=== PATIENT | male | born 1950 | race Caucasian/White ===

== ENCOUNTER → 2017-07-17 10:34 | Outpatient (CLI) | payer MEDICARE, BC, SELFPAY ==
[2017-07-17 10:54] LABS: Basophils % 0.5 % (0.1-2.0); Eosinophils # 0.1 K/mm3 (0.0-0.4); Eosinophils % 1.4 % (0.1-12.0); Hematocrit 47.1 % (42.0-52.0); Hemoglobin 15.4 g/dL (14.1-18.0); Lymphocytes # 3.6 K/mm3 (0.7-4.5); Lymphocytes % 43.2 K/mm3 (10-50); Mean Corpuscular HGB Conc 32.8 g/dL (31.8-35.4); Mean Corpuscular Hemoglobin 28.9 pg (27.0-31.2); Mean Corpuscular Volume 88.2 fl (80-94); Mean Platelet Volume 6.9 fl (7.4-10.4); Monocytes # 0.5 K/mm3 (0.1-1.0); Monocytes % 6.2 % (1.7-9.3); Neutrophils # 4.1 K/mm3 (1.8-7.8); Neutrophils % 48.7 % (37.0-80.0); Platelet Count 258 K/mm3 (142-424); Red Blood Count 5.34 M/mm3 (4.60-6.20); Red Cell Distribution Width 12.9 % (11.5-17.5); White Blood Count 8.4 K/mm3 (4.8-10.8)
[2017-07-17 11:23] LABS: Hemoglobin A1C 6.5 % (0.0-7.0)
[2017-07-17 13:03] LABS: Alanine Aminotransferase 52 U/L (12-78); Albumin Level 3.9 gm/dL (3.4-5.0); Albumin/Globulin Ratio 1.2 (1.1-1.8); Alkaline Phosphatase 46 U/L (46-116); Anion Gap 13.8 mEq/L (5-15); Aspartate Amino Transferase 32 U/L (15-37); Bilirubin,Total 0.5 mg/dL (0.2-1.0); Blood Urea Nitrogen 18 mg/dL (7-18); Carbon Dioxide 29 mmol/L (21.0-32.0); Chloride 101 mmol/L (98-107); Chol/HDL Ratio 4.5 (1-3.5); Cholesterol 159 mg/dL (140-200); Creatinine,Serum 1.44 mg/dL (0.70-1.30); Estimated Glomerular Filt Rate 49 ml/min (>60); GFR (African American) 59 ML/MIN (>60); Globulin 3.3 gm/dl (1.3-3.2); Glucose 106 mg/dL (74-106); HDL Cholesterol 35 mg/dL (27-67); LDL Cholesterol 92 mg/dL (0-130); Potassium 4.8 mmoL/L (3.5-5.1); Sodium 139 mmol/L (136-145); Total Protein,Serum 7.2 gm/dL (6.4-8.2); Triglycerides 159 mg/dL (30-200); VLDL Cholesterol 32 mg/dL (0-40)
[2017-07-19 12:08] LABS: Vitamin D 25 Hydroxy 42.1 ng/mL (30.0-100.0)
== END ==
PROVIDERS: PCP Internal Medicine Adolescent Medicine; Visit Provider Internal Medicine Adolescent Medicine
DX: E55.9 Vitamin D deficiency, unspecified (principal); E11.69 Type 2 diabetes mellitus with other specified complication; E78.5 Hyperlipidemia, unspecified
CPT/HCPCS: 36415; 80053; 80061; 82652; 83036; 85025

== ENCOUNTER → 2018-02-10 08:30 | Outpatient (CLI) | payer MEDICARE, BC, SELFPAY ==
[2018-02-10 09:00] LABS: Basophils # 0.1 K/mm3 (0-0.2); Eosinophils # 0.1 K/mm3 (0.0-0.4); Eosinophils % 1.9 % (0.1-12.0); Hematocrit 47.8 % (42.0-52.0); Hemoglobin 15.1 g/dL (14.1-18.0); Lymphocytes # 3.1 K/mm3 (0.7-4.5); Lymphocytes % 41.4 K/mm3 (10-50); Mean Corpuscular HGB Conc 31.6 g/dL (31.8-35.4); Mean Corpuscular Hemoglobin 28.9 pg (27.0-31.2); Mean Corpuscular Volume 91.3 fl (80-94); Monocytes # 0.6 K/mm3 (0.1-1.0); Monocytes % 7.4 % (1.7-9.3); Neutrophils # 3.6 K/mm3 (1.8-7.8); Neutrophils % 48.3 % (37.0-80.0); Platelet Count 229 K/mm3 (142-424); Red Blood Count 5.24 M/mm3 (4.60-6.20); Red Cell Distribution Width 13.5 % (11.5-17.5); White Blood Count 7.5 K/mm3 (4.8-10.8)
[2018-02-10 09:58] LABS: Alanine Aminotransferase 36 U/L (12-78); Albumin Level 3.6 gm/dL (3.4-5.0); Albumin/Globulin Ratio 1.1 (1.1-1.8); Alkaline Phosphatase 42 U/L (46-116); Anion Gap 10.8 mEq/L (5-15); Aspartate Amino Transferase 22 U/L (15-37); Bilirubin,Total 0.4 mg/dL (0.2-1.0); Blood Urea Nitrogen 14 mg/dL (7-18); Calcium 8.5 mg/dL (8.5-10.1); Carbon Dioxide 29 mmol/L (21.0-32.0); Chloride 106 mmol/L (98-107); Chol/HDL Ratio 4.6 (1-3.5); Cholesterol 171 mg/dL (140-200); Creatinine,Serum 1.23 mg/dL (0.70-1.30); Estimated Glomerular Filt Rate 59 ml/min (>60); GFR (African American) 71 ML/MIN (>60); Globulin 3.2 gm/dl (1.3-3.2); Glucose 112 mg/dL (74-106); HDL Cholesterol 37 mg/dL (27-67); LDL Cholesterol 99 mg/dL (0-130); Potassium 4.8 mmoL/L (3.5-5.1); Sodium 141 mmol/L (136-145); Total Protein,Serum 6.8 gm/dL (6.4-8.2); Triglycerides 173 mg/dL (30-200); VLDL Cholesterol 35 mg/dL (0-40)
[2018-02-10 10:05] LABS: Hemoglobin A1C 6.4 % (0.0-7.0)
[2018-02-12 12:52] LABS: Vitamin D 25 Hydroxy 53.7 ng/mL (30.0-100.0)
== END ==
PROVIDERS: PCP Internal Medicine Adolescent Medicine; Visit Provider Internal Medicine Adolescent Medicine
DX: E11.69 Type 2 diabetes mellitus with other specified complication (principal); E78.5 Hyperlipidemia, unspecified; E55.9 Vitamin D deficiency, unspecified
CPT/HCPCS: 36415; 80053; 80061; 82652; 83036; 85025

== ENCOUNTER → 2018-04-03 12:51 | Outpatient (CLI) | payer MEDICARE, BC, SELFPAY | PROVIDERS: Visit Provider Urology | DX: N39.0 Urinary tract infection, site not specified (principal) | CPT/HCPCS: 87086; 87088; 87186 ==

== ENCOUNTER 2018-07-20 20:09 | Emergency (ER) | payer MEDICARE, BC, SELFPAY ==
[2018-07-20 20:10] VITALS: BP 159/81; PULSE 94; RESP 18; TEMP 36.9; O2SAT 91; BMI 34.2
--- NOTE | 2018-07-20 20:45 | CT_ITS ---
CT soft tissue neck w con Ordering Physician: Henry Aaron MD Patient Age: 67 years: Male HISTORY: I.: pastic toothpick stuck in throat 2 days he fell asleep with it and now couldn't find it wasn't woke up. Feels like something in his throat. Smoker... (Patient stated he may be allergic to contrast CT head burning in hands and feet with contrast [address] Aaron increased temp utilize contrast with no reaction noted) TECHNIQUE: Helical CT scanning Following 75 cc, Optiray 350. Axial sagittal and coronal reconstructions performed on CT workstation. All CT scans at this facility used one or more dose reduction techniques , viz: automatic exposure control, ma/Kv adjustment per patient's size, (including targeted exam where dose matched to the indication; i.e. head); or iterative reconstruction technique COMPARISON :No relevant studies of neck. There is CTAchest March 2016 but it did not include lower neck . Rib series March 2016 includes base of neck on plain film . FINDINGS . No abscess evident. No focal area of significant inflammation nor swelling evident.. . No appreciable radiopaque foreign body is identified either.. I would note that a plastic toothpick is likely not radiopaque and thus not evident but if this occurred 2 days ago I would expect to see an area of significant reaction if there were significant mucosal injury from the questionable ingested toothpick The patient does but still have moderate size palatine tonsils bilaterally,.-These contain focal areas calcification. Along with some small subtle less dense areas likely due to crypts... I doubt these are significance but if the symptoms persist ENT follow-up to further suspect warranted if symptoms here at the hypopharynx or above. Other specialists for endoscopy otherwise to be considered if symptoms persist at lower neck . vallecula and piriform sinuses satisfactory. Level of vocal cords unremarkable. Trachea the cervical esophagus down to the upper neck appears satisfactory. There is some larynx calcification which extends back on right more so than left and resides just adjacent to the lower cervical esophagus axial slice 76. Appendix is normal cartilage calcification but noted. Thyroid appears normal size. Calcification throughout aortic arch. Mild fullness at the base the tongue on the right noted but nonspecific. No enhancing mass. Cervical spine. Multilevel degenerative disc changes & cervical spondylosis most pronounced from C3 through C7. Prominent degenerative features at these multiple levels yields bilateral foraminal encroachment as well as spinal stenosis multiple levels throughout C-spine... Significant Disc space narrowing with posterior osteophytic ridging & spurring at each of these levels. .. With this there are anterior marginal osteophytes which are most most evident C5-C6, but also at C4/5 C3/4 which may. Upon the posterior aspect of the cervical esophagus and can be a source of throat irritation or dysphasia as well. Calcifications at carotid bifurcations bilaterally,. Atherosclerotic Calcification most evident at the left carotid bifurcation estimated less than 20-25 % stenosis due to such at left carotid bifurcation and injury of left ICA.. Mucosal thickening inferior aspect of small sphenoid sinus incidentally noted reflecting some mild inflammatory changes here. Otherwise the maxillary sinuses clear and ethmoid air cells unremarkable. IMPRESSION....... 1. No radiopaque nor nonradiopaque foreign body is identified or appreciable.. . No discrete abscess. No focal inflammation or swelling. Swelling The patient has moderate-sized palatine tonsils-which are slightly heterogeneous bilaterally but I believe within normal limits. They do contain calcifications bilaterally. Fair
[2018-07-20 21:03] LABS: Basophils # 0.1 K/mm3 (0-0.2); Basophils % 0.8 % (0.1-2.0); Eosinophils # 0.1 K/mm3 (0.0-0.4); Eosinophils % 1.3 % (0.1-12.0); Hematocrit 46.6 % (42.0-52.0); Hemoglobin 14.8 g/dL (14.1-18.0); Lymphocytes # 3.2 K/mm3 (0.7-4.5); Mean Corpuscular HGB Conc 31.8 g/dL (31.8-35.4); Mean Corpuscular Hemoglobin 28.7 pg (27.0-31.2); Mean Corpuscular Volume 90.4 fl (80-94); Mean Platelet Volume 6.7 fl (7.4-10.4); Monocytes # 0.5 K/mm3 (0.1-1.0); Monocytes % 6.2 % (1.7-9.3); Neutrophils % 50.7 % (37.0-80.0); Platelet Count 224 K/mm3 (142-424); Red Blood Count 5.15 M/mm3 (4.60-6.20); Red Cell Distribution Width 13.3 % (11.5-17.5); White Blood Count 7.9 K/mm3 (4.8-10.8)
[2018-07-20 21:09] LABS: Anion Gap 10.4 mEq/L (5-15); Blood Urea Nitrogen 25 mg/dL (7-18); Carbon Dioxide 30 mmol/L (21.0-32.0); Chloride 104 mmol/L (98-107); Creatinine Clearance Estimated 71 mL/min (50-200); Creatinine,Serum 1.48 mg/dL (0.70-1.30); Estimated Glomerular Filt Rate 47 ml/min (>60); GFR (African American) 57 ML/MIN (>60); Glucose 101 mg/dL (74-106); Potassium 4.4 mmoL/L (3.5-5.1); Sodium 140 mmol/L (136-145)
--- NOTE | 2018-07-20 21:16 | HMH.EDSKAF ---
ED Disposition Clinical Impression: Foreign body, Renal insufficiency Disposition: Home, Self-Care Condition on Discharge: Good Instructions: DI for Foreign Body, Swallowed-Adult Additional Instructions: see dr lee tomorrow at 130 pm Referrals: Obi Lock MD [Primary Care Provider] - - Critical Care Critical Care Time: No Attestation: On 07/20/18, the high probability of a clinically significant, sudden or life threatening deterioration of the following system(s) required my full and direct attention, intervention and personal management. The time I documented below is in addition to time spent performing reported procedures but includes the following listed in this critical care notation. Medical Decision Making - Medical Records Medical records reviewed: Yes: I reviewed the patient's medical records. - Jeronimo Inquiry Pt receiving controlled substance: No Vital Signs: 07/20/18 20:10 Temperature 98.5 F Temperature Source Oral Pulse Rate [Right Brachial] 94 H Respiratory Rate 18 Blood Pressure [Right Arm] 159/81 H Blood Pressure Mean [Right Arm] 107 Blood Pressure Source [Right Arm] Automatic Cuff Blood Pressure Position [Right Arm] Sitting 02 Sat by Pulse Oximetry 91 L Oxygen Delivery Method Room Air - Lab Data Lab results reviewed: Yes: I reviewed the patient's lab results. Lab Results 07/20/18 20:50: WBC 7.9, RBC 5.15, Hgb 14.8, Hct 46.6, MCV 90.4, MCH 28.7, MCHC 31.8, RDW 13.3, Plt Count 224, MPV 6.7 L, Neut % (Auto) 50.7, Lymph % (Auto) 41.0, Crockett % (Auto) 6.2, Eos % (Auto) 1.3, Baso % (Auto) 0.8, Neut # (Auto) 4.0, Lymph # (Auto) 3.2, Crockett # (Auto) 0.5, Eos # (Auto) 0.1, Baso # (Auto) 0.1 07/20/18 20:50: Sodium 140, Potassium 4.4, Chloride 104, Carbon Dioxide 30, Anion Gap 10.4, BUN 25 H, Creatinine 1.48 H, Estimated Creat Clear 71, Estimated GFR 47 L, Est GFR ( Amer) 57 L, Glucose 101, Calcium 9.0 Result diagrams: 07/20/18 20:50 07/20/18 20:50 Orders (Tests/Meds): ED MEDICATIONS Generic Name Dose Route Start Last Admin Trade Name Freq PRN Reason Stop Dose Admin Sodium Chloride 1,000 mls @ 999 mls/hr 07/20/18 21:15 07/20/18 21:18 Sod Chlor 0.9% 1000ml Bag IV 07/20/18 22:15 999 mls/hr .Q1H1M ALBINA Administration Sodium Chloride 10 ml 07/20/18 20:53 Saline Flush 10ml Syringe IV 08/19/18 20:52 NEEDED PRN Maintain IV Site Discontinued Medications Generic Name Dose Route Start Last Admin Trade Name Freq PRN Reason Stop Dose Admin Sodium Chloride 10 ml 07/20/18 22:34 07/20/18 22:35 Rad-Saline Flush 10ml Syringe IV 07/20/18 22:35 10 ml ONCE ONE Administration ORDERS Category Date Time Status CT soft tissue neck w con Stat Cat Scan 07/20/18 20:45 Taken - CT Data CT Scan: Other (neck) Time Received: 22:[address] Reviewed: Yes: I have viewed the radiologist's interpretation Preliminary Findings: Abnormal (see report) Skin/Abscess/FB HPI - General Chief complaint: Dental/Oral Stated complaint: AO 0215 Swallow a tooth pick Time Seen by Provider: 07/20/18 20:30 Mode of Arrival: Ambulatory Source of Information: Patient, Spouse, Medical Record Limitations: No Limitations Description of Symptoms (Recalled from ER Triage Doc. by RN): Believes he swallowed a plastic toothpick on the . He states he isn't 100% sure he swallowed it but believes it is caught in his throat. States he feel asleep with it in his mouth. Denies pain, and any problems swallowing. - History of Present Illness HPI narrative: possible swallowed toothpick - plastic about 2 days ago with lt hypopharynx lt with nofever or change in voice - pt with no esophageal pain MD complaint: foreign body Onset (ago): day(s) Tetanus up to date: unsure Location: neck Severity: moderate Associated symptoms: denies other symptoms Treatments prior to arrival: none - Relate
[2018-07-20 23:09] VITALS: BP 138/79; PULSE 79; RESP 16; TEMP 36.6; O2SAT 99
== END 2018-07-20 23:15 | disposition home or self-care (01) ==
PROVIDERS: Emergency Provider Emergency Medicine; PCP Internal Medicine Adolescent Medicine
DX: T18.0XXA Foreign body in mouth, initial encounter (principal); Z51.81 Encounter for therapeutic drug level monitoring; J45.909 Unspecified asthma, uncomplicated; E78.5 Hyperlipidemia, unspecified; F17.210 Nicotine dependence, cigarettes, uncomplicated; N28.9 Disorder of kidney and ureter, unspecified
CPT/HCPCS: 70491; 80048; 85025; 96365; 99283

== ENCOUNTER → 2018-08-06 10:09 | Outpatient (CLI) | payer MEDICARE, BC, SELFPAY ==
[2018-08-06 11:09] LABS: Basophils # 0.1 K/mm3 (0-0.2); Basophils % 0.9 % (0.1-2.0); Eosinophils # 0.1 K/mm3 (0.0-0.4); Eosinophils % 1.2 % (0.1-12.0); Hematocrit 48.3 % (42.0-52.0); Hemoglobin 15.7 g/dL (14.1-18.0); Lymphocytes # 2.6 K/mm3 (0.7-4.5); Lymphocytes % 36.9 % (10-50); Mean Corpuscular HGB Conc 32.5 g/dL (31.8-35.4); Mean Corpuscular Hemoglobin 29.1 pg (27.0-31.2); Mean Corpuscular Volume 89.4 fl (80-94); Mean Platelet Volume 7.2 fl (7.4-10.4); Monocytes # 0.4 K/mm3 (0.1-1.0); Monocytes % 5.8 % (1.7-9.3); Neutrophils # 3.9 K/mm3 (1.8-7.8); Neutrophils % 55.2 % (37.0-80.0); Platelet Count 244 K/mm3 (142-424); Red Cell Distribution Width 13.4 % (11.5-17.5); White Blood Count 7.1 K/mm3 (4.8-10.8)
[2018-08-06 11:12] LABS: Alanine Aminotransferase 44 U/L (12-78); Albumin Level 3.8 gm/dL (3.4-5.0); Albumin/Globulin Ratio 1.1 (1.1-1.8); Alkaline Phosphatase 49 U/L (46-116); Anion Gap 11.8 mEq/L (5-15); Aspartate Amino Transferase 27 U/L (15-37); Bilirubin,Total 0.6 mg/dL (0.2-1.0); Blood Urea Nitrogen 21 mg/dL (7-18); Calcium 9.2 mg/dL (8.5-10.1); Carbon Dioxide 29 mmol/L (21.0-32.0); Chloride 98 mmol/L (98-107); Chol/HDL Ratio 4.9 (1-3.5); Cholesterol 157 mg/dL (140-200); Creatinine,Serum 1.44 mg/dL (0.70-1.30); Estimated Glomerular Filt Rate 49 ml/min (>60); GFR (African American) 59 ML/MIN (>60); Globulin 3.6 gm/dl (1.3-3.2); Glucose 131 mg/dL (74-106); HDL Cholesterol 32 mg/dL (27-67); LDL Cholesterol 103 mg/dL (0-130); Potassium 4.8 mmoL/L (3.5-5.1); Sodium 134 mmol/L (136-145); Total Protein,Serum 7.4 gm/dL (6.4-8.2); Triglycerides 112 mg/dL (30-200); VLDL Cholesterol 22 mg/dL (0-40)
[2018-08-06 11:30] LABS: Hemoglobin A1C 6.6 % (0.0-7.0)
[2018-08-09 10:09] LABS: Vitamin D 25 Hydroxy 47.6 ng/mL (30.0-100.0)
== END ==
PROVIDERS: Visit Provider Internal Medicine Adolescent Medicine
DX: E78.5 Hyperlipidemia, unspecified (principal); E11.69 Type 2 diabetes mellitus with other specified complication; E55.9 Vitamin D deficiency, unspecified; Z79.84 Long term (current) use of oral hypoglycemic drugs
CPT/HCPCS: 36415; 80053; 80061; 82652; 83036; 85025

== ENCOUNTER → 2018-11-06 12:02 | Outpatient (CLI) | payer MEDICARE, BC, SELFPAY ==
[2018-11-06 12:49] LABS: Basophils # 0.1 K/mm3 (0-0.2); Basophils % 0.7 % (0.1-2.0); Eosinophils # 0.1 K/mm3 (0.0-0.4); Eosinophils % 1.1 % (0.1-12.0); Hematocrit 48.5 % (42.0-52.0); Hemoglobin 15.4 g/dL (14.1-18.0); Lymphocytes # 2.4 K/mm3 (0.7-4.5); Mean Corpuscular HGB Conc 31.9 g/dL (31.8-35.4); Mean Corpuscular Hemoglobin 27.3 pg (27.0-31.2); Mean Corpuscular Volume 85.6 fl (80-94); Mean Platelet Volume 6.6 fl (7.4-10.4); Monocytes # 0.5 K/mm3 (0.1-1.0); Neutrophils # 3.7 K/mm3 (1.8-7.8); Neutrophils % 55.1 % (37.0-80.0); Platelet Count 218 K/mm3 (142-424); Red Blood Count 5.67 M/mm3 (4.60-6.20); Red Cell Distribution Width 13.4 % (11.5-17.5); White Blood Count 6.7 K/mm3 (4.8-10.8)
[2018-11-06 15:43] LABS: Alanine Aminotransferase 39 U/L (12-78); Albumin Level 3.5 gm/dL (3.4-5.0); Alkaline Phosphatase 81 U/L (46-116); Anion Gap 13.8 mEq/L (5-15); Aspartate Amino Transferase 24 U/L (15-37); Bilirubin,Total 0.5 mg/dL (0.2-1.0); Blood Urea Nitrogen 17 mg/dL (7-18); Calcium 8.5 mg/dL (8.5-10.1); Carbon Dioxide 28 mmol/L (21.0-32.0); Chloride 101 mmol/L (98-107); Chol/HDL Ratio 4.2 (1-3.5); Cholesterol 160 mg/dL (140-200); Creatinine,Serum 1.07 mg/dL (0.70-1.30); Estimated Glomerular Filt Rate 69 ml/min (>60); GFR (African American) 83 ML/MIN (>60); Globulin 3.4 gm/dl (1.3-3.2); Glucose 109 mg/dL (74-106); HDL Cholesterol 38 mg/dL (27-67); LDL Cholesterol 90 mg/dL (0-130); Potassium 4.8 mmoL/L (3.5-5.1); Sodium 138 mmol/L (136-145); Total Protein,Serum 6.9 gm/dL (6.4-8.2); Triglycerides 161 mg/dL (30-200); VLDL Cholesterol 32 mg/dL (0-40)
[2018-11-06 15:58] LABS: Hemoglobin A1C 5.9 % (0.0-7.0)
== END ==
PROVIDERS: Visit Provider Internal Medicine Adolescent Medicine
DX: E11.69 Type 2 diabetes mellitus with other specified complication (principal); E78.5 Hyperlipidemia, unspecified; I10 Essential (primary) hypertension; Z79.84 Long term (current) use of oral hypoglycemic drugs
CPT/HCPCS: 36415; 80053; 80061; 83036; 85025

== ENCOUNTER → 2019-03-09 10:26 | Outpatient (CLI) | payer MEDICARE, BC, SELFPAY ==
[2019-03-09 10:46] LABS: Basophils # 0.1 K/mm3 (0-0.2); Basophils % 0.9 % (0.1-2.0); Eosinophils # 0.1 K/mm3 (0.0-0.4); Eosinophils % 1.2 % (0.1-12.0); Hematocrit 50.5 % (42.0-52.0); Hemoglobin 15.6 g/dL (14.1-18.0); Lymphocytes # 2.9 K/mm3 (0.7-4.5); Lymphocytes % 35.7 % (10-50); Mean Corpuscular Hemoglobin 28.8 pg (27.0-31.2); Mean Corpuscular Volume 93.1 fl (80-94); Mean Platelet Volume 7.5 fl (7.4-10.4); Monocytes # 0.5 K/mm3 (0.1-1.0); Monocytes % 6.1 % (1.7-9.3); Neutrophils # 4.6 K/mm3 (1.8-7.8); Neutrophils % 56.3 % (37.0-80.0); Platelet Count 207 K/mm3 (142-424); Red Blood Count 5.42 M/mm3 (4.60-6.20); Red Cell Distribution Width 14.2 % (11.5-17.5); White Blood Count 8.2 K/mm3 (4.8-10.8)
[2019-03-09 11:10] LABS: Hemoglobin A1C 6.4 % (0.0-7.0)
[2019-03-09 12:59] LABS: Alanine Aminotransferase 38 U/L (12-78); Albumin Level 3.5 gm/dL (3.4-5.0); Albumin/Globulin Ratio 1.1 (1.1-1.8); Alkaline Phosphatase 77 U/L (46-116); Aspartate Amino Transferase 25 U/L (15-37); Bilirubin,Total 0.5 mg/dL (0.2-1.0); Blood Urea Nitrogen 15 mg/dL (7-18); Calcium 8.8 mg/dL (8.5-10.1); Carbon Dioxide 30 mmol/L (21.0-32.0); Chloride 101 mmol/L (98-107); Chol/HDL Ratio 3.8 (1-3.5); Cholesterol 144 mg/dL (140-200); Estimated Glomerular Filt Rate 74 ml/min (>60); GFR (African American) 90 ML/MIN (>60); Globulin 3.3 gm/dl (1.3-3.2); Glucose 112 mg/dL (74-106); HDL Cholesterol 38 mg/dL (27-67); LDL Cholesterol 62 mg/dL (0-130); Sodium 139 mmol/L (136-145); Total Protein,Serum 6.8 gm/dL (6.4-8.2); Triglycerides 219 mg/dL (30-200); VLDL Cholesterol 44 mg/dL (0-40)
== END ==
PROVIDERS: Visit Provider Internal Medicine Adolescent Medicine
DX: E11.69 Type 2 diabetes mellitus with other specified complication (principal); Z79.84 Long term (current) use of oral hypoglycemic drugs; E55.9 Vitamin D deficiency, unspecified; E78.5 Hyperlipidemia, unspecified
CPT/HCPCS: 36415; 80053; 80061; 83036; 85025

== ENCOUNTER → 2019-04-17 09:13 | Outpatient (CLI) | payer MEDICARE, BC, SELFPAY ==
--- NOTE | 2019-04-17 09:19 | CA_ITS ---
APPROVED REPORT EXAM: Comprehensive 2D, Doppler, and color-flow Echocardiogram Auto Damage Estimator: Mavis Wiggins RVT Ht: 5 ft 9 in Wt: 240lbs BSA: 2.23 BP: 132/67 mmHg Indications: Bubble Study,Prior PFO closure 2007, Chest Pain, COPD, Shortness of Breath, Palpitations, Hyperlipidemia, Hypertension,Smoker Echo Enhancing Agent Indication: Rule out Shunt Agent(s) / Amount(s) Used: Agitated Saline 5 cc 2D Dimensions LVOT 2.18 cm (M/F) 1.5-2.5 M-Mode Dimensions RVDd 3.22 cm (0.9-2.6) LA Diam 3.70 cm (1.9-4.0) LVDd 4.94 cm (3.5-5.7) Ao Diam 3.50 cm (2.0-3.7) LVDs 2.89 cm (3.5-5.7) AV Cusp 1.80 cm (1.5-2.6) IVSd 1.10 cm (0.6-1.1) PWd 0.81 cm (0.6-1.1) EF (Teich) 72.30% FS 41.50% EDV (Teich) 115.00 mL ESV (Teich) 31.90 mL LV Diastology E/A Ratio 0.82 Mitral Valve MV A Velocity 59.00 (40-130 cm/s) Left Ventricle Left atrium is mildly enlarged, left ventricle is normal size, mild concentric left ventricular hypertrophy, visually estimated ejection fraction 55% with no regional wall motion abnormality, grade 1 diastolic dysfunction seen without tissue Doppler evidence of raise left atrial pressure. Right Ventricle Right atrium and right ventricle mildly enlarged with normal contractility. Aortic Valve Aortic valve is thickened and calcified leaflet chordae display good mobility, there is no aortic stenosis, there is mild aortic insufficiency. Mitral Valve Mitral valve leaflets are minimally thickened, there is no mitral stenosis, there is mild mitral regurgitation. Tricuspid Valve Tricuspid valve is grossly normal, there is mild tricuspid regurgitation, tricuspid regurgitation jet velocity is inadequate for calculation of the right ventricular systolic pressure. Pulmonic Valve Pulmonic valve is poorly visualized. Great Vessels Aortic root is normal size. Pericardium No significant pericardial effusion noted. Conclusion 1. Mild biatrial enlargement, normal left ventricular size, mild concentric left ventricular hypertrophy, visually estimated ejection fraction 55% with no regional wall motion abnormality, grade 1 diastolic dysfunction seen without tissue Doppler evidence of raise left atrial pressure. 2. Mildly enlarged right ventricle with normal contractility. 3. Mild aortic, mild mitral and tricuspid regurgitation. 4. Agitated saline contrast study fails to identify intracardiac shunt. Electronically signed by : Rito Velasco, 04/18/2019 12:28:35
== END ==
PROVIDERS: PCP Internal Medicine Adolescent Medicine; Visit Provider Internal Medicine Adolescent Medicine
DX: Z87.74 Personal history of (corrected) congenital malformations of heart and circulatory system (principal); Q21.1 Atrial septal defect
CPT/HCPCS: 93306

== ENCOUNTER → 2019-06-11 11:59 | Outpatient (CLI) | payer MEDICARE, BC, SELFPAY ==
[2019-06-11 14:03] LABS: Prostate Specific Ag Screen 2.6 ng/mL (0.0-4.0)
== END ==
PROVIDERS: Visit Provider Urology
DX: Z12.5 Encounter for screening for malignant neoplasm of prostate (principal)
CPT/HCPCS: 36415; G0103

== ENCOUNTER → 2019-06-22 12:02 | Outpatient (CLI) | payer MEDICARE, BC, SELFPAY ==
[2019-06-22 12:16] LABS: Basophils # 0.1 K/mm3 (0-0.2); Basophils % 0.6 % (0.1-2.0); Eosinophils # 0.1 K/mm3 (0.0-0.4); Hematocrit 54.8 % (42.0-52.0); Hemoglobin 17.4 g/dL (14.1-18.0); Lymphocytes % 28.8 % (10-50); Mean Corpuscular HGB Conc 31.8 g/dL (31.8-35.4); Mean Corpuscular Hemoglobin 29.4 pg (27.0-31.2); Mean Corpuscular Volume 92.6 fl (80-94); Mean Platelet Volume 7.4 fl (7.4-10.4); Monocytes # 0.5 K/mm3 (0.1-1.0); Monocytes % 4.6 % (1.7-9.3); Neutrophils # 6.9 K/mm3 (1.8-7.8); Platelet Count 212 K/mm3 (142-424); Red Blood Count 5.92 M/mm3 (4.60-6.20); Red Cell Distribution Width 13.5 % (11.5-17.5); White Blood Count 10.6 K/mm3 (4.8-10.8)
[2019-06-22 14:36] LABS: Alanine Aminotransferase 41 U/L (12-78); Albumin Level 3.7 gm/dL (3.4-5.0); Albumin/Globulin Ratio 1.1 (1.1-1.8); Alkaline Phosphatase 85 U/L (46-116); Anion Gap 11.6 mEq/L (5-15); Aspartate Amino Transferase 19 U/L (15-37); Bilirubin,Total 0.6 mg/dL (0.2-1.0); Blood Urea Nitrogen 22 mg/dL (7-18); Calcium 8.8 mg/dL (8.5-10.1); Carbon Dioxide 30 mmol/L (21.0-32.0); Chloride 99 mmol/L (98-107); Chol/HDL Ratio 3.8 (1-3.5); Cholesterol 179 mg/dL (140-200); Creatinine,Serum 1.22 mg/dL (0.70-1.30); Estimated Glomerular Filt Rate 59 ml/min (>60); GFR (African American) 71 ML/MIN (>60); Globulin 3.3 gm/dl (1.3-3.2); Glucose 130 mg/dL (74-106); HDL Cholesterol 47 mg/dL (27-67); LDL Cholesterol 110 mg/dL (0-130); Potassium 4.6 mmoL/L (3.5-5.1); Sodium 136 mmol/L (136-145); Triglycerides 108 mg/dL (30-200); VLDL Cholesterol 22 mg/dL (0-40)
[2019-06-22 15:00] LABS: Hemoglobin A1C 6.7 % (0.0-7.0)
== END ==
PROVIDERS: Visit Provider Internal Medicine Adolescent Medicine
DX: E78.5 Hyperlipidemia, unspecified (principal); E11.69 Type 2 diabetes mellitus with other specified complication; Z79.84 Long term (current) use of oral hypoglycemic drugs
CPT/HCPCS: 36415; 80053; 80061; 83036; 85025

== ENCOUNTER → 2019-10-20 09:48 | Outpatient (CLI) | payer MEDICARE, BC, SELFPAY ==
[2019-10-20 10:25] LABS: Basophils # 0.1 K/mm3 (0-0.2); Eosinophils # 0.1 K/mm3 (0.0-0.4); Eosinophils % 1.8 % (0.1-12.0); Hematocrit 48.2 % (42.0-52.0); Hemoglobin 15.5 g/dL (14.1-18.0); Lymphocytes # 2.8 K/mm3 (0.7-4.5); Lymphocytes % 39.6 % (10-50); Mean Corpuscular HGB Conc 32.1 g/dL (31.8-35.4); Mean Corpuscular Hemoglobin 28.9 pg (27.0-31.2); Mean Corpuscular Volume 89.8 fl (80-94); Mean Platelet Volume 7.2 fl (7.4-10.4); Monocytes # 0.5 K/mm3 (0.1-1.0); Monocytes % 6.8 % (1.7-9.3); Neutrophils # 3.6 K/mm3 (1.8-7.8); Neutrophils % 50.9 % (37.0-80.0); Platelet Count 189 K/mm3 (142-424); Red Blood Count 5.36 M/mm3 (4.60-6.20); Red Cell Distribution Width 13.7 % (11.5-17.5)
[2019-10-20 11:05] LABS: Chloride 101 mmol/L (98-107); Potassium 4.7 mmoL/L (3.5-5.1); Sodium 134 mmol/L (136-145)
[2019-10-20 11:07] LABS: Blood Urea Nitrogen 15 mg/dl (9-20); Estimated Glomerular Filt Rate 84 ml/min (>60); GFR (African American) 101 ML/MIN (>60)
[2019-10-20 11:08] LABS: Alanine Aminotransferase 40 U/L (12-78); Albumin Level 3.7 g/dl (3.5-5.0); Albumin/Globulin Ratio 1.4 (1.1-1.8); Alkaline Phosphatase 71 U/L (38-126); Anion Gap 10.7 mEq/L (5-15); Aspartate Amino Transferase 31 U/L (17-59); Bilirubin,Total 0.6 mg/dl (0.2-1.3); Calcium 8.4 mg/dl (8.4-10.2); Carbon Dioxide 27 mmol/L (22.0-30.0); Chol/HDL Ratio 3.7 (1-3.5); Cholesterol 129 mg/dl (140-200); Globulin 2.6 g/dL (1.3-3.2); Glucose 130 mg/dl (74-100); HDL Cholesterol 35 mg/dl (40-60); Total Protein,Serum 6.3 g/dl (6.3-8.2); Triglycerides 248 mg/dl (30-150); VLDL Cholesterol 50 mg/dL (0-40)
[2019-10-20 11:19] LABS: Direct LDL Cholesterol 86.05 mg/dL (100-129)
[2019-10-20 13:32] LABS: Hemoglobin A1C 6.6 % (4.0-6.0)
[2019-10-21 11:28] LABS: Vitamin D 25 Hydroxy 45.3 ng/mL (30.0-100.0)
== END ==
PROVIDERS: Visit Provider Internal Medicine Adolescent Medicine
DX: E78.5 Hyperlipidemia, unspecified (principal); E55.9 Vitamin D deficiency, unspecified; E11.69 Type 2 diabetes mellitus with other specified complication; Z79.84 Long term (current) use of oral hypoglycemic drugs
CPT/HCPCS: 36415; 80053; 80061; 82652; 83036; 85025

== ENCOUNTER → 2019-11-03 10:11 | Outpatient (CLI) | payer MEDICARE, BC, SELFPAY ==
--- NOTE | 2019-11-03 10:14 | CT_ITS ---
PROCEDURE: CT CHEST W CON CLINCAL INDICATION: COUGH Cough and shortness of air COMPARISON: CTAC CTA-CHEST from 03/28/[address] soft tissue neck w con from 07/20/2018 TECHNIQUE: IV Contrast: 75ml Optiray 350 Axial images obtained with sagittal and coronal reformats. All CT scans at the facility use one or more dose reduction, viz: automated exposure control, ma/kV adjustment per patient size (including targeted exams where dose is matched to indication, i.e. head), or iterative reconstruction technique. FINDINGS: HEART AND MEDIASTINAL STRUCTURES: No mediastinal or hilar mass. No evidence of aortic aneurysm or dissection. No evidence central pulmonary embolus. There is extensive coronary artery calcification. There are a few small mediastinal lymph nodes not significantly changed. LUNGS AND PLEURAL SPACES: COPD with scattered areas of scarring. There is biapical scarring. Scarring is noted in the lingula and the left lower lobe laterally with some mild bronchiectasis in the left lower lobe posterior laterally. No suspicious pulmonary nodules apparent. The scarring in the lung apices appears similar compared to 07/20/2018. The BONY STRUCTURES: Degenerative changes thoracic spine UPPER ABDOMEN: There are left renal cysts ADDITIONAL FINDINGS: No other significant abnormalities. IMPRESSION: 1. COPD with centrilobular emphysema and scattered areas of scarring. 2. Extensive coronary artery calcification. 3. No acute findings Dictated by: Elijah Carr MD 11/04/2019 09:32 Electronically signed by Elijah Carr MD in [place] 11/04/2019 09:32
== END ==
PROVIDERS: PCP Internal Medicine Adolescent Medicine; Visit Provider Internal Medicine Adolescent Medicine
DX: R05 Cough (principal)
CPT/HCPCS: 71260; Q9967

== ENCOUNTER → 2020-03-31 10:06 | Outpatient (CLI) | payer MEDICARE, BC, SELFPAY ==
[2020-03-31 10:54] LABS: Basophils # 0.1 K/mm3 (0-0.2); Basophils % 0.7 % (0.1-2.0); Eosinophils # 0.1 K/mm3 (0.0-0.4); Eosinophils % 1.1 % (0.1-12.0); Hematocrit 51.2 % (42.0-52.0); Hemoglobin 17.3 g/dL (14.1-18.0); Lymphocytes # 3.6 K/mm3 (0.7-4.5); Lymphocytes % 36.1 % (10-50); Mean Corpuscular HGB Conc 33.8 g/dL (31.8-35.4); Mean Corpuscular Hemoglobin 30.5 pg (27.0-31.2); Mean Corpuscular Volume 90.1 fl (80-94); Mean Platelet Volume 7.1 fl (7.4-10.4); Monocytes # 0.6 K/mm3 (0.1-1.0); Monocytes % 5.7 % (1.7-9.3); Neutrophils # 5.6 K/mm3 (1.8-7.8); Neutrophils % 56.4 % (37.0-80.0); Platelet Count 196 K/mm3 (142-424); Red Blood Count 5.68 M/mm3 (4.60-6.20); Red Cell Distribution Width 13.4 % (11.5-17.5)
[2020-03-31 11:03] LABS: Hemoglobin A1C 6.5 % (4.0-6.0)
[2020-03-31 11:49] LABS: Chloride 97 mmol/L (98-107); Sodium 135 mmol/L (136-145)
[2020-03-31 11:51] LABS: Alanine Aminotransferase 48 U/L (12-78); Aspartate Amino Transferase 40 U/L (17-59); Blood Urea Nitrogen 23 mg/dl (9-20); Estimated Glomerular Filt Rate 60 ml/min (>60); GFR (African American) 72 ML/MIN (>60)
[2020-03-31 11:52] LABS: Albumin Level 4.4 g/dl (3.5-5.0); Albumin/Globulin Ratio 1.6 (1.1-1.8); Alkaline Phosphatase 71 U/L (38-126); Bilirubin,Total 0.8 mg/dl (0.2-1.3); Calcium 9.4 mg/dl (8.4-10.2); Carbon Dioxide 30 mmol/L (22.0-30.0); Cholesterol 170 mg/dl (140-200); Globulin 2.7 g/dL (1.3-3.2); Glucose 115 mg/dl (74-100); Total Protein,Serum 7.1 g/dl (6.3-8.2); Triglycerides 248 mg/dl (30-150); VLDL Cholesterol 50 mg/dL (0-40)
[2020-03-31 11:53] LABS: Chol/HDL Ratio 4.9 (1-3.5); HDL Cholesterol 35 mg/dl (40-60)
[2020-03-31 12:04] LABS: Direct LDL Cholesterol 95.35 mg/dL (100-129)
[2020-03-31 12:10] LABS: 25-OH Vitamin D, Total 49.7 ng/mL (30-100)
== END ==
PROVIDERS: Visit Provider Internal Medicine Adolescent Medicine
DX: E78.5 Hyperlipidemia, unspecified (principal); E55.9 Vitamin D deficiency, unspecified; E11.69 Type 2 diabetes mellitus with other specified complication; Z79.84 Long term (current) use of oral hypoglycemic drugs
CPT/HCPCS: 36415; 80053; 80061; 82306; 83036; 85025

== ENCOUNTER → 2020-06-14 14:16 | Outpatient (CLI) | payer MEDICARE, BC, SELFPAY ==
[2020-06-14 15:52] LABS: Prostate Specific Ag Screen 2.4 ng/ml (0.0-4.0)
== END ==
PROVIDERS: Visit Provider Urology
DX: Z12.5 Encounter for screening for malignant neoplasm of prostate (principal)
CPT/HCPCS: 36415; G0103

== ENCOUNTER → 2020-08-06 07:35 | Outpatient (CLI) | payer MEDICARE, BC, SELFPAY ==
[2020-08-06 08:21] LABS: Basophils # 0.1 K/mm3 (0-0.2); Basophils % 0.6 % (0.1-2.0); Eosinophils # 0.1 K/mm3 (0.0-0.4); Eosinophils % 1.4 % (0.1-12.0); Hematocrit 51.5 % (42.0-52.0); Hemoglobin 16.3 g/dL (14.1-18.0); Lymphocytes # 3.3 K/mm3 (0.7-4.5); Lymphocytes % 36.7 % (10-50); Mean Corpuscular HGB Conc 31.8 g/dL (31.8-35.4); Mean Corpuscular Hemoglobin 29.6 pg (27.0-31.2); Mean Corpuscular Volume 93.1 fl (80-94); Mean Platelet Volume 7.5 fl (7.4-10.4); Monocytes # 0.5 K/mm3 (0.1-1.0); Monocytes % 5.3 % (1.7-9.3); Platelet Count 219 K/mm3 (142-424); Red Blood Count 5.53 M/mm3 (4.60-6.20); Red Cell Distribution Width 13.4 % (11.5-17.5); White Blood Count 8.9 K/mm3 (4.8-10.8)
[2020-08-06 08:33] LABS: Hemoglobin A1C 7.8 % (4.0-6.0)
[2020-08-06 09:06] LABS: Chloride 100 mmol/L (98-107); Potassium 5.4 mmoL/L (3.5-5.1); Sodium 139 mmol/L (136-145)
[2020-08-06 09:08] LABS: Alanine Aminotransferase 39 U/L (12-78); Aspartate Amino Transferase 33 U/L (17-59); Blood Urea Nitrogen 19 mg/dl (9-20); Estimated Glomerular Filt Rate 66 ml/min (>60); GFR (African American) 80 ML/MIN (>60)
[2020-08-06 09:09] LABS: Albumin Level 4.4 g/dl (3.5-5.0); Albumin/Globulin Ratio 1.5 (1.1-1.8); Alkaline Phosphatase 96 U/L (38-126); Anion Gap 12.4 mEq/L (5-15); Bilirubin,Total 0.6 mg/dl (0.2-1.3); Calcium 9.5 mg/dl (8.4-10.2); Carbon Dioxide 32 mmol/L (22.0-30.0); Chol/HDL Ratio 4.5 (1-3.5); Cholesterol 167 mg/dl (140-200); Globulin 2.9 g/dL (1.3-3.2); Glucose 143 mg/dl (74-100); HDL Cholesterol 37 mg/dl (40-60); Total Protein,Serum 7.3 g/dl (6.3-8.2); Triglycerides 293 mg/dl (30-150); VLDL Cholesterol 59 mg/dL (0-40)
[2020-08-06 09:20] LABS: Direct LDL Cholesterol 91.49 mg/dL (100-129)
[2020-08-06 09:29] LABS: 25-OH Vitamin D, Total 39.4 ng/mL (30-100)
== END ==
PROVIDERS: Visit Provider Internal Medicine Adolescent Medicine
DX: E78.5 Hyperlipidemia, unspecified (principal); E55.9 Vitamin D deficiency, unspecified; E11.69 Type 2 diabetes mellitus with other specified complication; Z79.84 Long term (current) use of oral hypoglycemic drugs
CPT/HCPCS: 36415; 80053; 80061; 82306; 83036; 85025

== ENCOUNTER → 2020-08-25 06:43 | Outpatient (CLI) | payer MEDICARE, BC, SELFPAY ==
--- NOTE | 2020-08-25 | CA_ITS ---
APPROVED REPORT Exam: Pharmacologic Technologist: Sameera Catherine, Ht: 5 ft 8 in Wt: 250 lbs BSA: 2.25 m2 HR: 59 bpm BP: 126/79 mmHg Medical History Medications: Lisinopril,,,,, Aspirin,,,,, Metoprolol,,,,, Metformin,,,,, Flomax,,,,, MeLOXICAM,,,,, FeNOfibrate,,,,, BenzONATATE,,,,, DiTROPAN,,,,, AtorvaASTATIN,,,,, DOxycycline,,,,, BuPROPIn,,,,, Stress Test Details Test: LEXISCAN HR Resting HR: 79 bpm Max Heart Rate (APMHR): 150.544166 bpm Max HR Achieved: 91 bpm Target HR (85% APMHR): 127.304504 bpm % of APMHR: 60.67 Recovery HR: 78 bpm BP Resting BP: 126/79 mmHg Max BP: 156/85 mmHg Recovery BP: 143.0/83.0 mmHg ECG Resting ECG: NSR, low voltage QRS Clinical Exercise duration: 04:00 min Highest Stage Achieved: Stress ECG Conclusion Symptoms: SOA, Malaise, No CP. Arrhythmias/Ectopy: None ST-T Changes: No significant changes. Conclussion: Unremarkable Lexiscan stress. Myoview images reported separately. Electronically signed by : Rito Velasco, 08/25/2020 12:51:06
--- NOTE | 2020-08-25 07:11 | NM_ITS ---
APPROVED REPORT Exam: Nuclear Stress Test Indication: HTN, DM, HYPERLIPIDEMIA, TOB USE, C.P., SOB, FATIGUE Patient Location: Outpatient Stress Tech: Paris Gomez ID Tech:CELIO Roldan RT(R)(N) Ht: 5 ft 9 in Wt: 246 lbs Bra Size: 38C HR: 59 bpm BP: 126/79 mmHg BSA: 2.26 m2 BMI: 36.3 History: HTN, DM, HYPERLIPIDEMIA, TOB USE, C.P., SOB, FATIGUE Procedure: Patient received a 0.4 mg of intravenous Lexiscan, resting heart rate 59 bpm, resting blood pressure 126/79 mmHg, with Lexiscan maximum heart rate achived was 78 bpm which is Less than 85 % of the maximum predicted heart rate and blood pressure was 143/83 mmHg. With Lexiscan, patient denied any complaint of chest pain. Electrocardiogram Resting electrocardiogram showed sinus rhythm, with Lexiscan there is less than 1.[address] segment depression noted from the baseline EKG. The EKG portion of the Lexiscan is nondiagnostic. Cardiac Stress and Resting SPECT Images: Cardiac Stress and Resting SPECT images were obtained using technetium 99m Myoview 31.1 mCi stress and 10.20 mCi at rest. Gated SPECT for analysis of segmental wall motion and calculation of the ejection fraction also done. Prone images were also obtained. Cardiac stress and resting SPECT images show fixed defect involving the inferior posterior basal wall likely due to nontransmural myocardial scarring, computer derived ejection fraction is 66% with mild inferior wall hypokinesis. Right ventricle is normal size and contractility. Conclusion: 1. The EKG portion of the Lexiscan is nondiagnostic. 2. Scintigraphic evidence of nontransmural myocardial scarring involving the inferior and posterior basal wall, compared to ejection fraction is 66% with segmental wall motion abnormality described above, right ventricle is normal size and contractility. 3. Abnormal Lexiscan Myoview study. Electronically signed by : Rito Velasco, 08/25/2020 14:15:33
== END ==
PROVIDERS: PCP Internal Medicine Adolescent Medicine; Visit Provider Internal Medicine Adolescent Medicine
DX: I25.811 Atherosclerosis of native coronary artery of transplanted heart without angina pectoris (principal)
CPT/HCPCS: 78452; 93017; A9502; J2785

== ENCOUNTER → 2020-09-10 07:51 | Outpatient (CLI) | payer MEDICARE, BC, SELFPAY ==
[2020-09-10 08:09] LABS: Basophils # 0.1 K/mm3 (0-0.2); Basophils % 0.6 % (0.1-2.0); Eosinophils # 0.2 K/mm3 (0.0-0.4); Eosinophils % 1.9 % (0.1-12.0); Hemoglobin 15.5 g/dL (14.1-18.0); Lymphocytes # 3.5 K/mm3 (0.7-4.5); Mean Corpuscular HGB Conc 32.3 g/dL (31.8-35.4); Mean Corpuscular Hemoglobin 29.2 pg (27.0-31.2); Mean Corpuscular Volume 90.4 fl (80-94); Mean Platelet Volume 7.4 fl (7.4-10.4); Monocytes # 0.6 K/mm3 (0.1-1.0); Monocytes % 5.9 % (1.7-9.3); Neutrophils # 5.6 K/mm3 (1.8-7.8); Neutrophils % 56.6 % (37.0-80.0); Platelet Count 195 K/mm3 (142-424); Red Blood Count 5.31 M/mm3 (4.60-6.20); Red Cell Distribution Width 13.6 % (11.5-17.5); White Blood Count 9.9 K/mm3 (4.8-10.8)
[2020-09-10 09:03] LABS: Chloride 102 mmol/L (98-107); Sodium 138 mmol/L (136-145)
[2020-09-10 09:04] LABS: Potassium 5.1 mmoL/L (3.5-5.1)
[2020-09-10 09:06] LABS: Blood Urea Nitrogen 19 mg/dl (9-20); Estimated Glomerular Filt Rate 66 ml/min (>60); GFR (African American) 80 ML/MIN (>60)
[2020-09-10 09:07] LABS: Anion Gap 10.1 mEq/L (5-15); Calcium 9.2 mg/dl (8.4-10.2); Carbon Dioxide 31 mmol/L (22.0-30.0); Glucose 134 mg/dl (74-100)
== END ==
PROVIDERS: Visit Provider Urology
DX: E78.5 Hyperlipidemia, unspecified (principal); I10 Essential (primary) hypertension; J44.9 Chronic obstructive pulmonary disease, unspecified; R94.30 Abnormal result of cardiovascular function study, unspecified; Z82.49 Family history of ischemic heart disease and other diseases of the circulatory system; Z20.822 Contact with and (suspected) exposure to COVID-19
CPT/HCPCS: 36415; 80048; 85025; U0003

== ENCOUNTER 2020-09-12 09:34 | Day surgery (SDC) | payer MEDICARE, BC, SELFPAY ==
[2020-09-12] VITALS (13 sets, daily range): BP systolic 110–139; BP diastolic 60–75; PULSE 74–91; RESP 12–13; TEMP 36.6; O2SAT 90–96; BMI 36.6
--- NOTE | 2020-09-12 | IR_ITS ---
APPROVED REPORT Patient Location: Outpatient Enterprise Business Architect: CELIO Burk RT (R) PROCEDURES Left heart catheterization Left ventriculogram Selective coronary angiogram INDICATION High risk abnormal Myoview, Angina pectoris Informed consent was obtained prior to the procedure. COMPLICATIONS NONE Estimated Blood Loss: LESS THAN 10 ML TECHNIQUE One percent lidocaine used to anesthetize the right anterior aspect of the wrist. The right radial artery was accessed via the Seldinger technique. A 6 Romansh sheath was placed in the right radial artery. 2.5 mg of verapamil, 800 mcg of nitroglycerin, 1mg Lidocaine and 5000 U Heparin were given through the arterial sheath. The Poppa 1 catheter was also used to perform left heart catheterization, left ventriculogram and selective coronary angiogram. At the end of the procedure the sheath was removed good hemostasis was achieved using Traclet band, patient was transferred to the postop holding area in stable condition. ANGIOGRAPHIC RESULTS The left main artery Has a distal tubular smooth 30% stenosis which extends into the ostial LAD The left anterior descending artery Has a smooth 20% stenosis stemming from the left main artery followed by an additional 20 to 30% stenosis. The mid vessel has additional 20% plaque. The first diagonal artery is 2.25 mm in diameter and has an ostial proximal 60% smooth stenosis The circumflex artery Is a large dominant vessel with mild diffuse 10% luminal irregularities The right coronary artery Nondominant with 10% luminal irregularities The MARSH ventriculogram reveals Normal 65% The left ventricular end-diastolic pressure Less than 10 mmHg There is slow flow down the left coronary system consistent with endothelial dysfunction IMPRESSION Mild coronary disease as described above Slow flow down the coronary arteries consistent with endothelial dysfunction Normal ejection fraction Normal left ventricular end-diastolic pressure PLAN 1. Medical management for the coronary artery disease and endothelial dysfunction Electronically signed by : Jason Teran, 09/12/2020 11:15:40
--- NOTE | 2020-09-12 09:39 | CA_ITS ---
APPROVED REPORT EXAM: Comprehensive 2D, Doppler, and color-flow Echocardiogram Vehicle Calibration Engineer: ELIZABETH Rick, RVS Ht: 5 ft 9 in Wt: 248lbs BSA: 2.26 BP: 145/81 mmHg Indications: COPD, HX-ASD closure, ANDRADE, CP, smoker 2D Dimensions IVSd 1.08 cm LVEF (Visual) 68.10 % PWd 0.97 cm LVDd 5.01 cm LVDs 3.10 cm Aortic Root 3.72 cm Left Atrium 3.16 cm LVOT 2.02 cm (M/F) 1.5-2.5 M-Mode Dimensions LA Diam 3.45 cm (1.9-4.0) LVDd 4.76 cm (3.5-5.7) Ao Diam 3.79 cm (2.0-3.7) LVDs 2.93 cm (3.5-5.7) EF (Teich) 68.70% EPSs 0.47 cm FS 38.40% EDV (Teich) 105.40 mL TAPSE 2.06 (<1.7) ESV (Teich) 33.00 mL LV Diastology E Decel Time 263.00 (160-240 msec) E/A Ratio 0.86 MED E' 6.40 (< 7 cm/sec) MED A' 9.00 cm/s E'/MED E' Ratio 9.14 (>14) LAT E' 7.10 (<10 cm/sec) LAT A' 11.50 cm/s E/LAT E' Ratio 8.24 (>14) Aortic Valve LVOT Max 103.00 (70-110 cm/s) LVOT VTI 18.36 cm Mitral Valve MV E Max Arsh. 58.00 (40-130 cm/s) MV A Velocity 68.00 (40-130 cm/s) E/A Ratio 0.86 MV Decel. Time 263.00 (160-240 ms) MV PHT 77.00 ms Pulmonary Valve PV Peak Velocity 67.00 (50-150 cm/s) Tricuspid Valve TR P. Velocity 234.00 cm/s RAP Estimate 10.00 mmHg RVSP 31.90 mmHg Left Ventricle Left atrium is mildly enlarged, left ventricle is normal size, mild concentric left ventricular hypertrophy, visually estimated ejection fraction 55% with no regional wall motion abnormality, grade 1 diastolic dysfunction seen without tissue Doppler evidence of raise left atrial pressure. Right Ventricle Right atrium and right ventricle mildly enlarged with normal contractility. Atria Intra-atrial septum is intact, there is no flow across the interatrial septum. Aortic Valve Aortic valve is minimally thickened and fibrosed, there is no aortic stenosis or aortic insufficiency. Mitral Valve Mitral valve is grossly normal, there is trace mitral regurgitation. Tricuspid Valve Tricuspid grossly normal, there is trace tricuspid regurgitation, tricuspid regurgitation jet velocity is inadequate for calculation of the right ventricular systolic pressure. Pulmonic Valve Pulmonic valve is poorly visualized. Great Vessels Aortic root is normal size. Pericardium No significant pericardial effusion noted. Conclusion 1. Mild biatrial enlargement, normal left ventricular size, mild concentric left ventricular hypertrophy, visually estimated ejection fraction 55% with no regional wall motion abnormality, grade 1 diastolic dysfunction seen without tissue Doppler evidence of raise left atrial pressure. 2. Mildly enlarged right ventricle with normal contractility. 3. Trace mitral and tricuspid regurgitation. 4. No significant pericardial effusion noted. Electronically signed by : Rito Velasco, 09/12/2020 21:38:40
== END 2020-09-12 14:20 | disposition home or self-care (01) ==
LOC: CATHLAB 09:36
PROVIDERS: PCP Internal Medicine Adolescent Medicine; Visit Provider Internal Medicine
DX: E78.5 Hyperlipidemia, unspecified (principal); I10 Essential (primary) hypertension; I35.1 Nonrheumatic aortic (valve) insufficiency; R06.00 Dyspnea, unspecified; R94.30 Abnormal result of cardiovascular function study, unspecified; Z82.49 Family history of ischemic heart disease and other diseases of the circulatory system; I25.10 Atherosclerotic heart disease of native coronary artery without angina pectoris
CPT/HCPCS: 93306; 93458; 99152; C1725; C1769; J1644; Q9967

== ENCOUNTER → 2020-11-07 08:19 | Outpatient (CLI) | payer MEDICARE, BC, SELFPAY ==
[2020-11-07 08:59] LABS: Basophils # 0.3 K/mm3 (0-0.2); Eosinophils # 0.1 K/mm3 (0.0-0.4); Eosinophils % 1.4 % (0.1-12.0); Hematocrit 36.4 % (42.0-52.0); Hemoglobin 15.4 g/dL (14.1-18.0); Lymphocytes # 3.2 K/mm3 (0.7-4.5); Lymphocytes % 31.9 % (10-50); Mean Corpuscular Volume 75.7 fl (80-94); Mean Platelet Volume 17.2 fl (7.4-10.4); Monocytes # 0.7 K/mm3 (0.1-1.0); Monocytes % 6.6 % (1.7-9.3); Neutrophils # 5.8 K/mm3 (1.8-7.8); Neutrophils % 57.2 % (37.0-80.0); Platelet Count 132 K/mm3 (142-424); Red Blood Count 4.81 M/mm3 (4.60-6.20); White Blood Count 10.1 K/mm3 (4.8-10.8)
[2020-11-07 09:01] LABS: Mean Corpuscular HGB Conc 35.2 g/dL (31.8-35.4); Red Cell Distribution Width 17.2 % (11.5-17.5)
[2020-11-07 09:29] LABS: Chloride 99 mmol/L (98-107); Sodium 135 mmol/L (136-145)
[2020-11-07 09:30] LABS: Potassium 4.7 mmoL/L (3.5-5.1)
[2020-11-07 09:32] LABS: Alanine Aminotransferase 36 U/L (12-78); Alkaline Phosphatase 85 U/L (38-126); Anion Gap 12.7 mEq/L (5-15); Aspartate Amino Transferase 30 U/L (17-59); Bilirubin,Total 0.6 mg/dl (0.2-1.3); Blood Urea Nitrogen 18 mg/dl (9-20); Carbon Dioxide 28 mmol/L (22.0-30.0); Cholesterol 148 mg/dl (140-200); Estimated Glomerular Filt Rate 74 ml/min (>60); GFR (African American) 89 ML/MIN (>60); Triglycerides 281 mg/dl (30-150); VLDL Cholesterol 56 mg/dL (0-40)
[2020-11-07 09:33] LABS: Albumin Level 4.3 g/dl (3.5-5.0); Albumin/Globulin Ratio 1.7 (1.1-1.8); Calcium 8.8 mg/dl (8.4-10.2); Chol/HDL Ratio 4.6 (1-3.5); Globulin 2.5 g/dL (1.3-3.2); Glucose 132 mg/dl (74-100); HDL Cholesterol 32 mg/dl (40-60); Total Protein,Serum 6.8 g/dl (6.3-8.2)
[2020-11-07 09:44] LABS: Direct LDL Cholesterol 82.07 mg/dL (100-129)
[2020-11-07 10:04] LABS: Thyroid Stimulating Hormone 3.31 uIU/mL (0.465-4.68)
== END ==
PROVIDERS: Visit Provider Internal Medicine Adolescent Medicine
DX: E11.69 Type 2 diabetes mellitus with other specified complication (principal); E78.5 Hyperlipidemia, unspecified; E55.9 Vitamin D deficiency, unspecified; Z79.84 Long term (current) use of oral hypoglycemic drugs
CPT/HCPCS: 80053; 80061; 82306; 84443; 85025

== ENCOUNTER → 2020-11-09 10:26 | Outpatient (CLI) | payer MEDICARE, BC, SELFPAY ==
[2020-11-09 11:06] LABS: Hemoglobin A1C 6.9 % (4.0-6.0)
== END ==
PROVIDERS: Visit Provider Internal Medicine Adolescent Medicine
DX: E11.69 Type 2 diabetes mellitus with other specified complication (principal); Z79.84 Long term (current) use of oral hypoglycemic drugs
CPT/HCPCS: 36415; 83036

== ENCOUNTER → 2020-12-29 15:19 | Outpatient (CLI) | payer MEDICARE, BC, SELFPAY ==
--- NOTE | 2020-12-29 15:24 | CT_ITS ---
PROCEDURE: CT LUNG SCREENING CLINICAL INDICATION: H/O NICOTINE DEPENDENCE Current smoker 106 pack year smoking history No prior LDLS COMPARISON: CT CT CHEST W CON from 11/03/2019 TECHNIQUE: The exam was performed on a GE Light Speed [address] scanner using 2.90 mGy CTDI. A low dose helical CT CHEST was performed on a multi-detector scanner. All CT scans at the facility use one or more dose reduction, viz: automated exposure control, ma/kV adjustment per patient size (including targeted exams where dose is matched to indication, i.e. head), or iterative reconstruction technique. The LDCT was performed in a facility that meets the criteria for the screening program. Data regarding this exam was submitted to ACR which is an approved registry. The order for this exam indicates that it came as a result of a lung cancer screening counseling shard decision-making visit that included all the elements required of such a visit including smoking cessation. The radiologist interpreting this exam meets the CMS criteria for the LDCT lung cancer screening program. The exam is reported using the Lung-RADS classification scale and reported to the ACR registry. NOTE: This study was performed for the specific purposes of lung cancer screening and is not an alternative to diagnostic chest CT. RADIATION DOSE: CTDI vol(CT dose Index-volume) = 2.90mG DLP (Dose Length Product) = 108.64 mGcm FINDINGS: COPD with panlobular emphysema with scattered areas of scarring greatest in the lung apices. There is chronic volume loss in the left lower lobe with bronchial thickening and some consolidation. This has increased compared to the previous exam. 7 mm nodular opacity is present in the left lower lobe series 4, image 54 not readily apparent on the previous study. This nodule is near the area of atelectasis and could be secondary to post inflammatory changes. Cannot exclude early neoplastic process. Six-month follow-up suggested. No other nodules are apparent OTHER FINDINGS: . severe coronary artery calcification. There is an intracardiac device between the right and left atrium. IMPRESSION: Lung-RADS Category 3 Probably Benign regarding 7 mm nodule in the left lower lobe. Follow-up: [address] Chest without and with contrast. Dictated by: Elijah Carr MD 01/09/2021 08:20 Elijah Carr MD in [place] 01/09/2021 08:20
== END ==
PROVIDERS: PCP Internal Medicine Adolescent Medicine; Visit Provider Internal Medicine Adolescent Medicine
DX: Z87.891 Personal history of nicotine dependence (principal); Z12.2 Encounter for screening for malignant neoplasm of respiratory organs
CPT/HCPCS: 71271

== ENCOUNTER → 2021-03-02 09:50 | Outpatient (CLI) | payer MEDICARE, BC, SELFPAY ==
[2021-03-02 10:43] LABS: Basophils # 0.2 K/mm3 (0-0.2); Basophils % 1.7 % (0.1-2.0); Eosinophils # 0.1 K/mm3 (0.0-0.4); Eosinophils % 0.8 % (0.1-12.0); Hematocrit 51.8 % (42.0-52.0); Hemoglobin 16.9 g/dL (14.1-18.0); Lymphocytes # 3.2 K/mm3 (0.7-4.5); Lymphocytes % 35.1 % (10-50); Mean Corpuscular HGB Conc 32.6 g/dL (31.8-35.4); Mean Corpuscular Hemoglobin 30.1 pg (27.0-31.2); Mean Corpuscular Volume 92.4 fl (80-94); Mean Platelet Volume 7.9 fl (7.4-10.4); Monocytes # 0.5 K/mm3 (0.1-1.0); Monocytes % 5.7 % (1.7-9.3); Neutrophils # 5.1 K/mm3 (1.8-7.8); Neutrophils % 56.8 % (37.0-80.0); Platelet Count 247 K/mm3 (142-424); Red Cell Distribution Width 13.6 % (11.5-17.5)
[2021-03-02 11:03] LABS: Hemoglobin A1C 6.9 % (4.0-6.0)
[2021-03-02 11:19] LABS: Alanine Aminotransferase 28 U/L (12-78); Albumin Level 4.3 g/dl (3.5-5.0); Albumin/Globulin Ratio 1.5 (1.1-1.8); Alkaline Phosphatase 88 U/L (38-126); Aspartate Amino Transferase 29 U/L (17-59); Bilirubin,Total 0.7 mg/dl (0.2-1.3); Blood Urea Nitrogen 13 mg/dl (9-20); Calcium 9.3 mg/dl (8.4-10.2); Carbon Dioxide 30 mmol/L (22.0-30.0); Chloride 100 mmol/L (98-107); Chol/HDL Ratio 4.3 (1-3.5); Cholesterol 153 mg/dl (140-200); Estimated Glomerular Filt Rate 83 ml/min (>60); GFR (African American) 101 ML/MIN (>60); Globulin 2.8 g/dL (1.3-3.2); Glucose 117 mg/dl (74-100); HDL Cholesterol 36 mg/dl (40-60); Sodium 138 mmol/L (136-145); Total Protein,Serum 7.1 g/dl (6.3-8.2); Triglycerides 216 mg/dl (30-150); VLDL Cholesterol 43 mg/dL (0-40)
[2021-03-02 11:35] LABS: 25-OH Vitamin D, Total 58.4 ng/mL (30-100)
[2021-03-02 11:50] LABS: Prostate Specific Ag Screen 2.6 ng/ml (0.0-4.0)
== END ==
PROVIDERS: Visit Provider Internal Medicine Adolescent Medicine
DX: E11.69 Type 2 diabetes mellitus with other specified complication (principal); E78.5 Hyperlipidemia, unspecified; E55.9 Vitamin D deficiency, unspecified; N40.1 Benign prostatic hyperplasia with lower urinary tract symptoms; Z12.5 Encounter for screening for malignant neoplasm of prostate; Z79.84 Long term (current) use of oral hypoglycemic drugs
CPT/HCPCS: 36415; 80053; 80061; 82306; 83036; 85025; G0103

== ENCOUNTER → 2021-03-18 08:56 | Outpatient (CLI) | payer MEDICARE, BC, SELFPAY ==
[2021-03-18 10:10] LABS: Blood Urea Nitrogen 12 mg/dl (9-20); Estimated Glomerular Filt Rate 83 ml/min (>60); GFR (African American) 101 ML/MIN (>60)
== END ==
PROVIDERS: Visit Provider Internal Medicine Adolescent Medicine
DX: R91.1 Solitary pulmonary nodule (principal)
CPT/HCPCS: 36415; 82565; 84520

== ENCOUNTER → 2021-03-20 08:50 | Outpatient (CLI) | payer MEDICARE, BC, SELFPAY ==
--- NOTE | 2021-03-20 08:54 | CT_ITS ---
PROCEDURE: CT CHEST WO CON CLINICAL INDICATION: PULMONARY NODULE COMPARISON: CT CT LUNG SCREENING from 12/29/2020 TECHNIQUE: Axial images obtained with sagittal and coronal reformats. All CT scans at the facility use one or more dose reduction, viz: automated exposure control, ma/kV adjustment per patient size (including targeted exams where dose is matched to indication, i.e. head), or iterative reconstruction technique. FINDINGS: HEART AND MEDIASTINAL STRUCTURES: There is scattered small mediastinal nodes not significantly changed. Severe coronary artery calcifications are present. Status post atrial septal defect repair. 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 Bronchiectasis is present in the left lower lobe posteriorly in a region of parenchymal scarring. Previously noted opacity in the left lower lobe posterior laterally is once again noted not significantly changed and is felt to be related to an area of scarring and or atelectatic change. No new nodules apparent. BONY STRUCTURES: No acute bony abnormalities apparent. UPPER ABDOMEN: There is a hypodense nodule along the upper pole of the left kidney at 15 mm and along the posterior aspect of the left kidney at 24 mm. The latter areas incompletely imaged. These could be due to cyst. In addition however, there is a solid-appearing nodule in the upper pole left kidney at 13 mm. This could be related to hyperdense cyst or solid nodule. This areas traditionally difficult to evaluate by ultrasound therefore, nonemergent MRI of the kidneys without and with enhancement is suggested for further evaluation. ADDITIONAL FINDINGS: No other significant abnormalities. IMPRESSION: COPD with panlobular and paraseptal emphysema with scattered areas of scarring. There is chronic volume loss in the left lower lobe with bronchiectasis. The previously described left lower lobe opacity is not significantly changed and may be due to an area of scarring. No suspicious nodule apparent. Hyperdense 13 mm left renal nodule along the upper pole posterior laterally. This may be due to hyperdense cyst or solid lesion. Consider MRI without and with contrast for further evaluation. Dictated by: Elijah Carr MD 03/20/2021 14:27 Elijah Carr MD in [place] 03/20/2021 14:27
== END ==
PROVIDERS: PCP Internal Medicine Adolescent Medicine; Visit Provider Internal Medicine Adolescent Medicine
DX: R91.1 Solitary pulmonary nodule (principal)
CPT/HCPCS: 71250

== ENCOUNTER → 2021-06-06 07:33 | Outpatient (CLI) | payer MEDICARE, SELFPAY ==
[2021-06-06 07:58] LABS: Basophils # 0.1 K/mm3 (0-0.2); Basophils % 1.1 % (0.1-2.0); Eosinophils # 0.1 K/mm3 (0.0-0.4); Eosinophils % 1.2 % (0.1-12.0); Hematocrit 52.2 % (42.0-52.0); Hemoglobin 16.7 g/dL (14.1-18.0); Lymphocytes # 3.2 K/mm3 (0.7-4.5); Lymphocytes % 36.3 % (10-50); Mean Corpuscular HGB Conc 31.9 g/dL (31.8-35.4); Mean Corpuscular Hemoglobin 29.9 pg (27.0-31.2); Mean Corpuscular Volume 93.6 fl (80-94); Mean Platelet Volume 7.5 fl (7.4-10.4); Monocytes # 0.5 K/mm3 (0.1-1.0); Monocytes % 5.8 % (1.7-9.3); Neutrophils # 4.8 K/mm3 (1.8-7.8); Neutrophils % 55.7 % (37.0-80.0); Platelet Count 233 K/mm3 (142-424); Red Blood Count 5.58 M/mm3 (4.60-6.20); Red Cell Distribution Width 13.6 % (11.5-17.5); White Blood Count 8.7 K/mm3 (4.8-10.8)
[2021-06-06 09:24] LABS: Alanine Aminotransferase 29 U/L (12-78); Albumin Level 4.5 g/dl (3.5-5.0); Albumin/Globulin Ratio 1.8 (1.1-1.8); Alkaline Phosphatase 81 U/L (38-126); Anion Gap 10.7 mEq/L (5-15); Aspartate Amino Transferase 28 U/L (17-59); Bilirubin,Total 0.7 mg/dl (0.2-1.3); Blood Urea Nitrogen 13 mg/dl (9-20); Calcium 9.3 mg/dl (8.4-10.2); Carbon Dioxide 34 mmol/L (22.0-30.0); Chloride 96 mmol/L (98-107); Cholesterol 168 mg/dl (140-200); Estimated Glomerular Filt Rate 74 ml/min (>60); GFR (African American) 89 ML/MIN (>60); Globulin 2.5 g/dL (1.3-3.2); Glucose 113 mg/dl (74-100); HDL Cholesterol 42 mg/dl (40-60); Potassium 4.7 mmoL/L (3.5-5.1); Sodium 136 mmol/L (136-145); Triglycerides 261 mg/dl (30-150); VLDL Cholesterol 52 mg/dL (0-40)
[2021-06-06 09:34] LABS: Hemoglobin A1C 6.6 % (4.0-6.0)
[2021-06-06 09:35] LABS: Direct LDL Cholesterol 98.19 mg/dL (100-129)
[2021-06-06 09:40] LABS: 25-OH Vitamin D, Total 41.1 ng/mL (30-100)
== END ==
PROVIDERS: Visit Provider Internal Medicine Adolescent Medicine
DX: E11.69 Type 2 diabetes mellitus with other specified complication (principal); E78.5 Hyperlipidemia, unspecified; E55.9 Vitamin D deficiency, unspecified; Z79.84 Long term (current) use of oral hypoglycemic drugs
CPT/HCPCS: 36415; 80053; 80061; 82306; 83036; 85025

== ENCOUNTER → 2021-06-20 08:16 | Outpatient (POV) | payer MEDICARE, SELFPAY | PROVIDERS: Visit Provider Dermatology | DX: Z00.00 Encounter for general adult medical examination without abnormal findings (principal) ==

== ENCOUNTER → 2021-09-01 07:54 | Outpatient (CLI) | payer MEDICARE, SELFPAY ==
[2021-09-01 08:46] LABS: Basophils # 0.1 K/mm3 (0-0.2); Eosinophils # 0.1 K/mm3 (0.0-0.4); Eosinophils % 1.4 % (0.1-12.0); Hemoglobin 16.4 g/dL (14.1-18.0); Lymphocytes # 2.5 K/mm3 (0.7-4.5); Lymphocytes % 36.9 % (10-50); Mean Corpuscular HGB Conc 32.8 g/dL (31.8-35.4); Mean Corpuscular Hemoglobin 30.7 pg (27.0-31.2); Mean Corpuscular Volume 93.5 fl (80-94); Mean Platelet Volume 7.8 fl (7.4-10.4); Monocytes # 0.5 K/mm3 (0.1-1.0); Monocytes % 7.3 % (1.7-9.3); Neutrophils # 3.7 K/mm3 (1.8-7.8); Neutrophils % 53.5 % (37.0-80.0); Platelet Count 245 K/mm3 (142-424); Red Blood Count 5.34 M/mm3 (4.60-6.20); Red Cell Distribution Width 13.9 % (11.5-17.5); White Blood Count 6.9 K/mm3 (4.8-10.8)
[2021-09-01 09:43] LABS: Chloride 100 mmol/L (98-107); Potassium 4.8 mmoL/L (3.5-5.1); Sodium 137 mmol/L (136-145)
[2021-09-01 09:46] LABS: Alanine Aminotransferase 26 U/L (12-78); Albumin Level 4.2 g/dl (3.5-5.0); Albumin/Globulin Ratio 1.7 (1.1-1.8); Alkaline Phosphatase 92 U/L (38-126); Anion Gap 12.8 mEq/L (5-15); Aspartate Amino Transferase 28 U/L (17-59); Bilirubin,Total 0.7 mg/dl (0.2-1.3); Blood Urea Nitrogen 18 mg/dl (9-20); Carbon Dioxide 29 mmol/L (22.0-30.0); Cholesterol 144 mg/dl (140-200); Estimated Glomerular Filt Rate 74 ml/min (>60); GFR (African American) 89 ML/MIN (>60); Globulin 2.5 g/dL (1.3-3.2); Total Protein,Serum 6.7 g/dl (6.3-8.2); Triglycerides 136 mg/dl (30-150); VLDL Cholesterol 27 mg/dL (0-40)
[2021-09-01 09:47] LABS: Calcium 8.5 mg/dl (8.4-10.2); Chol/HDL Ratio 4.4 (1-3.5); Glucose 114 mg/dl (74-100); HDL Cholesterol 33 mg/dl (40-60)
[2021-09-01 09:57] LABS: Direct LDL Cholesterol 80.94 mg/dL (100-129)
[2021-09-01 10:04] LABS: 25-OH Vitamin D, Total 32.7 ng/mL (30-100)
== END ==
PROVIDERS: Visit Provider Internal Medicine Adolescent Medicine
DX: E11.69 Type 2 diabetes mellitus with other specified complication (principal); E78.5 Hyperlipidemia, unspecified; E55.9 Vitamin D deficiency, unspecified; Z79.84 Long term (current) use of oral hypoglycemic drugs
CPT/HCPCS: 36415; 80053; 80061; 82306; 83036; 85025

== ENCOUNTER → 2021-10-25 07:21 | Outpatient (CLI) | payer MEDICARE, SELFPAY ==
[2021-10-25 08:29] LABS: Blood Urea Nitrogen 18 mg/dl (9-20); Estimated Glomerular Filt Rate 66 ml/min (>60); GFR (African American) 80 ML/MIN (>60)
== END ==
PROVIDERS: Visit Provider Urology
DX: N28.89 Other specified disorders of kidney and ureter (principal)
CPT/HCPCS: 36415; 82565; 84520

== ENCOUNTER → 2021-10-26 08:00 | Outpatient (CLI) | payer MEDICARE, SELFPAY | PROVIDERS: PCP Internal Medicine Adolescent Medicine; Visit Provider Urology | DX: N28.89 Other specified disorders of kidney and ureter (principal) ==

== ENCOUNTER → 2021-11-02 09:04 | Outpatient (CLI) | payer MEDICARE, SELFPAY ==
--- NOTE | 2021-11-02 09:08 | MR_ITS ---
FINAL REPORT CLINICAL HISTORY: RENAL MASS. RENAL MASS. Abnormal CT scan at [place]. 20ml Prohance given. COMPARISON: Outside CT of the abdomen and pelvis dated 09/26/2021 FINDINGS: Multiplanar MR imaging of the abdomen was performed without and with contrast. Images of the liver reveal no evidence of mass. There is no evidence of biliary ductal dilatation. The gallbladder has an unremarkable appearance. There is a 22 mm mass in the left kidney with imaging characteristics consistent with a hemorrhagic cyst. This shows no evidence of contrast enhancement. There are several less than 1 cm right renal masses consistent with simple cyst. There are 3 left renal masses measuring up to 24 mm consistent with simple cysts. No abnormal contrast enhancement is seen on the postcontrast images. IMPRESSION: Multiple bilateral simple cysts. 22 mm left renal hemorrhagic cyst. Reviewed, Interpreted and Dictated by Grey Holguin III, MD Transcribed by Teresa Youssef Authenticated and [facility]
--- NOTE | 2021-11-02 09:08 | MR_ITS ---
FINAL REPORT CLINICAL HISTORY: RENAL MASS. Abnormal CT scan at [place]. 20ml Prohance given. COMPARISON: Outside CT abdomen and pelvis dated 09/26/2021 FINDINGS: MRI PELVIS WITHOUT AND WITH CONTRAST Multiplanar MR imaging of the pelvis was performed without and with contrast. There is sigmoid diverticulosis with no evidence of diverticulitis. The right testicle is high riding. 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 No other mass or adenopathy is identified. No abnormal fluid collection is seen. No abnormal contrast enhancement is seen on the postcontrast images. IMPRESSION: No evidence of mass and no abnormal contrast enhancement. Reviewed, Interpreted and Dictated by Grey Holguin III, MD Transcribed by Teresa Youssef Authenticated and [facility]
== END ==
PROVIDERS: PCP Internal Medicine Adolescent Medicine; Visit Provider Urology
DX: N28.89 Other specified disorders of kidney and ureter (principal)
CPT/HCPCS: 72197; 74183; A9576

== ENCOUNTER → 2021-12-05 07:16 | Outpatient (CLI) | payer MEDICARE, SELFPAY ==
[2021-12-05 08:14] LABS: Basophils # 0.1 K/mm3 (0-0.2); Basophils % 0.6 % (0.1-2.0); Eosinophils # 0.1 K/mm3 (0.0-0.4); Eosinophils % 1.2 % (0.1-12.0); Hematocrit 45.6 % (42.0-52.0); Hemoglobin 15.8 g/dL (14.1-18.0); Lymphocytes # 2.8 K/mm3 (0.7-4.5); Mean Corpuscular HGB Conc 34.5 g/dL (31.8-35.4); Mean Corpuscular Hemoglobin 30.5 pg (27.0-31.2); Mean Corpuscular Volume 88.2 fl (80-94); Monocytes # 0.6 K/mm3 (0.1-1.0); Monocytes % 6.9 % (1.7-9.3); Neutrophils # 4.5 K/mm3 (1.8-7.8); Neutrophils % 56.2 % (37.0-80.0); Platelet Count 200 K/mm3 (142-424); Red Blood Count 5.17 M/mm3 (4.60-6.20); Red Cell Distribution Width 13.5 % (11.5-17.5)
[2021-12-05 08:52] LABS: Alanine Aminotransferase 31 U/L (12-78); Albumin Level 3.9 g/dl (3.5-5.0); Albumin/Globulin Ratio 1.5 (1.1-1.8); Alkaline Phosphatase 83 U/L (38-126); Anion Gap 11.6 mEq/L (5-15); Aspartate Amino Transferase 29 U/L (17-59); Bilirubin,Total 0.3 mg/dl (0.2-1.3); Blood Urea Nitrogen 14 mg/dl (9-20); Calcium 8.8 mg/dl (8.4-10.2); Carbon Dioxide 29 mmol/L (22.0-30.0); Chloride 101 mmol/L (98-107); Chol/HDL Ratio 4.7 (1-3.5); Cholesterol 149 mg/dl (140-200); Estimated Glomerular Filt Rate 83 ml/min (>60); GFR (African American) 101 ML/MIN (>60); Globulin 2.6 g/dL (1.3-3.2); Glucose 133 mg/dl (74-100); HDL Cholesterol 32 mg/dl (40-60); Potassium 4.6 mmoL/L (3.5-5.1); Sodium 137 mmol/L (136-145); Total Protein,Serum 6.5 g/dl (6.3-8.2); Triglycerides 280 mg/dl (30-150); VLDL Cholesterol 56 mg/dL (0-40)
[2021-12-05 09:03] LABS: Direct LDL Cholesterol 77.61 mg/dL (100-129)
[2021-12-05 09:08] LABS: 25-OH Vitamin D, Total 36.3 ng/mL (30-100)
[2021-12-05 09:23] LABS: Thyroid Stimulating Hormone 3.29 uIU/mL (0.465-4.68)
== END ==
PROVIDERS: PCP Internal Medicine Adolescent Medicine; Visit Provider Internal Medicine Adolescent Medicine
DX: E11.69 Type 2 diabetes mellitus with other specified complication (principal); E78.5 Hyperlipidemia, unspecified; E55.9 Vitamin D deficiency, unspecified; Z79.84 Long term (current) use of oral hypoglycemic drugs
CPT/HCPCS: 36415; 80053; 80061; 82306; 84443; 85025

== ENCOUNTER → 2022-03-03 09:50 | Outpatient (CLI) | payer MEDICARE, SELFPAY ==
[2022-03-03 11:29] LABS: Chloride 97 mmol/L (98-107); Potassium 5.3 mmoL/L (3.5-5.1); Sodium 138 mmol/L (136-145)
[2022-03-03 11:32] LABS: Alanine Aminotransferase 21 U/L (12-78); Albumin Level 4.3 g/dl (3.5-5.0); Albumin/Globulin Ratio 1.5 (1.1-1.8); Alkaline Phosphatase 101 U/L (38-126); Anion Gap 15.3 mEq/L (5-15); Aspartate Amino Transferase 28 U/L (17-59); Bilirubin,Total 0.2 mg/dl (0.2-1.3); Blood Urea Nitrogen 16 mg/dl (9-20); Calcium 8.8 mg/dl (8.4-10.2); Carbon Dioxide 31 mmol/L (22.0-30.0); Estimated Glomerular Filt Rate 73 ml/min (>60); GFR (African American) 89 ML/MIN (>60); Globulin 2.9 g/dL (1.3-3.2); Glucose 116 mg/dl (74-100); Total Protein,Serum 7.2 g/dl (6.3-8.2)
== END ==
PROVIDERS: PCP Internal Medicine Adolescent Medicine; Visit Provider Ophthalmology
DX: H02.423 Myogenic ptosis of bilateral eyelids (principal)
CPT/HCPCS: 36415; 80053

== ENCOUNTER → 2022-03-23 10:12 | Outpatient (CLI) | payer MEDICARE, SELFPAY ==
--- NOTE | 2022-03-23 10:18 | XR_ITS ---
FINAL REPORT CLINICAL HISTORY: HYPOXIA COMPARISON: 03/18/2017 FINDINGS: TWO-VIEW CHEST The heart size is normal. The mediastinum is normal. The lungs are hyperinflated consistent with COPD. There is pulmonary vascular congestion. There are bibasilar opacities, may represent atelectasis or pneumonia. There are moderate degenerative changes of the thoracic spine. There is no pneumothorax. IMPRESSION: Bibasilar opacities, may represent atelectasis or pneumonia. Reviewed, Interpreted and Dictated by Grey Holguin III, MD Transcribed by Yasmin Coyne Authenticated and [facility]
[2022-03-23 10:51] LABS: ABG Base Excess 0.4 mmol/L (-2.4-2.3); ABG HCO3 25.5 mmhg (22.0-26.0); ABG Oxygen Saturation 92 % (90-100); ABG PCO2 44.1 mmhg (35.0-45.0); ABG PH 7.38 mmol/L (7.35-7.45); ABG PO2 62.8 mmhg (80-100); ABG TCO2 26.9 mmhg (23-27); Allen's Test Acceptable; Oxygen 21 %; Source Right Brachial
== END ==
PROVIDERS: PCP Internal Medicine Adolescent Medicine; Visit Provider Internal Medicine Adolescent Medicine
DX: R09.02 Hypoxemia (principal); R79.81 Abnormal blood-gas level
CPT/HCPCS: 71046; 82803; 94762

== ENCOUNTER → 2022-06-21 13:15 | Outpatient (CLI) | payer MEDICARE, SELFPAY ==
--- NOTE | 2022-06-21 13:21 | XR_ITS ---
FINAL REPORT CLINICAL HISTORY: RIGHT FLANK PAIN FINDINGS: A single supine view of the abdomen was obtained. There is a large amount of stool in the colon, consistent with constipation. Otherwise, the bowel gas pattern is unremarkable. Vascular calcifications are noted. Osseous structures are within normal limits. IMPRESSION: Large amount of stool in the colon consistent with constipation. Reviewed, Interpreted and Dictated by Domitila Johnson MD Transcribed by Teresa Youssef Authenticated and [facility]
== END ==
PROVIDERS: PCP Internal Medicine Adolescent Medicine; Visit Provider Nurse Practitioner Family
DX: R10.9 Unspecified abdominal pain (principal)
CPT/HCPCS: 74018

== ENCOUNTER → 2022-07-02 14:53 | Outpatient (CLI) | payer MEDICARE, SELFPAY ==
--- NOTE | 2022-07-02 14:56 | CT_ITS ---
FINAL REPORT TECHNIQUE: Axial CT images were performed from the lung bases through the pubic symphysis. Coronal reformats were submitted and reviewed. This study was performed with techniques to keep radiation doses as low as reasonably achievable (ALARA). Individualized dose reduction techniques using automated exposure control or adjustment of mA and/or kV according to the patient's size were employed. CLINICAL HISTORY: LOWER ABDOMINAL PAIN COMPARISON: CT chest from March 2021 FINDINGS: Abdomen: There is scarring in the lung bases. There is left lower lobe bronchiectasis with areas of presumed atelectasis or scarring that has progressed since the prior exam. There is decreased attenuation in the right hepatic lobe consistent with localized fatty infiltration. The spleen and pancreas are unremarkable. There are no adrenal masses. There are several left renal masses 1 of which measures 23 mm and was on the prior exam likely representing a hyperdense cyst. There is no nephrolithiasis. There is no hydronephrosis. There is a moderate amount of retained stool. There is descending and sigmoid colon diverticulosis. There is a small umbilical hernia containing fat. Pelvis: The appendix is unremarkable. There are no distal ureteral stones. The urinary bladder is unremarkable. There is fusion of the SI joints. There is a large calcification in the right common femoral artery causing moderate stenosis. IMPRESSION: Several left renal masses including 1 likely representing a hyperdense cyst. Diverticulosis without evidence of diverticulitis. Large calcification in the right common femoral artery causing moderate stenosis. Reviewed, Interpreted and Dictated by Grey Holguin III, MD Transcribed by Ty Mancilla Authenticated and [facility]
== END ==
PROVIDERS: PCP Internal Medicine Adolescent Medicine; Visit Provider Nurse Practitioner Family
DX: R10.30 Lower abdominal pain, unspecified (principal)
CPT/HCPCS: 74176

== ENCOUNTER → 2022-07-19 12:51 | Outpatient (CLI) | payer MEDICARE, SELFPAY ==
--- NOTE | 2022-07-19 | US_ITS ---
FINAL REPORT CLINICAL HISTORY: claudication, DM, htn, smoker, Resting pain in Left leg FINDINGS: COMPLETE ANKLE/BRACHIAL INDICES BILATERAL Complete ankle brachial indices was obtained. The right COLLEEN is 1.1. The left COLLEEN is 1.1. IMPRESSION: ABIs are within normal limits bilaterally. Reviewed, Interpreted and Dictated by Domitila Johnson MD Transcribed by Yasmin Coyne Authenticated and [facility]
== END ==
LOC: RT 12:51
PROVIDERS: PCP Internal Medicine Adolescent Medicine; Visit Provider Internal Medicine Adolescent Medicine
DX: I73.9 Peripheral vascular disease, unspecified (principal); R10.9 Unspecified abdominal pain; R10.30 Lower abdominal pain, unspecified
CPT/HCPCS: 93923

== ENCOUNTER → 2022-10-13 08:31 | Outpatient (CLI) | payer MEDICARE, SELFPAY ==
[2022-10-13 10:21] LABS: Alanine Aminotransferase 45 U/L (12-78); Albumin Level 4.1 g/dl (3.5-5.0); Albumin/Globulin Ratio 1.6 (1.1-1.8); Alkaline Phosphatase 96 U/L (38-126); Anion Gap 17.7 mEq/L (5-15); Aspartate Amino Transferase 36 U/L (17-59); Bilirubin,Total 0.6 mg/dl (0.2-1.3); Blood Urea Nitrogen 17 mg/dl (9-20); Calcium 8.9 mg/dl (8.4-10.2); Carbon Dioxide 29 mmol/L (22.0-30.0); Chloride 96 mmol/L (98-107); Estimated Glomerular Filt Rate 66 ml/min (>60); GFR (African American) 80 ML/MIN (>60); Globulin 2.5 g/dL (1.3-3.2); Glucose 162 mg/dl (74-100); Potassium 4.7 mmoL/L (3.5-5.1); Sodium 138 mmol/L (136-145); Total Protein,Serum 6.6 g/dl (6.3-8.2)
[2022-10-13 11:04] LABS: Hemoglobin A1C 8.7 % (4.0-6.0)
== END ==
PROVIDERS: PCP Internal Medicine Adolescent Medicine; Visit Provider Internal Medicine Adolescent Medicine
DX: E78.5 Hyperlipidemia, unspecified (principal); E11.69 Type 2 diabetes mellitus with other specified complication; Z79.84 Long term (current) use of oral hypoglycemic drugs
CPT/HCPCS: 36415; 80053; 83036

== ENCOUNTER → 2023-02-08 09:18 | Outpatient (CLI) | payer MEDICARE, SELFPAY ==
[2023-02-08 10:06] LABS: Eosinophils # 0.1 K/mm3 (0.0-0.4); Mean Corpuscular Volume 92.7 fl (80-94)
[2023-02-08 10:10] LABS: Basophils # 0.1 K/mm3 (0-0.2); Basophils % 0.6 % (0.1-2.0); Hematocrit 55.7 % (42.0-52.0); Hemoglobin 17.5 g/dL (14.1-18.0); Lymphocytes # 2.9 K/mm3 (0.7-4.5); Lymphocytes % 35.9 % (10-50); Mean Corpuscular HGB Conc 31.4 g/dL (31.8-35.4); Mean Corpuscular Hemoglobin 29.1 pg (27.0-31.2); Mean Platelet Volume 6.7 fl (7.4-10.4); Monocytes # 0.4 K/mm3 (0.1-1.0); Neutrophils # 4.6 K/mm3 (1.8-7.8); Neutrophils % 57.4 % (37.0-80.0); Platelet Count 186 K/mm3 (142-424); Red Cell Distribution Width 14.5 % (11.5-17.5); White Blood Count 8.1 K/mm3 (4.8-10.8)
[2023-02-08 10:26] LABS: Hemoglobin A1C 7.3 % (4.0-6.0)
[2023-02-08 11:27] LABS: Alanine Aminotransferase 56 U/L (12-78); Albumin Level 4.1 g/dl (3.5-5.0); Albumin/Globulin Ratio 1.4 (1.1-1.8); Alkaline Phosphatase 77 U/L (38-126); Anion Gap 12.9 mEq/L (5-15); Aspartate Amino Transferase 41 U/L (17-59); Bilirubin,Total 0.5 mg/dl (0.2-1.3); Blood Urea Nitrogen 18 mg/dl (9-20); Carbon Dioxide 30 mmol/L (22.0-30.0); Chloride 100 mmol/L (98-107); Chol/HDL Ratio 5.6 (1-3.5); Cholesterol 162 mg/dl (140-200); Estimated Glomerular Filt Rate 59 ml/min (>60); GFR (African American) 72 ML/MIN (>60); Globulin 2.9 g/dL (1.3-3.2); Glucose 133 mg/dl (74-100); HDL Cholesterol 29 mg/dl (40-60); Potassium 4.9 mmoL/L (3.5-5.1); Sodium 138 mmol/L (136-145); Triglycerides 379 mg/dl (30-150); VLDL Cholesterol 76 mg/dL (0-40)
[2023-02-08 11:37] LABS: Direct LDL Cholesterol 81.69 mg/dL (100-129)
[2023-02-08 11:43] LABS: 25-OH Vitamin D, Total 31.9 ng/mL (30-100)
== END ==
PROVIDERS: PCP Internal Medicine Adolescent Medicine; Visit Provider Internal Medicine Adolescent Medicine
DX: E78.5 Hyperlipidemia, unspecified (principal); E11.69 Type 2 diabetes mellitus with other specified complication; E55.9 Vitamin D deficiency, unspecified
CPT/HCPCS: 36415; 80053; 80061; 82306; 83036; 85025

== ENCOUNTER 2023-08-12 11:44 | Outpatient (CLI) | payer MEDICARE, SELFPAY ==
--- NOTE | 2023-08-12 11:49 | XR_ITS ---
FINAL REPORT CLINICAL HISTORY: BRONCHOPNEUMONIA cough x 1 week former smoker of 50 yrs COMPARISON: 03/23/2022 FINDINGS: Two views of the chest were obtained. Large lung volumes are present consistent with changes of chronic obstructive pulmonary disease. There are postoperative changes as well from an ASD repair. The heart size and pulmonary vascularity are within normal limits. The mediastinum is normal. There is a left base opacity present, stable since the prior exam, favor scarring. There is no pneumothorax. The bony thorax is intact. IMPRESSION: Left base opacity, stable since the prior exam, favor scar. Graph changes of chronic obstructive pulmonary disease. Reviewed, Interpreted and Dictated by Grey Holguin III, MD Transcribed by Miriam Royal Authenticated and . [facility]
== END 2023-08-12 23:59 ==
LOC: RAD 11:45
PROVIDERS: PCP Internal Medicine Adolescent Medicine; Visit Provider Internal Medicine Adolescent Medicine
DX: J18.0 Bronchopneumonia, unspecified organism (principal)
CPT/HCPCS: 71046

== ENCOUNTER 2023-09-06 12:45 | Outpatient (CLI) | payer MEDICARE, SELFPAY ==
--- NOTE | 2023-09-06 12:51 | US_ITS ---
FINAL REPORT CLINICAL HISTORY: LYMPHADENOPATHY COMPARISON: None FINDINGS: ULTRASOUND SOFT TISSUES NECK: Examination of the cervical soft tissues was performed to evaluate the submandibular glands and possible adenopathy. There are several small cervical nodes that were seen on this examination, there are bilateral cervical nodes present, the largest of which measures 2.6 cm in length. These nodes are nonspecific, and appear likely reactive. There is a 3 mm possible right parotid cyst, and a questionable 4 mm nodule or node in the right parotid gland. IMPRESSION: A few small nonspecific cervical nodes are noted, likely reactive. Right parotid 3 mm possible cyst, and questionable 4 mm nodule or intraparotid lymph node seen. The remainder of the salivary glands are unremarkable in appearance. Reviewed, Interpreted and Dictated by Grey Holguin III, MD Transcribed by Miriam Royal Authenticated and [facility]
== END 2023-09-06 23:59 ==
PROVIDERS: PCP Internal Medicine Adolescent Medicine; Visit Provider Physician Assistant
DX: R59.1 Generalized enlarged lymph nodes (principal)
CPT/HCPCS: 76536; 87070; 87205

== ENCOUNTER 2023-11-15 08:24 | Outpatient (CLI) | payer MEDICARE, SELFPAY ==
[2023-11-15 09:31] LABS: Basophils # 0.1 K/mm3 (0-0.2); Basophils % 1.1 % (0.1-2.0); Eosinophils # 0.1 K/mm3 (0.0-0.4); Hematocrit 50.7 % (42.0-52.0); Hemoglobin 16.2 g/dL (14.1-18.0); Lymphocytes # 3.9 K/mm3 (0.7-4.5); Lymphocytes % 43.1 % (10-50); Mean Corpuscular HGB Conc 31.9 g/dL (31.8-35.4); Mean Corpuscular Hemoglobin 30.5 pg (27.0-31.2); Mean Corpuscular Volume 95.4 fl (80-94); Mean Platelet Volume 7.6 fl (7.4-10.4); Monocytes # 0.5 K/mm3 (0.1-1.0); Monocytes % 5.8 % (1.7-9.3); Neutrophils # 4.4 K/mm3 (1.8-7.8); Platelet Count 201 K/mm3 (142-424); Red Blood Count 5.31 M/mm3 (4.60-6.20); Red Cell Distribution Width 14.2 % (11.5-17.5)
[2023-11-15 10:08] LABS: Alanine Aminotransferase 53 U/L (12-78); Albumin Level 4.1 g/dl (3.5-5.0); Albumin/Globulin Ratio 1.5 (1.1-1.8); Alkaline Phosphatase 75 U/L (38-126); Anion Gap 14.6 mEq/L (5-15); Aspartate Amino Transferase 43 U/L (17-59); Bilirubin,Total 0.6 mg/dl (0.2-1.3); Blood Urea Nitrogen 13 mg/dl (9-20); Calcium 9.2 mg/dl (8.4-10.2); Carbon Dioxide 30 mmol/L (22.0-30.0); Chloride 98 mmol/L (98-107); Chol/HDL Ratio 5.7 (1-3.5); Cholesterol 195 mg/dl (140-200); Estimated Glomerular Filt Rate 73 ml/min (>60); GFR (African American) 89 ML/MIN (>60); Globulin 2.8 g/dL (1.3-3.2); Glucose 176 mg/dl (74-100); HDL Cholesterol 34 mg/dl (40-60); Potassium 4.6 mmoL/L (3.5-5.1); Sodium 138 mmol/L (136-145); Total Protein,Serum 6.9 g/dl (6.3-8.2); Triglycerides 366 mg/dl (30-150); VLDL Cholesterol 73 mg/dL (0-40)
[2023-11-15 10:19] LABS: Direct LDL Cholesterol 106.74 mg/dL (100-129)
[2023-11-15 10:25] LABS: 25-OH Vitamin D, Total 38.6 ng/mL (30-100)
== END 2023-11-15 23:59 | disposition home or self-care (01) ==
LOC: LAB 08:25
PROVIDERS: PCP Internal Medicine Adolescent Medicine; Visit Provider Internal Medicine Adolescent Medicine
DX: E55.9 Vitamin D deficiency, unspecified (principal); E11.69 Type 2 diabetes mellitus with other specified complication; Z79.84 Long term (current) use of oral hypoglycemic drugs; Z68.36 Body mass index [BMI] 36.0-36.9, adult
CPT/HCPCS: 36415; 80053; 80061; 82306; 83036; 85025

== ENCOUNTER 2024-04-03 07:46 | Outpatient (CLI) | payer MEDICARE, SELFPAY ==
[2024-04-03 07:56] LABS: Microscopic, Urine URINE MICROSCOPIC (MICROSCOPIC)
[2024-04-03 08:36] LABS: Hemoglobin 15.5 g/dL (14.1-18.0); Mean Corpuscular HGB Conc 33.7 g/dL (31.8-35.4); Mean Corpuscular Hemoglobin 30.6 pg (27.0-31.2); Mean Corpuscular Volume 90.7 fl (80-94); Platelet Count 202 K/mm3 (142-424); Red Blood Count 5.08 M/mm3 (4.60-6.20); Red Cell Distribution Width 13.8 % (11.5-17.5); White Blood Count 9.4 K/mm3 (4.8-10.8)
[2024-04-03 08:52] LABS: Appearance,Urine CLEAR (Clear); Bilirubin,Urine Negative (Negative); Blood, Urine Negative (Negative); Color,Urine YELLOW (Yellow); Glucose,Urine (UA) Negative (Negative); Ketones,Urine Negative (Negative); Leukocyte Esterase,Urine TRACE (Negative); Nitrate,Urine Negative (Negative); Protein,Urine 2+ (Negative); Specific Gravity, Urine 1.025 (1.005-1.030); Urobilinogen,Urine 0.2 EU/dl (0.2)
[2024-04-03 09:05] LABS: Albumin Level 4.2 g/dl (3.5-5.0); Anion Gap 12.8 mEq/L (5-15); Blood Urea Nitrogen 27 mg/dl (9-20); Calcium 9.3 mg/dl (8.4-10.2); Carbon Dioxide 27 mmol/L (22.0-30.0); Chloride 104 mmol/L (98-107); Estimated Glomerular Filt Rate 29 ml/min (>60); GFR (African American) 36 ML/MIN (>60); Glucose 152 mg/dl (74-100); Phosphorous 4.7 mg/dl (2.5-4.5); Potassium 4.8 mmoL/L (3.5-5.1); Sodium 139 mmol/L (136-145)
[2024-04-03 09:06] LABS: Creatinine,Urine Random 85 mg/dL (Not Estab.)
[2024-04-03 09:15] LABS: Intact Parathyroid Hormone 77.5 pg/mL (7.5-53.5)
[2024-04-03 09:43] LABS: WBC,Urine Occasional #/hpf (0-3)
== END 2024-04-03 23:59 | disposition home or self-care (01) ==
LOC: LAB 07:47
PROVIDERS: PCP Internal Medicine Adolescent Medicine; Visit Provider Student in an Organized Health Care Education/Training Program
DX: N17.9 Acute kidney failure, unspecified (principal); E55.9 Vitamin D deficiency, unspecified
CPT/HCPCS: 36415; 80069; 81001; 82306; 82570; 83970; 84156; 85027

== ENCOUNTER 2024-04-23 14:44 | Outpatient (CLI) | payer MEDICARE, SELFPAY ==
--- NOTE | 2024-04-23 | CA_ITS ---
APPROVED REPORT EXAM: Comprehensive 2D, Doppler, and color-flow Echocardiogram [employer] Consultant: ELIZABETH Rick, RVS Ht: 5 ft 9 in Wt: 248lbs BSA: 2.26 BP: 142/72 mmHg Indications: COPD, SOA, Hx-ASD closure-PFO, Smoker Echo Enhancing Agent Comments: Extremely limited windows: due to body habitus/lung impedence 2D Dimensions IVSd 0.93 cm M: 0.6-1.2 LVEF (Visual) 49.80 % PWd 1.28 cm M: 0.6 - 1.2 LA Volume 64.80 mL LVDd 3.84 cm M: 4.2 - 5.9 LA Volume Index 28.55 mL/m2 (M/F) 16-34 LVDs 2.89 cm M: 2.5 - 4.0 EF AP4 47.00 % Left Atrium 2.92 cm M: 3.0 - 4.0 GL Strain -12.0 % M-Mode Dimensions LA Diam 3.39 cm (1.9-4.0) EPSs 0.57 cm TAPSE 2.02 (<1.7) LV Diastology E Decel Time 187 (160-240 msec) E/A Ratio 0.72 MED A' 9.20 cm/s LAT A' 10.60 cm/s Aortic Valve CASSIE Index 1.11 cm2/m2 AoV Peak Arsh. 134.0 (50-130 cm/s) AO Peak GR. 7.20 mmHg AO Mean GR. 3.70 (<5 mmHg) AO VTI 21.6 (18-25 cm) CASSIE (VTI) 2.57 (2.5-4.5 cm2) Mitral Valve MV A Velocity 82.0 (40-130 cm/s) E/A Ratio 0.72 Pulmonary Valve PV Peak Velocity 90.0 (50-150 cm/s) Tricuspid Valve TR P. Velocity 175.00 cm/s RAP Estimate 10.00 mmHg RVSP 22.30 mmHg Left Ventricle The left ventricle is normal size. The left ventricular systolic function is normal. The left ventricular ejection fraction is within the normal range. There is increased LV wall thickness. There is normal LV segmental wall motion. Transmitral Doppler flow pattern suggests impaired LV relaxation. LVEF is 55%. Right Ventricle Right ventricle is mildly dilated. The right ventricular systolic function is normal. Atria The left atrium size is normal. The right atrium size is normal. s/p PFO closure. Color Doppler demonstrates no evidence of residual interatrial shunt. Agitated saline administration demonstrates no evidence of interatrial shunt. Aortic Valve The aortic valve is mildly thickened. There is no aortic valvular stenosis. No aortic regurgitation is present. Mitral Valve The mitral valve is normal in structure. No evidence of mitral valve stenosis. Trace mitral regurgitation. Tricuspid Valve Tricuspid valve is grossly normal in structure and function. Trace tricuspid regurgitation. There is insufficient TR jet to estimate RVSP. Pulmonic Valve The pulmonary valve is normal in structure. Trace pulmonic regurgitation. Great Vessels The aortic root is normal in size. The ascending aorta is not well-visualized. IVC is normal in size and collapses >50% with inspiration. Pericardium There is no pericardial effusion. Other Information Study Quality: Technically Difficult Conclusion Technically difficult study due to poor acoustic windows. Normal biventricular systolic function. No significant valvular stenosis or regurgitation. s/p PFO closure. Color Doppler demonstrates no evidence of residual interatrial shunt. Agitated saline administration demonstrates no evidence of interatrial shunt. Electronically signed by : Lani Red MD 05/03/2024 23:44:28
== END 2024-04-23 23:59 | disposition home or self-care (01) ==
LOC: RT 14:45
PROVIDERS: PCP Internal Medicine Adolescent Medicine; Visit Provider Internal Medicine Adolescent Medicine
DX: Q21.12 Patent foramen ovale (principal); R06.00 Dyspnea, unspecified
CPT/HCPCS: 93306

== ENCOUNTER 2024-05-04 07:58 | Outpatient (CLI) | payer MEDICARE, SELFPAY ==
[2024-05-04 08:05] LABS: Microscopic, Urine URINE MICROSCOPIC (MICROSCOPIC)
[2024-05-04 08:16] LABS: Appearance,Urine CLEAR (Clear); Bilirubin,Urine Negative (Negative); Blood, Urine Negative (Negative); Color,Urine YELLOW (Yellow); Glucose,Urine (UA) Negative (Negative); Ketones,Urine Negative (Negative); Leukocyte Esterase,Urine Negative (Negative); Nitrate,Urine Negative (Negative); Protein,Urine 2+ (Negative); Urobilinogen,Urine 0.2 EU/dl (0.2)
[2024-05-04 08:25] LABS: Bacteria,Urine Trace /lpf
[2024-05-04 08:37] LABS: Albumin Level 4.2 g/dl (3.5-5.0); Blood Urea Nitrogen 23 mg/dl (9-20); Calcium 9.3 mg/dl (8.4-10.2); Carbon Dioxide 31 mmol/L (22.0-30.0); Chloride 100 mmol/L (98-107); Estimated Glomerular Filt Rate 40 ml/min (>60); GFR (African American) 48 ML/MIN (>60); Glucose 221 mg/dl (74-100); Phosphorous 3.8 mg/dl (2.5-4.5); Sodium 138 mmol/L (136-145)
[2024-05-04 08:42] LABS: Creatinine,Urine Random 76 mg/dL (Not Estab.)
== END 2024-05-04 23:59 | disposition home or self-care (01) ==
LOC: LAB 07:59
PROVIDERS: PCP Internal Medicine Adolescent Medicine; Visit Provider Student in an Organized Health Care Education/Training Program
DX: N28.9 Disorder of kidney and ureter, unspecified (principal)
CPT/HCPCS: 36415; 80069; 81001; 82570; 84156

== ENCOUNTER 2024-07-28 12:49 | Outpatient (RCR) | payer MEDICARE, SELFPAY | END 2024-09-11 14:00 | disposition home or self-care (01) | LOC: PULREHAB 12:49 | PROVIDERS: Visit Provider Internal Medicine Critical Care Medicine | DX: J44.9 Chronic obstructive pulmonary disease, unspecified (principal) | CPT/HCPCS: 93798; 94626 ==

== ENCOUNTER 2024-11-02 08:09 | Outpatient (CLI) | payer MEDICARE, SELFPAY ==
[2024-11-02 08:19] LABS: Microscopic, Urine URINE MICROSCOPIC (MICROSCOPIC)
[2024-11-02 08:42] LABS: Appearance,Urine CLEAR (Clear); Bilirubin,Urine Negative (Negative); Blood, Urine Negative (Negative); Color,Urine YELLOW (Yellow); Glucose,Urine (UA) Negative (Negative); Hematocrit 50.4 % (42.0-52.0); Hemoglobin 16.7 g/dL (14.1-18.0); Ketones,Urine Negative (Negative); Leukocyte Esterase,Urine Negative (Negative); Mean Corpuscular HGB Conc 33.1 g/dL (31.8-35.4); Mean Corpuscular Hemoglobin 29.6 pg (27.0-31.2); Mean Corpuscular Volume 89.4 fl (80-94); Nitrate,Urine Negative (Negative); Nucleated Red Blood Cells # 0 10^3/uL; Nucleated Red Blood Cells % 0 %; Platelet Count 251 K/mm3 (142-424); Protein,Urine 2+ (Negative); Red Blood Count 5.64 M/mm3 (4.60-6.20); Red Cell Distribution Width 12.2 % (11.5-17.5); Red Cell Distribution Width-SD 39.3 fL; Specific Gravity, Urine 1.015 (1.005-1.030); Urobilinogen,Urine 0.2 EU/dl (0.2); White Blood Count 11.1 K/mm3 (4.8-10.8)
[2024-11-02 09:09] LABS: Albumin Level 4.5 g/dl (3.5-5.0); Anion Gap 11.4 mEq/L (5-15); Blood Urea Nitrogen 23 mg/dl (9-20); Calcium 9.6 mg/dl (8.4-10.2); Carbon Dioxide 31 mmol/L (22.0-30.0); Chloride 103 mmol/L (98-107); Estimated Glomerular Filt Rate 46 ml/min (>60); GFR (African American) 55 ML/MIN (>60); Glucose 109 mg/dl (74-100); Phosphorous 4.1 mg/dl (2.5-4.5); Potassium 5.4 mmoL/L (3.5-5.1); Sodium 140 mmol/L (136-145)
[2024-11-02 09:12] LABS: Bacteria,Urine Trace /lpf; Squamous Epithelial Cell,Urine Occasional #/hpf (0-5); WBC,Urine Occasional #/hpf (0-3)
[2024-11-02 09:21] LABS: Intact Parathyroid Hormone 151.3 pg/mL (7.5-53.5)
[2024-11-02 09:26] LABS: 25-OH Vitamin D, Total 37.8 ng/mL (30-100)
[2024-11-02 09:38] LABS: Creatinine,Urine Random 85 mg/dL (Not Estab.); Microalbumin/Creatinine Ratio 1041.8
== END 2024-11-02 23:59 | disposition home or self-care (01) ==
LOC: LAB 08:10
PROVIDERS: PCP Internal Medicine Adolescent Medicine; Visit Provider Student in an Organized Health Care Education/Training Program
DX: N18.9 Chronic kidney disease, unspecified (principal); E83.9 Disorder of mineral metabolism, unspecified; M89.9 Disorder of bone, unspecified; E66.812 Obesity, class 2; E66.01 Morbid (severe) obesity due to excess calories; Z68.36 Body mass index [BMI] 36.0-36.9, adult
CPT/HCPCS: 36415; 80069; 81001; 82043; 82306; 82570; 83970; 84156; 85027

== ENCOUNTER 2025-02-10 07:08 | Outpatient (CLI) | payer MEDICARE, SELFPAY ==
--- OUTSIDE RECORDS SUMMARY | 2024-11-04 04:45 | XMS_ITS ---
Author Organization [facility] Address [address] [place] [address] Care Team Providers Care Diesel Engine Operator Name Role Phone Obi Lock Primary Care Provider REASON FOR VISIT 2 Month F/U Encounters Encounter Location Date Provider Diagnosis [facility] [address] [place] [address] 11/04/2024 Obi Lock Plan Of Treatment Next Appt Details Provider Name:bOi Lock, 05/17/2025 09:30:00 AM, [address], [address], [place], [place], [address], Progress Notes * Elida FLANAGANOB:1950 ([age] yo M)Acc No.[id number]:11/04/2024 Progress Notes Patient: Martin BEARDEN Provider: Milan Lock MD :1950 A ge:73 Y S ex:Male Date:11/04/2024 Address:[id number] Subjective: * Chief Complaints: * 1 . 2 Month F/U. * Medical History: Objective: * Vitals: Assessment: Plan: * Treatment: * * Electronic signature of Mario Lock MD FAAP on 02/10/2025 at 07:11 AM EDT Sign off status: Pending * Provider: Milan Lock MD Date: 0 11/04/2024 Generated for Brandie mcintyre/Arash/Kathleen on: 0 02/10/2025 07:11 AM EDT
--- OUTSIDE RECORDS SUMMARY | 2024-12-23 07:15 | XMS_ITS ---
Author Organization [facility] D LUCIA Address [address] [place] [address] Care Team Providers Care Corporate Director Of Pharmacy Name Role Phone Obi Lock Primary Care Provider [phone] Allergies Allergen (clinical drug ingredient) Drug/Non Drug Allergy documented on EMR Reaction Allergy Type Onset Date Status IV DYE (uncoded) Hands and feet swelling Allergy Active niacin Niacin Shook all over Drug Allergy Ac tive Results Component Value Reference Range Notes BASIC METABOLIC PANEL (65415 ) Reviewed date:2024 11:12:41 AM Interpretation: Performing Lab:[facility] [id number], [id number] Eve[place] Flores Notes/Report: NON-FASTING; NON-FASTING GLUCOSE 92 65-99 mg/dL Fasting reference interval UREA NITROGEN (BUN) 23 7-25 mg/dL CREATININE 1.47 0.70-1.28 mg/dL EGFR 50 > OR = 60 mL/min/1.73m2 BUN/CREATININE RATIO 16 6-22 (calc) SODIUM 140 135-146 mmol/L POTASSIUM 4.7 3.5-5.3 mmol/L CHLORIDE 99 98-110 mmol/L CARBON DIOXIDE 30 20-32 mmol/L CALCIUM 9.7 8.6-10.3 mg/dL HEMOGLOBIN A1c (496) Reviewed date:2024 11:12:41 AM Interpretation: Performing Lab:[facility] [id number], [id number] [place] Flores Notes/Report: NON-FASTING; NON-FASTING HEMOGLOBIN A1c 7.8 <5.7 % For someone without known diabetes, a hemoglobin A1c value of 6.5% or greater indicates that they may have diabetes and this should be confirmed with a follow-up test. For someone with known diabetes, a value <7% indicates that their diabetes is well controlled and a value greater than or equal to 7% indicates suboptimal control. A1c targets should be individualized based on duration of diabetes, age, comorbid conditions, and other considerations. Currently, no consensus exists regarding use of hemoglobin A1c for diagnosis of diabetes for children. REASON FOR VISIT follow up, [employer] [facility] Medications Medication SIG (Take, Route, Frequency, Duration) Notes Start Date End Date Status buPROPion HCl ER (SR) 150 MG 1 tab(s) orally every 24 hours; Duration: 90 days Active Metamucil 2 TABS ORALLY ONCE DAILY Active Fish Oil 1000 MG 2 TABS PO QD; Duration: 90 DAYS Active Aspirin 81 MG 1 TAB(S) ORALLY ONCE A DAY; Duration: 90 DAYS Active ALLERGY AND CONGESTION RELIEF 10 MG-240 MG 1 TAB(S) ORALLY ONCE A DAY; Duration: 90 DAYS 06/24/2023 Active Dexcom G7 Sensor - use for CGM; Duratio n: 90 days DX: E11.69 09/23/2024 Active Losartan Potassium 50 MG 1 tab(s) orally once a day; Duration: 90 days 03/16/2024 Active Atorvastatin Calcium 80 MG 1 tab(s) orally once a day; Duration: 90 days Active Metoprolol Tartrate 25 MG 2 tab(s) orall y once daily; Duration: 90 days Active HumuLIN 70/30 KwikPen (70-30) 100 UNIT/ML 24 units Subcutaneous breakfast and supper; Duration: 90 days 09/16/2024 Active Rybelsus 14 MG 1 tab(s) orally once a day; Duration: 90 days 03/16/2024 Active Trelegy Ellipta 100-62.5-25 MCG/ACT INHALE 1 PUFF ONE TIME DAILY; Duration: 90 Active Dexcom G7 Station [employer]ist use for CGM; Duratio n: 90 days DX: E11.69 09/23/2024 Active Memantine HCl 5 MG TAKE 1 TABLET TWICE DAILY; Duration: 90 Active Albuterol Sulfate HFA 108 (90 Base) MCG/ACT 2 puff as needed Inhalation every 6 hours; Duration: 90 days 11/20/2024 Active ALBUTEROL (EQV-PROAIR HFA) 90 MCG/INH 2 PUFF(S) INHALED EVERY 6 HOURS; Duration: 90 DAYS prn 06/24/2023 Active Fluticasone Propionate 50 MCG/ACT 2 sprays in each nostril once a day; Duration: 90 days Active Ipratropium-Albuterol 0.5-2.5 (3) MG/3ML 3 mL by nebulizer 1 to 2 times daily; Duration: 90 days Active Levocetirizine Dihydrochloride 5 MG 1 tab(s) orally once a day (in the evening); Duration: 90 days Active Pen Newport 32G X 4 MM as directed 09/16/2024 Active Tamsulosin HCl 0.4 MG 1 cap(s) orally on ce a day; Duration: 90 days Active Docusate Sodium 250 MG 1 cap(s) orally o nce a day; Duration: 90 days 06/21/2022 Active Social History Tobacco Use: Social History Observation Description Date Details (start date - stop date) Former Smoker NA - NA Tobacco Control (Standard) Question Answer Notes Tobacco use: Former smoker How long has it been since you last smoked? 3-6 months Vital Signs BMI 33.37 kg/m2 12/23/2024 Weight 226 lbs 12/23/2024 Height 69 in 12/23/2024 Heart Rate 88 /min 12/23/2024 Blood pressure systolic 126 mm Hg 12/24/19 25 Blood pressure diastolic 74 mm Hg 025 Temperature 98.0 degrees Fahrenheit 12/24/19 25 Encounters Encounter Location Date Provider Diagnosis [facility] L[place] [address] [place], [place] [address] 12/23/2024 Obi Lock Type 2 diabetes mellitus with other specified complication E11.69 ; Hyperlipemia, idiopathic familial E78.5 ; Hypertension, essential I10 and Routine medical exam Z00.00 Assessments Encounter Date Diagnosis (ICD Code) Assessment Notes Treatment Notes Treatment Clinical Notes Section Notes 12/23/2024 Type 2 diabetes mellitus with other specified complication (ICD-10 - E11.69) - Last A1C >14 on 08/2024 - Has CGM, average readings having been around 150 - Currently self titrating 70/30 insulin and now on 16U BID, counseled on increasing insulin to target average blood glucose to around 130 - Has proteinuria, consider SGLT2i, will repeat labs today and assess at next visit 12/23/2024 Hyperlipemia, idiopathic familial (ICD-10 - E78.5) - Continue statin 12/23/2024 Hypertension, essential (ICD-10 - I10) - BP well controlled - Continue losartan, refilled 12/23/2024 Routine medical exam (ICD-10 - Z00.00) Up-to-date with colon screening and low-dose CT screening. Has stopped smoking. Vaccines up-to-date. No recent falls. No Cognitive impairment not noted. 12/23/2024 Other - Has brittle nails - Recommended daily multivitamen Plan Of Treatment Medication Medication Name Sig Start Date Stop Date Notes buPROPion HCl ER (SR) 150 MG 1 tab(s) or ally every 24 hours; Duration: 90 days Losartan Potassium 50 MG 1 tab(s) orally once a day; Duration: 90 days 03/16/2024 Atorvastatin Calcium 80 MG 1 tab(s) oral ly once a day; Duration: 90 days Metoprolol Tartrate 25 MG 2 tab(s) orall y once daily; Duration: 90 days Rybelsus 14 MG 1 tab(s) orally once a day; Duration: 90 days 03/16/2024 Treatment Notes Assessment Notes Type 2 diabetes mellitus wit h other specified complication - Last A1C >14 on 08/2024 - Has CGM, average readings having been around 150 - Currently self titrating 70/30 insulin and now on 16U BID, counseled on increasing insulin to target average blood glucose to around 130 - Has proteinuria, consider SGLT2i, will repeat labs today and assess at next visit Hyperlipemia, idiopathic familial - Cont inue statin Hypertension, essential - BP well controlled - Continue losartan, refilled Routine medical exam Up-to-date with colon screening and low-dose CT screening. Has stopped smoking. Vaccines up-to-date. No recent falls. No Cognitive impairment not noted. Other - Has brittle nails - Recommended daily multivitamen Next Appt Details Follow Up: prn, Reason: Provider Name:Obi Lock, 05/17/2025 09:30:00 AM, [address], [address], [place], [address], Progress Notes * Elida FLANAGANOB:1950 ([age] yo M)Acc No.[id number]:12/23/2024 Progress Notes Patient: Martin BEARDEN Provider: Milan Lock MD :1950 A ge:73 Y S ex:Male Date:12/23/2024 Address:[address], [id number] Subjective: * Chief Complaints: * 1 . Follow up. 2. [employer] PAF. * HPI: g en: Martin Flanagan is a 73 yo M here for follow up. He just went on an [employer] cruise and felt great. Since returning he has felt like he's had a viral illness. He complains of constipation, congestion and head ache. He had one episode of bright red blood. He also complains of lack of smell and taste over last 6-8 weeks. States if he ate peas or carrots, he would not be able to tell the difference. He has some breakage and thinning of his nails. His vision is worse and now wears glasses. His blood sugar on his CGM has averaged around 140s. His urine is still frothy. * Medical History: C OPD , High Blood pressure , HLD, Vitamin D Deficiency, Normal abdominal aortic ultrasound for AAA screening in 2015, Low-dose CT scan January 2021 with benign-appearing mass, f/u with contrast appeared unchanged.. recheck one year, Colonoscopy 03/2022 with 4 tubular adenomas, Lung Nodule or Mass 2023. * Surgical History: C olonoscopy 07/05/15, Hole fixed in heart 2006, Bilateral Rotator Cuff Repair 2008, Colonoscopy 03/2017, Colonoscopy 03/2022, Eyelid lift 04/2022, laser surgery on prostate 09/2022, Dental extraction 10/23. * Hospitalization/Major Diagno stic Procedure: p yaneth 2011. * Family History: F ather: 66 yrs, Brain Hemerage. M other: 56 yrs, Cancer. P aternal Grand Father: . P aternal Grand Mother: . M aternal Grand Father: . Maternal Grand Mother: . P aternal aunt: unknown. M aternal uncle: , cancer. M aternal aunt: , cancer. S iblonnie: alive, 1 sister -brain cancer, diagnosed with Cancer. Teresa daniel: alive. 3 brother(s) , 3 sister(s) . 1 son(s) , 3 daughter(s) - healthy. . * Social History: R ecreational drug use: no. Exercise: yes. Home smoke detector use: yes. Caffeine: yes, frequency:pot of coffee daily. Living Will: No. Alcohol: socially, Last drink on Saturday - one beer. Sexually active: no. Travel outside [place]: yes, July 2023- [place]. Occupation: Retired. Tobacco Control (Standard) T obacco use: F ormer smoker, H ow long has it been since you last smoked??3-6 months. * Medications: T aking Metamucil TABS 2 TABS ORALLY ONCE DAILY , Taking Fish Oil 1000 MG 2 TABS PO QD , Taking Aspirin 81 MG TABLET 1 TAB(S) ORALLY ONCE A DAY , Taking ALLERGY AND CONGESTION RELIEF 10 MG-240 MG TABLET, EXTENDED RELEASE 1 TAB(S) ORALLY ONCE A DAY , Taking Tamsulosin HCl 0.4 MG Capsule 1 cap(s) orally once a day , Taking Docusate Sodium 250 MG Capsule 1 cap(s) orally once a day , Taking ALBUTEROL (EQV-PROAIR HFA) 90 MCG/INH AEROSOL 2 PUFF(S) INHALED EVERY 6 HOURS , Notes to Pharmacist: prn, Taking Fluticasone Propionate 50 MCG/ACT Suspension 2 sprays in each nostril once a day , Taking buPROPion HCl ER (SR) 150 MG Tablet Extended Release 12 Hour 1 tab(s) orally every 24 hours , Taking Losartan Potassium 50 MG Tablet 1 tab(s) orally once a day , Taking Atorvastatin Calcium 80 MG Tablet 1 tab(s) orally once a day , Taking Ipratropium-Albuterol 0.5-2.5 (3) MG/3ML Solution 3 mL by nebulizer 1 to 2 times daily , Taking Metoprolol Tartrate 25 MG Tablet 2 tab(s) orally once daily , Taking Rybelsus 14 MG Tablet 1 tab(s) orally once a day , Taking Levocetirizine Dihydrochloride 5 MG Tablet 1 tab(s) orally once a day (in the evening) , Taking Pen Newport 32G X 4 MM Miscellaneous as directed , Taking Trelegy Ellipta 100-62.5-25 MCG/ACT Aerosol Powder Breath Activated INHALE 1 PUFF ONE TIME DAILY , Taking Dexcom G7 Station [employer]ist use for CGM , Notes to Pharmacist: DX: E11.69, Taking Memantine HCl 5 MG Tablet TAKE 1 TABLET TWICE DAILY , Taking Albuterol Sulfate HFA 108 (90 Base) MCG/ACT Aerosol Solution 2 puff as needed Inhalation every 6 hours , Taking HumuLIN 70/30 KwikPen (70-30) 100 UNIT/ML Suspension Pen-injector 24 units Subcutaneous breakfast and supper , Taking Dexcom G7 Sensor - Miscellaneous use for CGM , Notes to Pharmacist: DX: E11, Medication List reviewed and reconciled with the patient * Allergies: N iacin: Shook all over, IV DYE: Hands and feet swelling. Objective: * Vitals: N urse: be, Pain: 0, Temp: 98.0, RR: 16, HR: 88, BP: 126/74, Ht: 69, Wt: 226, BMI:33.37. * Examination: G eneral Examination: General P leasant and Cooperative, NAD on RA,. Heart: R egular Rate and Rhythm, no murmur, rubs or gallops. Lungs: f aint wheezing. Extremities: b rittle, splitting nails. ? Assessment: * Assessment: 1. T ype 2 diabetes mellitus with other specified complication - E11. (Primary) ?2. H yperlipemia, idiopathic familial - E78.5 3 . H ypertension, essential - I10 4 . R outine medical exam - Z00.00 Plan: * Treatment: Value Reference Range G LUCOSE 92 65-99 - mg/dL * U ABE NITROGEN (BUN) 23 7-25 - mg/dL * C REATININE 1.47 H 0.70-1.28 - mg/dL * B UN/CREATININE RATIO 16 6-22 - (calc) * S ODIUM 140 135-146 - mmol/L * P OTASSIUM 4.7 3.5-5.3 - mmol/L * C HLORIDE 99 98-110 - mmol/L * C ARBON DIOXIDE 30 20-32 - mmol/L * C ALCIUM 9.7 8.6-10.3 - mg/dL * E GFR 50 L > OR = 60 - mL/min/1 .73m2 * Evelin Cabrera 2024 11:12:34 AM EDT > [facility] lab was reviewed by Evelin Cabrera on 2024 at 11:12 AM EDT ?LAB: HEMOGLOBIN A1c (496)* Value Reference Range H EMOGLOBIN A1c 7.8 H <5.7 - % * Evelin Cabrera 2024 11:12:34 AM EDT > [facility] lab was reviewed by Evelin Cabrera on 2024 at 11:12 AM EDT Notes: - Last A1C >14 on 08/2024 - Has CGM, average readings having been around 150 - Currently self titrating 70/30 insulin and now on 16U BID, counseled on increasing insulin to target average blood glucose to around 130 - Has proteinuria, consider SGLT2i, will repeat labs today and assess at next visit ??2.?Hyperlipemia, idiopathic familial? Notes: - Continue statin??3.?Hypertension, essential? Refill Losartan Potassium Tablet, 50 MG, 1 tab(s), orally, once a day, 90 days, 90, Refills 3;?Refill Metoprolol Tartrate Tablet, 25 MG, 2 tab(s), orally, once daily, 90 days, 90, Refills 3; Refill Atorvastatin Calcium Tablet, 80 MG, 1 tab(s), orally, once a day, 90 days, 90, Refills 3. ? Notes: - BP well controlled - Continue losartan, refilled??4.?Routine medical exam? Notes: Up-to-date with colon screening and low-dose CT screening. Has stopped smoking. Vaccines up-to-date. No recent falls. No Cognitive impairment not noted.??5.?Others? Refill buPROPion HCl ER (SR) Tablet Extended Release 12 Hour, 150 MG, 1 tab(s), orally, every 24 hours, 90 days, 90, Refills 3.?? Notes: - Has brittle nails - Recommended daily multivitamen ?? * Procedure Codes: 9 6160 HEALTH RISK [id number] * Follow Up: p rn * * Sign off status: Completed true * Provider: Milan Lock MD Date: 0 12/23/2024 Generated for Printi ng/Famaguig/eTransmitting on: 0 02/10/2025 07:11 AM EDT History and Physical Notes * HPI (History of Present Illness) Category Sub-Category Detail Notes Category Not es gen Martin Flanagan is a 73 yo M here for follow up. He just went on an [employer] cruise and felt great. Since returning he has felt like he's had a viral illness. He complains of constipation, congestion and head ache. He had one episode of bright red blood. He also complains of lack of smell and taste over last 6-8 weeks. States if he ate peas or carrots, he would not be able to tell the difference. He has some breakage and thinning of his nails. His vision is worse and now wears glasses. His blood sugar on his CGM has averaged around 140s. His urine is still frothy. Examination Category Sub-Category Detail Notes Category Not es General Examination Heart: Regular Rate and Rhythm, no murmur, rubs or gallops Lungs: faint wheezing Extremities: brittle, splitting n ails General Pleasant and Coopera tive, NAD on RA,
--- OUTSIDE RECORDS SUMMARY | 2025-01-27 16:20 | XMS_ITS | Encounter Summary ---
Author Organization [facility] Address [address] [place] [address] Care Team Providers Care Labeling Associate Name Role Phone Obi Lock MD Primary Care Provider [phone] Reason for Referral * Consultation (Routine) - Authorized Specialty Diagnoses / Procedures Referred By Contac t Referred To Contact Diagnoses Chronic obstructive pulmonary disease, unspecified COPD type (CMS/HCC) Alice Robbins MD [address] [place] [address] Phone: tel: fax: Referral ID Status Reason Start Date Expiration Date V isits Requested Visits Authorized [id number] Authorized 01/27/2025 07/29/2026 1 1 Reason for Visit * Reason Comments Follow-up COPD Encounter Details Date Type Department Care Team (Late st Contact Info) Description 01/27/2025 4:20 PM EDT Office Visit [facility] [address] [place] [address] Alice Robbins MD [address] [place] [address] Chronic obstructive pulmonary disease, unspecified COPD type (CMS/HCC) (Primary Dx) Social History Tobacco Use Types Packs/Day Years Used Date Smoking Tobacco: Former Cigarettes 0.3 66.6 0 06/03/1957 - 01/02/2024 Passive Smoke Exposure: Past Smokeless Tobacco: Never Tobacco Cessation:Counseling Given: Not Answered Comments:Tried chewing tobacco one time Alcohol Use Standard Drinks/Week Comments Yes 0 (1 standard drink = 0.6 oz pur e alcohol) Social PHQ-2 Answer Date Recorded Patient Health Questionnaire-2 Score 0 07/08/2024 AUDIT-C Answer Date Recorded Q1: How often do you have a drink containing alcohol? Never 01/27/2025 Q2: How many drinks containi ng alcohol do you have on a typical day when you are drinking? Patient does not drink Q3: How often do you have si x or more drinks on one occasion? Never 01/27/2025 Sex and Gender Information Value Date Recorded Sex Assigned at Not on file Legal Sex Male 6:28 PM EDT Gender Identity Not on file Sexual Orientation Not on file documented as of this encounter Last Filed Vital Signs Vital Sign Reading Time Taken Comments Blood Pressure 107/73 01/27/2025 4:15 PM EDT Pulse 93 01/27/2025 4:15 PM EDT Temperature 36.5 C (97.7 F) 01/27/2025 4:15 PM EDT Respiratory Rate 20 01/27/2025 4:15 PM EDT Oxygen Saturation 90% 01/27/2025 4:15 PM EDT RA Inhaled Oxygen Concentration - - Weight 104 kg (229 lb 4.5 oz) 01/27/2025 4:15 PM EDT Height 175.3 cm (5' 9 ) 01/27/2025 4:15 PM EDT Body Mass Index 33.86 01/27/2025 4:15 PM EDT documented in this encounter Functional Status * AUDIT-C Score Answer Date of Assessment Author 0 01/27/2025 4:15 PM EDT Priti Cannon * Question Answer Date of Assessment Author Q1: How often do you have a drink containing alcohol? Never 01/27/2025 4:15 PM EDT Priti Berry Q2: How many drinks containing alcohol do you have on a typical day when you are drinking? Patient does not drink 01/27/2025 4:15 PM EDT Priti Trivedi Q3: How often do you have six or more drinks on one occasion? Never 01/27/2025 4:15 PM EDT Priti Berry documented as of this encounter Miscellaneous Notes * Progress Notes - Alice Robbins MD - 01/27/2025 4:20 PM EDT Images from the original note were not included. [facility] Pulmonology Office Visit Martin Flanagan is a 74 y.o. male who presents to the outpatient general pulmonology clinic with the chief complaint of: Chief Complaint: COPD, lung scarring, B-symptoms HPI: 01/2025: Doing well, no issues. Did 11 pulm rehab sessions, had mild improvement 07/08/2024: Mucous is gone! Still ANDRADE with taking trash out, bringing in groceries, feeling overall stable at his baseline. May be inching his way better (can do 2 trips for groceries before getting SOB vs 1 trip). 02/28/2024: s/p bronch for LLL atelectasis, significant mucoid secretions on BAL. +PSA x2 biotype onculture (never grown before but has had very few cultures). Started cipro x14d and inh joce nebs x3mo (12/25-03/27). Still feeling easily winded. Sputum production has increased since starting Joce nebs. No recent illnesses. Baseline COPD, dx 10 years ago, on Trelegy and has helped COPD--SOB, ANDRADE, no chest tightness, occasional rattling, rare sputum production. Stays in house during winter b/c temperature changes flare breathing. Needs steroids/abx once per year b/c he gets PNA. Current smoker, 1-2 cigs per week, 4ppd previously for 2-3 years, probably close to 1ppd for most of his life about 60ish. Tested NEGATIVEfor KATHY in mid s. covid/pneumococcal PNA, 2021 First told he had scaring in lung ~15 years ago, thought to be from PNA. Seems to have been seen by Dr. Mccollum in 2016 and got a bronch for LLL atalectasis and left sidechest pain. Referred from PCP for worsening LLL lung scaring and B-symptoms (though has had night sweats all his life and denies fevers), query need for bronch. Has intermittent cough and mild ANDRADE. Social/Exposure Pulmonary history: Smoking: Current smoker, 1-2 cigs per week; 4ppd previously for 2-3 years, probably close to 1ppd for most of his life about 60ish years. Previous/Childhood lung disease: PNA, no asthma/lung disease Reflux: none Sinus drainage/post nasal drip: intermittent sinus congestion Allergies: no Family Hx lung diseases: cancer (several lung cancers) Personal or FHx autoimmune dz: no Premature : no Living Environment/exposures/standing water: modular home, no exposures at home. 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 GEN: NAD, sitting comfortably in chair. No conversational dyspnea. HEENT: no obvious LAD, MMM, good dentition HEART: RRR, S1 S2, no MRG. LUNGS: diminished BS b/l, no wheezing or ronchi. ABDO: non-distended, non-tender, +BS EXT: no edema, no rashes or lesions Data Reviewed Personally By Me This Visit: Hgb: 15.9 Eos: 100 Bicarb: 27 Sputum Cx 10/23/2023: poor specimen AFB 10/23/2023: poor specimen; negative smear thus far PFT 10/23/2023: moderate obstruction, FEV1 43% with +AUDOGRAPH OPERATOR in FEV1 and very robust response in [id number] Multiox 11/29/2023: 93% RA rest; 89% RA walking PFT 02/28/2024: moderate obstruction FEV1 51%, neg AUDOGRAPH OPERATOR, no [id number] response. TLC 97%, RV 160% and RV/TLC 163%, DLCO 50%. Multiox: desatted with ambulation, required 1L with exertion Imaging: CT a/p 06/2022 CT chest 12/2023: LLL bronchiectasis with parenchymal scarring. Upper lobe predominant emphysema. Bronch by me 12/2023: LLL narrowing but nothing endobronchial. Significant mucous throughout. +PSA x2 biotypes. Assessment and Plan: Martin Flanagan 74 y.o. male with COPD and lung scarring #COPD: minimal cough and phlegm. Moderate obstruction FEV1 43%-->51%, TLC 97%. Upper-lobe predominate emphysema. He is borderline on meeting criteria for BLVR or LVRS. #LLL Lung scarring, LLL Bronchiectasis: PSA x2 biotypes and copious sputum on bronch/BAL. S/p [id number] and inh joce 3 months (-03/2024), never got sputum cx after completion of eradication therapy.Completed pulm rehab in [facility] 11 sessions 2024. - Cont Trelegy #hypoxemia: 91% on RA. H/o PFO--repaired by Dr. Dewey. - 1L exertional O2 prescribed (can self-titrate to keep SpO2 >88%) - sent in updated script requesting POC #Tobacco: Has quit smoking as of December 2023!!!! #LDCT: PCP is managing?? Pt will find out--will send me my chart message. #Possible KATHY: stop bang 7 points (high risk) - referred to sleep, has not seen yet Vaccine: RSV vaccine and flu and PNA and shingles No follow-ups on file. [address] Alice Robbins MD Chief [employer] vice president Division of Pulmonary, Critical Care, and Sleep Medicine [facility] Pager: Office: Orders Placed This Encounter Procedures Follow Up Pulm I personally spent a total of 20 minutes in direct care for this patient on the date of service. This time was spent on review of the chart, discussion with other providers, review of notes written by other providers, personal review of images and results of studies, history taking and review, review of systems, discussion with the patient, care planning and coordination, and the making of medical orders. Answers submitted by the patient for this visit: Pulmonology Questionnaire (Submitted on 01/26/2025) Chief Complaint: Primary symptoms Which of the following makes your symptoms worse?: nothing Which of the following makes your symptoms better?: nothing documented in this encounter Plan of Treatment Upcoming Encounters Date Type Department Care Team (Late st Contact Info) Description 01/26/2026 1:00 PM EDT Office Visit [facility] Medicine Specialties [address] [place] [address] Alice Robbins MD [address] [place] [address] Scheduled Referrals Name Type Priority Associated Diagnoses Orde r Schedule Follow Up Pulm Outpatient Referral Routine Chronic obstructive pulmonary disease, unspecified COPD type (CMS/HCC) Expected: 01/27/2026, Expires: 08/01/2026 documented as of this encounter Visit Diagnoses Diagnosis Chronic obstructive pulmonary disease, unspecified COPD type (CMS/HCC)- Primary documented in this encounter Additional Health Concerns Assessment Noted Time A fall risk assessment has been complete d for the patient 01/27/2025 4:17 PM EDT A Body Mass Index follow-up plan has been documented for the patient 01/27/2025 4:52 PM EDT documented as of this encounter Care Teams Labeling Associate Relationship Specialty Start Date End Date Obi Lock MD [address] [place] [address] PCP - General Internal Medicine 10/23/23 documented as of this encounter
--- OUTSIDE RECORDS SUMMARY | 2025-02-03 08:15 | XMS_ITS ---
Author Organization [facility] PE D LUCIA Address [address] [place] [address] Care Team Providers Care Job Training Supervisor Name Role Phone Obi Lock Primary Care Provider [phone] Allergies Allergen (clinical drug ingredient) Drug/Non Drug Allergy documented on EMR Reaction Allergy Type Onset Date Status IV DYE (uncoded) Hands and feet swelling Allergy Active niacin Niacin Shook all over Drug Allergy Ac tive Results Component Value Reference Range Notes BASIC METABOLIC PANEL (87489 ) (Not yet reviewed by provider) Interpretation: Performing Lab:[facility], [facility] [address], [facility] [place] Flores Notes/Report: NON-FASTING GLUCOSE 74 65-99 mg/dL Fasting reference interval UREA NITROGEN (BUN) 21 7-25 mg/dL CREATININE 1.48 0.70-1.28 mg/dL EGFR 49 > OR = 60 mL/min/1.73m2 BUN/CREATININE RATIO 14 6-22 (calc) SODIUM 136 135-146 mmol/L POTASSIUM 4.9 3.5-5.3 mmol/L CHLORIDE 98 98-110 mmol/L CARBON DIOXIDE 29 20-32 mmol/L CALCIUM 9.5 8.6-10.3 mg/dL Reason For Referral Reason needs repeat low dos e CT scan Diagnosis 1 Personal history of nicotine dependence (Z87.891) Referral Organization [facility]UC[facility] Referring Provider First Name Obi Referring Provider Last Name Hayde Referring Provider Speciality Internal M edicine Referred Organization [facility] Referred Address [address] [facility] [place], [place],[address],[place] Referred Provider Specialty Diagnostic R adiology Referral Priority Routine REASON FOR VISIT 6 wk FU, Medicare AWV Medications Medication SIG (Take, Route, Frequency, Duration) Notes Start Date End Date Status Losartan Potassium 50 MG 1 tab(s) orally once a day; Duration: 90 days 03/16/2024 Active Rybelsus 14 MG 1 tab(s) orally once a day; Duration: 90 days 03/16/2024 Active Dexcom G7 Sensor - use for CGM; Duratio n: 90 days DX: E11.69 09/23/2024 Active HumuLIN 70/30 KwikPen (70-30) 100 UNIT/ML 24 units Subcutaneous breakfast and supper; Duration: 90 days 09/16/2024 Active Metoprolol Tartrate 25 MG 2 tab(s) orall y once daily; Duration: 90 days Active Albuterol Sulfate HFA 108 (90 Base) MCG/ACT 2 puff as needed Inhalation every 6 hours; Duration: 90 days 11/20/2024 Active Memantine HCl 5 MG TAKE 1 TABLET TWICE DAILY; Duration: 90 Active Dexcom G7 Manager Mac use for CGM; Duratio n: 90 days DX: E11.69 09/23/2024 Active Trelegy Ellipta 100-62.5-25 MCG/ACT INHALE 1 PUFF ONE TIME DAILY; Duration: 90 Active Levocetirizine Dihydrochloride 5 MG 1 tab(s) orally once a day (in the evening); Duration: 90 days Active Docusate Sodium 250 MG 1 cap(s) orally o nce a day; Duration: 90 days 06/21/2022 Active Tamsulosin HCl 0.4 MG 1 cap(s) orally on ce a day; Duration: 90 days Active Ipratropium-Albuterol 0.5-2.5 (3) MG/3ML 3 mL by nebulizer 1 to 2 times daily; Duration: 90 days Active Fluticasone Propionate 50 MCG/ACT 2 sprays in each nostril once a day; Duration: 90 days prn Active ALBUTEROL (EQV-PROAIR HFA) 90 MCG/INH 2 PUFF(S) INHALED EVERY 6 HOURS; Duration: 90 DAYS prn 06/24/2023 Active Fish Oil 1000 MG 2 TABS PO QD; Duration: 90 DAYS Active Metamucil 2 TABS ORALLY ONCE DAILY Active TRUEplus Lancets 28G - USE DAILY AND NEEDED; Duration: 30 Active ALLERGY AND CONGESTION RELIEF 10 MG-240 MG 1 TAB(S) ORALLY ONCE A DAY; Duration: 90 DAYS 06/24/2023 Active Aspirin 81 MG 1 TAB(S) ORALLY ONCE A DAY; Duration: 90 DAYS Active Mupirocin 2 % 1 gomez applied topically 3 times a day; Duration: 7 day(s) 02/03/2025 Active buPROPion HCl ER (SR) 150 MG 1 tab(s) orally every 24 hours; Duration: 90 days Active Atorvastatin Calcium 80 MG 1 tab(s) orally once a day; Duration: 90 days Active Immunizations Vaccine Route Administration Date Status Comme nts Fluzone High Dose IM Intramuscular 02/03/2025 Administered Social History Tobacco Use: Social History Observation Description Date Details (start date - stop date) Former Smoker NA - NA Tobacco Control (Standard) Question Answer Notes Tobacco use: Former smoker How long has it been since you last smoked? 3-6 months Problems Problem Type SNOMED Code ICD Code Onset Dates Problem Status W/U Status Risk Notes Problem Pressure injury of left buttock stage I (disorder) ([id number]) Pressure injury of left buttock, stage 1 (L89.321) Active confirmed Vital Signs Temperature 97.3 degrees Fahrenheit 02/04/20 25 Blood pressure systolic 122 mm Hg 02/04/20 25 Blood pressure diastolic 78 mm Hg 025 Heart Rate 88 /min 02/03/2025 Height 69 in 02/03/2025 Weight 227.6 lbs 02/03/2025 BMI 33.61 kg/m2 02/03/2025 Encounters Encounter Location Date Provider Diagnosis [facility] [address] [place] [address] 02/03/2025 Obi Lock Type 2 diabetes mellitus with other specified complication E11.69 ; Elevated serum creatinine R79.89 ; Pressure injury of left buttock, stage 1 L89.321 ; Personal history of nicotine dependence Z87.891 ; Hypertension, essential I10 ; Chronic obstructive pulmonary disease, unspecified COPD type J44.9 ; Routine medical exam Z00.00 and Immunization(s) administered Z23 Assessments Encounter Date Diagnosis (ICD Code) Assessment Notes Treatment Notes Treatment Clinical Notes Section Notes 02/03/2025 Type 2 diabetes mellitus with other specified complication (ICD-10 - E11.69) Glucose levels improving, Dexcom seems to be helping. We discussed his Dexcom troubles. Have advised him to call tech-support and see if there is a better way to calibrate his machine. A1c was only done 6 weeks ago, I will see him back in May and repeat A1c at that point 02/03/2025 Elevated serum creatinine (ICD-10 - R79.89) Creatinine is improving. Will recheck today 02/03/2025 Pressure injury of left buttock, stage 1 (ICD-10 - L89.321) Discussed adjusting pillows on his chairs, discussed mupirocin to help with healing 02/03/2025 Personal history of nicotine dependence (ICD-10 - Z87.891) Has been a neck smoker for a while, still needs low-dose CTs, this will be ordered 02/03/2025 Hypertension, essential (ICD-10 - I10) 02/03/2025 Chronic obstructive pulmonary disease, unspecified COPD type (ICD-10 - J44.9) 02/03/2025 Routine medical exam (ICD-10 - Z00.00) Flu shot today, up-to-date with cancer screenings. Other vaccines up-to-date. No falls. Depression screening negative. 3 word recall intact. is healthcare surrogate. 02/03/2025 Immunization(s) administered (ICD-10 - Z23) Plan Of Treatment Medication Medication Name Sig Start Date Stop Date Notes Mupirocin 2 % 1 gomez applied topica lly 3 times a day; Duration: 7 day(s) 02/03/2025 Treatment Notes Assessment Notes Type 2 diabetes mellitus wit h other specified complication Glucose levels improving, Dexcom seems to be helping. We discussed his Dexcom troubles. Have advised him to call tech-support and see if there is a better way to calibrate his machine. A1c was only done 6 weeks ago, I will see him back in May and repeat A1c at that point Elevated serum creatinine Creatinine is improving. Will recheck today Pressure injury of left buttock, stage 1 Discussed adjusting pillows on his chairs, discussed mupirocin to help with healing Personal history of nicotine dependence Has been a neck smoker for a while, still needs low-dose CTs, this will be ordered Routine medical exam Flu shot today, up-to-date with cancer screenings. Other vaccines up-to-date. No falls. Depression screening negative. 3 word recall intact. is healthcare surrogate. Pending Test Test Name Order Date BASIC METABOLIC PANEL (74606) 02/03/2025 Referrals Referral Date Details 02/03/2025 02/03/2025, needs re peat low dose CT scan, [address], [place], [address], Next Appt Details Follow Up: prn, Reason: Provider Name:Obi Lock, 05/17/2025 09:30:00 AM, [address], [address], [place], [address], Progress Notes * Elida FLANAGANOB:1950 ([age] yo M)Acc No.[id number]:02/03/2025 Progress Notes Patient: Martin BEARDEN Provider: Milan Lock MD :1950 A ge:74 Y S ex:Male Date:02/03/2025 Address:[address], [id number] Subjective: * Chief Complaints: * 1 . 6 wk FU. 2. Medicare AWV. * HPI: g en: Presents for follow-up of his diabetes, chronic kidney disease and a Medicare annual wellness visit. Overall feels great. Sugar continues to improve on current regimen. Visual acuity also has improved. He notices that his urine has been less foamy. He does have a couple of concerns about a spot on either side of his buttocks and some questions about calibrating his Dexcom device. I reviewed his HRA personally, see notes below by Medicare annual wellness visit. * ROS: F UNCTIONAL STATUS: ADLS I ndependent for all ADL/IADL. * Medical History: C OPD , High [...] 10/23. * Hospitalization/Major Diagno stic Procedure: p neumonia 2011. * Family History: F ather: 66 yrs, Brain Hemerage. M other: 56 yrs, Cancer. P aternal Grand Father: . P aternal Grand Mother: . M aternal Grand Father: . Maternal Grand Mother: . P aternal aunt: unknown. M aternal uncle: , cancer. M aternal aunt: , cancer. S iblings: alive, 1 sister -brain cancer, diagnosed with Cancer. C hildren: alive. 3 brother(s) , 3 sister(s) . 1 son(s) , 3 daughter(s) - healthy. . * Social History: R ecreational drug use: no. Exercise: yes. Home smoke detector use: yes. Caffeine: yes, frequency:pot of coffee daily. Living Will: No. Alcohol: socially, Last drink on Saturday - one beer. Sexually active: no. Travel outside [place]: yes, July 2023- [place]. Occupation: Retired. Tobacco Control (Standard) T obacco [...] in each nostril once a day , Notes to Pharmacist: prn, Taking Ipratropium-Albuterol 0.5-2.5 (3) MG/3ML Solution 3 mL by nebulizer 1 to 2 times daily , Taking Levocetirizine Dihydrochloride 5 MG Tablet 1 tab(s) orally once a day (in the evening) , Taking Trelegy Ellipta 100-62.5-25 MCG/ACT Aerosol Powder Breath Activated INHALE 1 PUFF ONE TIME DAILY , Taking Dexcom G7 Manager Mac use for CGM , Notes to Pharmacist: [...] , Notes to Pharmacist: DX: E11.69, Taking Rybelsus 14 MG Tablet 1 tab(s) orally once a day , Taking Losartan Potassium 50 MG Tablet 1 tab(s) orally once a day , Taking Metoprolol Tartrate 25 MG Tablet 2 tab(s) orally once daily , Taking Atorvastatin Calcium 80 MG Tablet 1 tab(s) orally once a day , Taking buPROPion HCl ER (SR) 150 MG Tablet Extended Release 12 Hour 1 tab(s) orally every 24 hours , Taking TRUEplus Lancets 28G - Miscellaneous USE DAILY AND NEEDED , Medication List reviewed and reconciled with the patient * Allergies: N iacin: Shook all over, IV DYE: Hands and feet swelling. Objective: * Vitals: N urse: aw, Pain: 0, Temp: 97.3, RR: 18, HR: 88, BP: 122/78, Ht: 69, Wt: 227.6, BMI:33.61. * Examination: G eneral Examination: General P leasant and Cooperative, NAD on RA,. Heart: R egular Rate and Rhythm, no murmur, rubs or gallops. Lungs: f aint wheezing. Extremities: N o edema, good distal perfusion.. S kin exam clear except for stage I decubitus ulcers on either buttock, no open skin, symmetrically pressure points noted. Assessment: * Assessment: 1. T ype 2 diabetes mellitus with other specified complication - E11.69 (Primary) ?2. E levated serum creatinine - R79.89 3 . P ressure injury of left buttock, stage 1 - L89.321 4 . P ersonal history of nicotine dependence - Z87.891 5. H ypertension, essential - I10 6 . C hronic obstructive pulmonary disease, unspecified COPD type - J44.9 7 . R outine medical exam - Z00.00 8 . I mmunization(s) administered - Z23 Plan: * Treatment: 2. E levated serum creatinine L AB: BASIC METABOLIC PANEL (09551) Notes: Creatinine is improving. Will recheck today 3. P ressure injury of left buttock, stage 1 Start Mupirocin Ointment, 2 %, 1 gomez, applied topically, 3 times a day, 7 day(s), 1 large tube, Refills 1. Notes: Discussed adjusting pillows on his chairs, discussed mupirocin to help with healing ? 4. P ersonal history of nicotine dependence Notes: Has been a neck smoker for a while, still needs low-dose CTs, this will be ordered ? Referral To: Reason:needs repeat low dose CT scan 5. R outine medical exam Notes: Flu shot today, up-to-date with cancer screenings. Other vaccines up-to-date. No falls. Depression screening negative. 3 word recall intact. is healthcare surrogate. * Immunizations: Fluzone High Dose : 0.5 mL (Route: Intramuscular) given by JUAN MANUEL Ponce on Right Deltoid (Immunization(s) administered) * Procedure Codes: 9 0662 Influenza High Dose Vaccine >65 Years Old, G0008 ADMINISTRATION-FLU VACCINE MEDICARE ONLY, G0439 ANNUAL WELLNESS VST; PPS SUBSQT VST, 1170F FUNCTIONAL STATUS ASSESSMENT, M1372 Mst rec gsa >=7 and<8, 1123F ADVANCED DIRECTIVE - HAS A LIVING WILL, 3017F COLORECTAL CA SCREEN DOC REV, G8417 BMI >=30 CALCUATE W/FOLLOWUP, G8510 NEGATIVE SCREENING F/U NOT REQUIRED, G9903 Pt scrn tbco id as non user, 1036F TOBACCO NON-USER, G8719 Most recent systolic blood pressure < 140mmhg, G8754 Most recent diastolic blood pressure < 90mmhg, G9744 PATIENT NOT ELIG D/T ACTIVE DX HTN * Follow Up: p rn * * Sign off status: Completed true * Provider: Milan Lock MD Date: 0 02/03/2025 Generated for Brandie mcintyre/Arash/eTransmitting on: 02/10/2025 07:11 AM EDT History and Physical Notes * HPI (History of Present Illness) Category Sub-Category Detail Notes Category Not es gen Presents for follow-up of his diabetes, chronic kidney disease and a Medicare annual wellness visit. Overall feels great. Sugar continues to improve on current regimen. Visual acuity also has improved. He notices that his urine has been less foamy. He does have a couple of concerns about a spot on either side of his buttocks and some questions about calibrating his Dexcom device. I reviewed his HRA personally, see notes below by Medicare annual wellness visit Examination Category Sub-Category Detail Notes Category Not es General Examination Heart: Regular Rate and Rhythm, no murmur, rubs or gallops Skin exam clear except for stage I decubitus ulcers on either buttock, no open skin, symmetrically pressure points noted Lungs: faint wheezing Extremities: No edema, good dista l perfusion. General Pleasant and Coopera tive, NAD on RA, Consultation Request Notes Referral Date Referring Provider Referred Provider Not arya 02/03/2025 Obi Lock , needs repeat low dose CT scan
--- OUTSIDE RECORDS SUMMARY | 2025-02-04 05:32 | XMS_ITS ---
Author Organization [facility] Address [address] [facility] [address] [facility] [address] [place] [address] Care Team Providers Care Marine Fuel Dock Attendant Name Role Phone Obi Lock Primary Care Provider Encounters Encounter Location Date Provider Diagnosis [facility] [address] [facility] [address] [place] [address] 02/04/2025 Obi Lock Personal history of nicotine dependence Z87.891 Assessments Encounter Date Diagnosis (ICD Code) Assessment Notes Treatment Notes Treatment Clinical Notes Section Notes 02/04/2025 Personal history of nicotine dependence (ICD-10 - Z87.891) Plan Of Treatment Pending Test Test Name Order Date CT Scan : Chest, Lung Cancer Screening 0 02/04/2025 Next Appt Details Provider Name:Obi Lock, 05/17/2025 09:30:00 AM, [address] [facility] [address] [facility], [address], [place], [address], Progress Notes * Elida FLANAGANOB:1950 ([age] yo M)Acc No.[id number]:02/04/2025 Patient: Martin BEARDEN :1950 A ge:74 Y S ex:Male Address:[address] [place], [address] Subjective: * Chief Complaints: * * Medical History: * Surgical History: * Hospitalization/Major Diagno stic Procedure: * Medications: Objective: * Vitals: * Physical Examination: Assessment: * Assessment: 1. P ersonal history of nicotine dependence - Z87.891 Plan: * Treatment: * * Procedure Codes: * true * Date: Generated for Brandie mcintyre/Arash/Kathleen on: 0 02/10/2025 07:11 AM EDT
--- OUTSIDE RECORDS SUMMARY | 2025-02-10 07:11 | XMS_ITS | Encounter Summary ---
Author Organization [facility] Address [address] [place] [address] Care Team Providers Care Metal Hardener Name Role Phone Obi Lock MD Primary Care Provider [phone] Reason for Referral * Consultation (Routine) - Closed Specialty Diagnoses / Procedures Referred By Contac t Referred To Contact Nephrology Diagnoses Renal insufficiency Renal cyst Elevated serum creatinine Obi Lock MD [address] [place] [address] Phone: tel: fax: [facility] Nephrology, Bone & Mineral Metabolism [address] [facility], [address] [place] [address] Phone: tel: fax: Referral ID Status Reason Start Date Expiration Date V isits Requested Visits Authorized [id number] Closed Specialty Services Required 03/18/2024 09/17/2025 1 1 Encounter Details Date Type Department Care Team (Latest Contact Info) Description 03/18/2024 [facility] [address] [place] [address] Obi Lock MD [address] [facility] [address] [place] [address] Renal insufficiency (Primary Dx); Renal cyst; Elevated serum creatinine Social History Tobacco Use Types Packs/Day Years Used Date Smoking Tobacco: Some Days Cigarettes 0.3 67.8 Started: 06/03/1957 Passive Smoke Exposure: Past Smokeless Tobacco: Never Comments:Tried chewing tobac co one time Alcohol Use Standard Drinks/Week Comments Yes 0 (1 standard drink = 0.6 oz pure alcohol) Alcoholic Drinks/day: Social alcohol use PHQ-2 Answer Date Recorded Patient Health Questionnaire-2 Score 0 02/28/2024 Sex and Gender Information Value Date Recorded Sex Assigned at Not on file Legal Sex Male 6:28 PM EDT Gender Identity Not on file Sexual Orientation Not on file documented as of this encounter Plan of Treatment Upcoming Encounters Date Type Department Care Team (Late st Contact Info) Description 01/26/2026 1:00 PM EDT Office Visit [facility] [address] [place] [phone] Alice Robbins MD [address] [place] [id number] Scheduled Referrals Name Type Priority Associated Diagnoses Order Schedule Ambulatory referral to Nephrology Outpatient Referral Routine Renal insufficiency Renal cyst Elevated serum creatinine Expected: 03/18/2024 (Approximate), Expires: 09/16/2025 documented as of this encounter Visit Diagnoses Diagnosis Renal insufficiency- Primary Unspecified disorder of kidney and ureter Renal cyst Unspecified congenital cystic kidney disease Elevated serum creatinine Other nonspecific findings on examination of blood documented in this encounter Additional Health Concerns Assessment Noted Time A fall risk assessment has been complete d for the patient 02/28/2024 11:02 AM EDT A Body Mass Index follow-up plan has been documented for the patient 02/28/2024 12:21 PM EDT documented as of this encounter Care Teams Metal Hardener Relationship Specialty Start Date End Date Obi Lock MD [address] [place] [address] PCP - General Internal Medicine 10/23/23 documented as of this encounter
--- OUTSIDE RECORDS SUMMARY | 2025-02-10 07:11 | XMS_ITS | Clinical Summary ---
Author Organization [facility] Address [address] [place] [address] Care Team Providers Care Court Clerk Name Role Phone Obi Lock MD Primary Care Provider + [phone] Allergies Active Allergy Reactions Criticality Noted Date Comments Iodinated Contrast Media Swelling High 02/02/2010 Hands and feet swelleduntil they cracked open Iv Contrast Unknown - Patient states they do not know rxn details Low 04/12/2016 contrast dye Niacin Other - please document in the comment field Low 02/02/2010 Shook all over Medications metoprolol tartrate (Lopressor) 25 MG tablet Take 1 tablet (25 mg) by mouth 2 (two) times a day. 016 Active buPROPion XL (Wellbutrin XL) 150 MG 24 hr tablet Take 1 tablet (150 mg) by mouth 1 (one) time each day. 023 Active polyethylene glycol (Miralax) 17 g packet Take 17 g by mouth 1 (one) time each day. Active levocetirizine (Xyzal) 5 MG tablet Take 1 tablet (5 mg) by mouth 1 (one) time each day in the evening. 023 Active atorvastatin (Lipitor) 80 MG tablet Take 1 tablet (80 mg) by mouth 1 (one) time each day in the evening. 016 Active omega-3 (Fish Oil) 1200 MG capsule Take 1 capsule (1,200 mg) by mouth 1 (one) time each day in the evening. Active Aspirin 81 MG capsule Take 81 mg by mouth 1 (one) time each day in the evening. Active fluticasone (Flonase) 50 MCG/ACT nasal spray Administer 2 sprays into each nostril if needed for allergies. 024 Active promethazine-d extromethorpha n (Phenergan-DM) 6.25-15 MG/5ML syrup Take by mouth 4 (four) times a day if needed for cough. Active semaglutide (Rybelsus) 3 MG tablet Take 3 mg by mouth 1 (one) time each day before breakfast. Active Continuous Glucose School Social Worker (Dexcom G7 School Social Worker) device use as directed Active Continuous Glucose Sensor (Dexcom G7 Sensor) misc change every 10 days as directed 025 Active HumuLIN 70/30 KWIKPEN (70-30) 100 UNIT/ML injection pen inject 24 units subcutaneously 2 TIMES A DAY Active BD Pen Needle Hodan 2nd Gen 32G X 4 MM misc use as directed 025 Active dapagliflozin (Farxiga) 10 MG tabletIndicati ons:Type 2 diabetes mellitus with diabetic chronic kidney disease, unspecified CKD stage, unspecified whether manager provider relations insulin use (CMS/HCC) Take 1 tablet by mouth daily. 90 tablet 3 025 Active losartan (Cozaar) 25 MG tabletIndicati ons:Type 2 diabetes mellitus with diabetic chronic kidney disease, unspecified CKD stage, unspecified whether jail insulin use (CMS/HCC) Take 1 tablet by mouth daily. 90 tablet 3 025 Active TRUEplus Lancets 28G misc USE DAILY AND NEEDED 025 Active Multiple Vitamin (MULTI VITAMIN MENS PO) 025 Active albuterol 108 (90 Base) MCG/ACT inhaler Inhale 2 puffs every 4 hours as needed for shortness of breath or wheezing. 1 each 025 Active ipratropium-al buterol (Duo-Neb) 0.5-2.5 mg/3 mL nebulizer solution Take 3 mL by nebulization every evening. 180 mL 11 025 Active Trelegy Ellipta 100-62.5-25 MCG/ACT aerosol powder Inhale 1 puff daily. 28 each 025 Active Trelegy Ellipta 100-62.5-25 MCG/ACT aerosol powder Inhale 1 puff 1 (one) time each day. 023 2024 Discontinued(R eorder) ascorbic acid (vitamin C) 1000 MG tablet Take 1 tablet (1,000 mg) by mouth 1 (one) time each day. 2024 Discontinued ipratropium-al buterol (Duo-Neb) 0.5-2.5 mg/3 mL nebulizer solution Take 3 mL by nebulization 1 (one) time each day in the evening. 023 2024 Discontinued(R eorder) cholecalcifero l (Vitamin D-3) 50 MCG (2000 UT) capsule Take 1 capsule (2,000 Units) by mouth 1 (one) time each day in the evening. 016 2024 Discontinued albuterol 108 (90 Base) MCG/ACT inhaler Inhale 2 puffs every 4 (four) hours if needed for shortness of breath or wheezing. 2024 Discontinued(R eorder) Active Problems Problem Noted Date Diagnosed Date Class 2 severe obesity due t o excess calories with serious comorbidity and body mass index (BMI) of 36.0 to 36.9 in adult 05/08/2024 Acute kidney injury (BOI) with acute tubular nec rosis (ATN) 04/09/2024 Chronic kidney disease-mineral and bone disorder (CKD-MBD) 04/09/2024 Elevated serum creatinine 04/08/2024 Foreign body (FB) in soft tissue 10/23/2023 Aortic regurgitation 10/23/2023 CAD (coronary artery disease) 10/23/2023 Diastolic dysfunction 10/23/2023 Dyspnea 10/23/2023 Abnormal result of cardiovascular function study 10/23/2023 HLD (hyperlipidemia) 10/23/2023 Renal cyst 09/26/2023 OAB (overactive bladder) 04/21/2023 Hyperplasia of prostate with lower urinary tract symptoms (LUTS) 09/17/2022 Overview (10/23/2023): Added automatically from request for surgery [id number] Bacterial pneumonia 05/09/2016 Pneumonia 04/04/2016 Renal insufficiency 03/16/2015 Hyponatremia 08/25/2014 BPH with urinary obstruction 06/01/2014 COPD (chronic obstructive pulmonary disease) High triglycerides 10/22/2012 ED (erectile dysfunction) 07/01/2012 T2DM (type 2 diabetes mellitus) 03/05/2011 Anxiety 05/29/2010 Colon polyp 10/14/2009 HTN (hypertension) 10/14/2009 Pure hypercholesterolemia 10/14/2009 Resolved Problems Problem Noted Date Diagnosed Date Resolved Date Lower urinary tract symptoms (LUTS) 06/08/2024 07/08/2024 Encounters Date Type Department Care Team Description 01/27/2025 4:20 PM EDT Office Visit [facility] Medicine Specialties [address] [place] [address] Alice Robbins MD Chronic obstructive pulmonary disease, unspecified COPD type (CMS/HCC) (Primary Dx) 01/27/2025 Travel 01/26/2025 Travel 11/12/2024 Orders Only [facility] Medicine [facility]ties [address] [place] [address] Alice Robbins MD Chronic obstructive pulmonary disease, unspecified COPD type (CMS/HCC) (Primary Dx); Bronchiectasis without complication (CMS/HCC) from Last 3 Months Immunizations Immunization Administration Dates Next Due Influenza, High-dose, Split Virus, Trivalent, Injectable, preservative free 03/16/2024,02/13/2023,03/03/2022,04/06,03/13/2019,03/07/2016,03/16/2015 Influenza, Unspecified 04/16/2013,03/12/2012,10/2010 Influenza, injectable, quadrivalent 02/12/2018,1 06/10/2016,02/24/2014 Pneumococcal 20-joni Conj Vaccine 03/03/2022 Pneumococcal Conjugate PCV 13 10/12/2015 Pneumococcal Polysaccharide PPV23 02/12/2018,09/2011 Zoster, live 07/24/2017,03/12/2012 Family History Medical History Relation Name Comments Stroke Other 1 Hypertension Other 2 Other cancer Other 3 Relation Name Status Comments Other 1 Other 2 Other 3 Social History Tobacco Use Types Packs/Day Years [...] on file Sexual Orientation Not on file Last Filed Vital Signs Vital Sign Reading [...] Mass Index 33.86 01/27/2025 4:15 PM EDT Plan of Treatment Upcoming Encounters Date Type Department Care Team (Late st Contact Info) Description 01/26/2026 1:00 PM EDT Office Visit [facility] Medicine Specialties [address] [place] [address] Alice Robbins MD [address] [place] [address] Health Maintenance Due Date Last Done Comments [facility]-Diabetes: Hemoglobin A1C 1950 [facility]-Hepatitis C Screening 1950 [facility]-Medicare Annual Wellness (AWV) 1950 [facility]-Infant/Child/Adol SDOH Screenings 1950 Diabetes: Dental Exam 12/26/1959 [facility]- SDOH Screenings 12/26/1967 [facility]-Adult SDOH Screenings 12/26/1967 [facility]-DTaP,Tdap,and Td Vaccines (1 - Tdap) 1968 CT Colonography 1994 Colonoscopy 1994 FIT-DNA 1994 FIT 1994 FOBT 1994 Sigmoidoscopy 1994 [facility]-Colorectal Cancer Screening 1994 [facility]-Zoster Vaccines (2 of 3) 09/18/2017 07/24/2017, 03/12/2012 [id number] Vaccine ( season) 2025 04/21/2021, 08/10/2020, 07/13/2020 [facility]-Influenza Vaccine (#1) 02/01/202503/16, 02/13/2023, 03/03/2022, Additional history exists [facility]-Depression Screening 07/08/2025 07/08/2024 [facility]-Pneumococcal Vaccine: 50+ Years Completed 03/03/2022, 02/12/2018, 10/12/2015, Additional history exists [facility]-RSV Vaccine: 60+ Years or Completed 06/01/2024 [facility]-Abdominal Aortic Aneurysm (AAA) Screening Completed 06/25/2024, 05/06/2024 [facility]-Obesity Intervention Completed 025, 11/06/2024, 07/08/2024, Additional history exists HPV Vaccines Aged Out No longer eligi ble based on patient's age to complete this topic [facility]-HIB Vaccines Aged Out No longer e ligible based on patient's age to complete this topic [facility]-Hepatitis A Vaccines Aged Out No longer eligible based on patient's age to complete this topic [facility]-IPV Vaccines Aged Out No longer e ligible based on patient's age to complete this topic [facility]-Rotavirus Vaccines Aged Out No lo nger eligible based on patient's age to complete this topic Insurance 1937 Jillian Odell [place] [id number] [employer] MEDICARE Care Teams Court Clerk Relationship Specialty Start Date End Date Obi Lock MD [address] [place] [address] PCP - General Internal Medicine 10/23/23
--- OUTSIDE RECORDS SUMMARY | 2025-02-10 07:11 | XMS_ITS | Encounter Summary ---
Author Organization [place] [address] Care Team Providers Care Bookkeeping Teacher Name Role Phone Ean Syed MD Primary Care Provider + Obi Lock MD Primary Care Provider [phone] Encounter Details Date Type Department Care Team (Late st Contact Info) Description 07/05/2015 Orders Only [facility] [address] [facility] [address] [place] [address] Rosalio Faye MD Social History Tobacco Use Types Packs/Day Years Used Date Smoking Tobacco: Every Day Cigarettes 0.8 50 Smokeless Tobacco: Never Alcohol Use Standard Drinks/Week Comments Yes 20 (1 standard drink = 0.6 oz pu re alcohol) Sex and Gender Information Value Date Recorded Sex Assigned at Not on file Legal Sex Male 3:52 PM EDT Gender Identity Not on file Sexual Orientation Not on file documented as of this encounter Plan of Treatment Not on file documented as of this encounter Procedures Procedure Name Priority Date/Time Associated Diagnosis Comments GMED COLONOSCOPY Routine 07/05/2015 12:0 0 PM EST documented in this encounter Results * GMED COLONOSCOPY (07/05/2015 12:00 PM EST) 07/05/2015 12:0 0 PM EST Impressions [facility] - 07/05/2015 12:25 PM EST Moderate diverticulosis of the sigmoid colon, descending colon, proximal transverse colon, hepatic flexure and distal ascending colon. The patient has a very redundant colon. . Several passes back and forth are made through the redundant areas, particularly the hepatic flexure, splenic flexure, and sigmoid colon. . Stool in the proximal sigmoid colon and descending colon. I irrigated the colon with copious amounts of H2O using the Olympus endopump to try to cleanse retained stool. . There is a viscous and some solid component to the residual stool that cannot be irrigated or suctioned clear. . Polyp (7 mm) in the mid-transverse colon. (Polypectomy). Otherwise normal colonoscopy. Plan: Colonoscopy in 3-5 years depending on pathology results. Annual hemoccult testing in your primary care doctor's office.(Beginning in 3 years) High Fiber Diet This section is an excerpt of the full report. us Rosalio Faye MD GI PROCEDURE ORDERABLES Eleanor ramachandran Result [address] [address] documented in this encounter Visit Diagnoses Not on filedocumented in this encounter Care Teams Bookkeeping Teacher Relationship Specialty Start Date End Date Ean Syed MD [address] [place] [address] PCP - General 06/22/09 04/30/17 Obi Lock MD [address] [place] [address] [address] [place] [address] PCP - General Internal Medicine-Adolescent Medicine 10/21/17 documented as of this encounter
--- OUTSIDE RECORDS SUMMARY | 2025-02-10 07:11 | XMS_ITS | Encounter Summary ---
Author Organization [facility] Address [address] [place] [address] Care Team Providers Care Clinical Instructor Name Role Phone Obi Lock MD Primary Care Provider + [phone] Encounter Details Date Type Department Care Team (Latest Contact Info) Description 01/27/2025 Travel Social History Tobacco Use Types Packs/Day Years [...] on file documented as of this encounter Functional Status * AUDIT-C Score [...] Priti Berry documented as of this encounter Plan of Treatment Upcoming Encounters Date Type Department Care Team (Late st Contact Info) Description 01/26/2026 1:00 PM EDT Office [facility] [address] [place] [address] Alice Robbins MD [address] [place] [address] documented as of this encounter Visit Diagnoses Not on filedocumented in this encounter Additional Health Concerns Assessment Noted Time A fall risk assessment has been complete d for the patient 01/27/2025 4:17 PM EDT A Body Mass Index follow-up plan has been documented for the patient 01/27/2025 4:52 PM EDT documented as of this encounter Care Teams Clinical Instructor Relationship Specialty Start Date End Date Obi Lock MD [address] [place] [address] PCP - General Internal Medicine 10/23/23 documented as of this encounter
--- OUTSIDE RECORDS SUMMARY | 2025-02-10 07:11 | XMS_ITS | Encounter Summary ---
Author Organization [facility] Address [address] [place] [address] Care Team Providers Care Special Education Professional Name Role Phone Obi Lock MD Primary Care Provider [phone] Encounter Details Date Type Department Care Team (Latest Contact Info) Description 01/26/2025 Travel Social History Tobacco Use Types Packs/Day Years Used Date Smoking Tobacco: Some Days Cigarettes 0.3 66.7 Started: 06/03/1958; Last attempted to quit: 01/02/2024 Passive Smoke Exposure: Past Smokeless Tobacco: [...] Description 01/26/2026 1:00 PM EDT Office Visit [facility] [address] [place] [address] Alice Robbins MD [address] [place] [address] documented as of this encounter Visit Diagnoses Not on filedocumented in this encounter Additional Health Concerns Assessment Noted Time A fall risk assessment has been complete d for the patient 07/08/2024 3:47 PM EST A Body Mass Index follow-up plan has been documented for the patient 11/06/2024 1:03 PM EDT documented as of this encounter Care Teams Special Education Professional Relationship Specialty Start Date End Date Obi Lock MD [address] [place] [address] PCP - General Internal Medicine 10/23/23 documented as of this encounter
--- OUTSIDE RECORDS SUMMARY | 2025-02-10 07:12 | XMS_ITS | Encounter Summary ---
Author Organization [facility] Address [address] [place] [address] Care Team Providers Care Stretcher And Drier Name Role Phone Obi Lock MD Primary Care Provider [phone] Encounter Details Date Type Department Care Team (Late st Contact Info) Description 03/23/2024 Telephone [facility] [address] [facility] [address] [place] [address] Tawanda Pires MD [address] [place] [address] Social History Tobacco Use Types Packs/Day Years Used Date Smoking Tobacco: Some Days Cigarettes 0.3 15 Passive Smoke Exposure: Current Smokeless Tobacco: Never Comments:Currently only smok e 2 or 3 a day Alcohol Use Standard Drinks/Week Comments Yes 0 (1 standard drink = 0.6 oz pur e alcohol) social Abuse Screen Answer Date Recorded Feels Unsafe at Home or Work/School no 09/24/2022 Feels Threatened by Someone no 09/02 Does Anyone Try to Keep You From Having Contact with Others or Doing Things Outside Your Home? no 09/24/2022 Physical Signs of Abuse Present no 09/24/2022 Housing Stability Answer Date Recorded Current Living Arrangements home 09/02 Potentially Unsafe Housing Conditions Not on shakila e 09/24/2022 Disabilities Answer Date Recorded Difficulty Concentrating, Remembering or Making Decisions no 09/24/2022 Difficulty Managing Errands Independently no 09/24/2022 Education Answer Date Recorded Help with school or training? Not on file Preferred Language Trinidadian 09/20/2022 Sex and Gender Information Value Date Recorded Sex Assigned at Not on file Legal Sex Male 10:02 AM EST Gender Identity Not on file Sexual Orientation Not on file documented as of this encounter Plan of Treatment Upcoming Encounters Date Type Department Care Team (Late st Contact Info) Description 06/11/2025 9:40 AM EST Office Visit [facility] [address] [facility] [address] [place] [address] Tawanda Pires MD [address] [facility] [address] [place], [place] [id number] documented as of this encounter Visit Diagnoses Not on filedocumented in this encounter Care Teams Stretcher And Drier Relationship Specialty Start Date End Date Obi Lock MD [address] [facility] [address] [place] [address] PCP - General Adolescent Medicine 07/19/22 documented as of this encounter
--- OUTSIDE RECORDS SUMMARY | 2025-02-10 07:12 | XMS_ITS | Encounter Summary ---
Author Organization [facility] Address [address] [place] [address] Care Team Providers Care Licensed Investment Sales Assistant Name Role Phone Obi Lock MD Primary Care Provider [phone] Reason for Referral * Consultation (Routine) - Closed Specialty Diagnoses / Procedures Referred By Contac t Referred To Contact Pulmonary Disease / Pulmonology Diagnoses Abnormal findings on imaging test Chronic cough Sweating increase Renal mass Obi Lock MD [address] [place] [address] Phone: tel: fax: Denny Ybarra MD [address] [facility] [address] [place] [address] Phone: tel: fax: Referral ID Status Reason Start Date Expiration Date V isits Requested Visits Authorized [id number] Closed Specialty Services Required 09/13/2023 03/14/2025 1 1 Encounter Details Date Type Department Care Team (Late st Contact Info) Description 09/13/2023 Community [facility] [address] [place] [address] Obi Lock MD [address] [facility] [address] [place] [address] Abnormal findings on imaging test (Primary Dx); Chronic cough; Sweating increase; Renal mass Social History Tobacco Use Types Packs/Day Years Used Date Smoking Tobacco: Every Day Alcohol Use Standard Drinks/Week Comments Yes 0 (1 standard drink = 0.6 oz pure alcohol) Alcoholic Drinks/day: Social alcohol use Sex and Gender Information Value Date Recorded Sex Assigned at Not on file Legal Sex Male 6:28 PM EDT Gender Identity Not on file Sexual Orientation Not on file documented as of this encounter Plan of Treatment Upcoming Encounters Date Type Department Care Team (Late st Contact Info) Description 01/26/2026 1:00 PM EDT Office Visit [facility] [address] [place] [address] Alice Robbins MD [address] [place] [address] Scheduled Referrals Name Type Priority Associated Diagnoses Order Schedule Ambulatory referral to Pulmonology Outpatient Referral Routine Abnormal findings on imaging test Chronic cough Sweating increase Renal mass Ordered: 09/13/2023 documented as of this encounter Visit Diagnoses Diagnosis Abnormal findings on imaging test- Primary Other nonspecific (abnormal) findings on radiological and other examinations of body structure Chronic cough Cough Sweating increase Generalized hyperhidrosis Renal mass Unspecified disorder of kidney and ureter documented in this encounter Additional Health Concerns Infection Onset Date Last Indicated Resolved Time Tuberculosis Rule-Out Comment:AFB cx for MAC, 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 No concern for TB 10/23/2023 10/23/2023 11/29/2023 9:39 AM E DT documented as of this encounter Care Teams Licensed Investment Sales Assistant Relationship Specialty Start Date End Date Obi Lock MD [address] [place] [address] PCP - General Internal Medicine 10/23/23 documented as of this encounter
--- OUTSIDE RECORDS SUMMARY | 2025-02-10 07:12 | XMS_ITS | Clinical Summary ---
[facility] Organization [facility] Address [address] [place] [address] Care Team Providers Care Cooker Cleaner Name Role Phone Obi Lock MD Primary Care Provider Allergies Active Allergy Reactions Criticality Noted Date Comments Iodinated Contrast Media Swelling High 02/02/2010 Hands and feet swelleduntil they cracked open Niacin Other (See Comments) 02/02/2010 Shook all over Medications Aspirin 81 MG capsule Take 81 mg by mouth. Active metoprolol tartrate (LOPRESSOR) 25 MG tablet Take 1 tablet by mouth 2 (Two) Times a Day. 3 Active ipratropium-alb uterol (DUO-NEB) 0.5-2.5 mg/3 ml nebulizer 3 Active Trelegy Ellipta 100-62.5-25 MCG/ACT inhaler 3 Active fluticasone (FLONASE) 50 MCG/ACT nasal spray Daily As Needed. 3 Active Farxiga 10 MG tablet Daily. 3 Active buPROPion XL (WELLBUTRIN XL) 150 MG 24 hr tablet 3 Active benzonatate (TESSALON) 100 MG capsule Take 1 capsule by mouth Daily As Needed for Cough. 3 Active atorvastatin (LIPITOR) 80 MG tablet 3 Active metFORMIN (GLUCOPHAGE) 1000 MG tablet Take 1 tablet by mouth Daily With Breakfast. 3 Active albuterol sulfate HFA 108 (90 Base) MCG/ACT inhaler Inhale 2 puffs Every 4 (Four) Hours As Needed for Wheezing or Shortness of Air. Active promethazine-de xtromethorphan (PROMETHAZINE-D M) 6.25-15 MG/5ML solution Take by mouth 4 (Four) Times a Day As Needed for Cough. Active polyethylene glycol (MIRALAX) 17 g packet Take 17 g by mouth Daily. Active Methylcellulose , Laxative, (CITRUCEL PO) Take by mouth Daily. Active levocetirizine (XYZAL) 5 MG tablet 3 Active Januvia 100 MG tablet Take 1 tablet by mouth Daily. Active Vibegron 75 MG tabletIndicatio ns:OAB (overactive bladder) Take 1 tablet by mouth Daily. 30 tablet 2 3 Active tamsulosin (FLOMAX) 0.4 MG capsule 24 hr capsule Daily. Active Brooks-3 Fatty Acids (fish oil) 1000 MG capsule capsule Daily. Acti ve ascorbic acid (VITAMIN C) 1000 MG tablet Take 1 tablet by mouth Daily. Active Semaglutide (Rybelsus) 3 MG tablet Daily. 4 Active losartan (COZAAR) 50 MG tablet Take 1 tablet by mouth Daily. 4 Active memantine (NAMENDA) 5 MG tablet Every 12 (Twelve) Hours. 4 Active Active Problems Problem Noted Date Diagnosed Date Lower urinary tract symptoms (LUTS) 06/08/2024 Renal cyst 09/26/2023 OAB (overactive bladder) 04/21/2023 Hyperplasia of prostate with lower urinary tract symptoms (LUTS) 09/17/2022 Overview (09/17/2022): Added automatically from request for surgery [id number] Immunizations Immunization Administration Dates Next Due 31-influenza Vac Quardvalent Preservativ 02/24/2014 COVID-19 (MODERNA) 1st,2nd,3 rd Dose Monovalent 04/21/2021,08/10/2020,07/13/2020 Flu Vaccine Quad PF >36MO 02/12/2018,04/10/2017, 02/24/2014 Fluzone High-Dose 65+YRS 03/03/2022,11/0 09/2019,03/13/2019,03/07,03/16/2015 Influenza, Unspecified 04/16/2013,03/12/2012,10/2010 Pneumococcal Conjugate 13-Va lent (PCV13) 10/12/2015 Pneumococcal Conjugate 20-Va lent (PCV20) 03/03/2022 Pneumococcal Polysaccharide (PPSV23) 02/12/2018, 01/05/2012 Zostavax 07/24/2017,03/12/2012 Family History Medical History Relation Name Comments Hypertension Father Yunier Flanagan Cancer Maternal Aunt Maddie Lee Cancer Mother Kristen Linares Relation Name Status Comments Father Yunier Flanagan Maternal Aunt Maddie Lee Mother Kristen Linares Social History Tobacco Use Types Packs/Day Years Used Date Smoking Tobacco: Some Days Cigarettes 0.3 15 Passive Smoke Exposure: Current Smokeless Tobacco: Never Tobacco Cessation:Ready to Q uit: Not Asked; Counseling Given: No Comments:Currently only smoke 2 or 3 a day Alcohol Use [...] or training? Not on file Preferred Language Georgian 09/20/2022 Sex and Gender Information Value Date Recorded Sex Assigned at Not on file Legal Sex Male 10:02 AM EST Gender Identity Not on file Sexual Orientation Not on file Last Filed Vital Signs Vital Sign Reading Time Taken Comments Blood Pressure 159/95 09/24/2022 12:30 PM EDT Pulse 75 09/24/2023 9:47 AM EDT Temperature 36.2 C (97.2 F) 09/24/2022 11:45 AM EDT Respiratory Rate 18 09/24/2022 11:45 AM EDT Oxygen Saturation 98% 09/24/2023 9:47 AM EDT Inhaled Oxygen Concentration - - Weight 108 kg (238 lb) 09/24/2023 9:47 AM EDT Height 175.3 cm (5' 9.02 ) 09/24/2023 9:47 AM ED T Body Mass Index 35.13 09/24/2023 9:47 AM EDT Plan of Treatment Upcoming Encounters Date Type Department Care Team (Late st Contact Info) Description 06/11/2025 9:40 AM EST Office Visit [facility] [address] [place] [address] Tawanda Pires MD [address] [place] [address] Health Maintenance Due Date Last Done Comments DIABETIC EYE EXAM 12/26/1960 DIABETIC FOOT EXAM 12/26/1960 URINE MICROALBUMIN-CREATININ E RATIO (uACR) 12/26/1959 TDAP/TD VACCINES (1 - Tdap) 1968 COLOGUARD 1994 COLON CANCER SCREENING 5 YEA R SIGMOIDOSCOPY 1994 CT COLONOGRAPHY 1994 FECAL OCCULT BLOOD TEST 1994 FIT Testing (1 year) 1994 AAA SCREEN ONCE 2014 ZOSTER VACCINE (2 of 3) 09/18/2017 07/24/2017, 03/12 ANNUAL WELLNESS VISIT 08/08/2022 HEMOGLOBIN A1C 08/08/2022 HEPATITIS C SCREENING 08/08/2022 RSV Vaccine - Adults (1 - 1- dose 75+ series) 2024 COVID-19 Vaccine (4 - 2024-2 6 season) 2025 04/21/2021, 08/10/2020, 07/13/2020 INFLUENZA VACCINE 03/03/2025 03/16/2024, , 03/03/2022, Additional history exists COLONOSCOPY 07/05/2025 07/05/2015 COLORECTAL CANCER SCREENING 07/05/2025 Pneumococcal Vaccine 50+ Completed 022, 02/12/2018, 10/12/2015, Additional history exists Insurance 1937 [address] [place] [id number] [facility] MEDICARE ADVANTAGE PPO Care Teams Cooker Cleaner Relationship Specialty Start Date End Date Obi Lock MD [address] [facility] [address] [place] [id number] PCP - General Adolescent Medicine 07/19/22
--- OUTSIDE RECORDS SUMMARY | 2025-02-10 07:12 | XMS_ITS | Clinical Summary ---
Author Organization [facility] Address [address] [place] [address] Phone Care Team Providers Care Plasterer Helper Name Role Phone Obi Lock MD Primary Care Provider Allergies Active Allergy Reactions Criticality Noted Date Comments Iodinated Contrast Media Swelling High 02/02/2010 Hands and feet swelleduntil they cracked open Niacin Other (See Comments) 02/02/2010 Shook all over Medications aspirin 325 mg Take 325 mg by mouth nightly. Active Cholecalciferol, Vitamin D3, (VITAMIN D) 2,000 unit CapIndications:Vitamin D deficiency Take 1 Cap by mouth daily. 30 Cap 11 03/05/20 11 Active albuterol (PROAIR HFA) 90 mcg/actuation Inhl HFA Aerosol InhalerIndications:Pulm onary emphysema, unspecified emphysema type (HCC) Inhale 2 Puffs into the lungs every 6 hours as needed for Wheezing. for wheezing 3 Inhaler 3 03/16/20 15 Active fenofibrate micronized (LOFIBRA) 200 mg Oral CapsuleIndications:High triglycerides,Pure hypercholesterolemia Take 1 Cap by mouth every morning (before breakfast). 90 Cap 3 10/12/19 16 Active lisinopril (PRINIVIL;ZESTRIL) 20 mg Oral TabletIndications:Secon dangelo hypertension, unspecified Take 1 Tab by mouth daily. 90 Tab 3 10/12/19 16 Active metFORMIN (GLUCOPHAGE) 1,000 mg Oral TabletIndications:Type 2 diabetes mellitus without complication (HCC) Take 1 Tab by mouth daily (with breakfast). 90 Tab 3 10/12/19 16 Active metoprolol (LOPRESSOR) 25 mg Oral TabletIndications:Shelbi pierson hypertension, unspecified Take 1 Tab by mouth daily. 90 Tab 3 10/12/19 16 Active tamsulosin (FLOMAX) 0.4 mg Oral Capsule, Sust. Release 24 hrIndications:BPH with urinary obstruction Take 1 Cap by mouth nightly. 90 Cap 3 10/12/19 16 Active tiotropium (SPIRIVA WITH HANDIHALER) 18 mcg Inhl Capsule, w/Inhalation DeviceIndications:Pulmo nary emphysema, unspecified emphysema type (HCC) inhale the contents of one capsule in the handihaler once daily 30 Cap 5 03/07/20 16 Active atorvastatin (LIPITOR) 80 mg Oral TabletIndications:Pure hypercholesterolemia Take 1 Tab by mouth daily. 30 Tab 11 03/07/20 16 Active Active Problems Patient Care Coordination No te Formatting of this note migh t be different from the original. PHQ-9: 10/23/12 Score: 10 Problem Noted Date Diagnosed Date Renal insufficiency 03/16/2015 Hyponatremia 08/25/2014 Screening PSA (prostate specific antigen) 2013 BPH with urinary obstruction 06/01/2014 COPD (chronic obstructive pulmonary disease) Tobacco use 05/31/2013 High triglycerides 10/22/2012 ED (erectile dysfunction) 07/01/2012 T2DM (type 2 diabetes mellitus) 03/05/2011 Anxiety 05/29/2010 Pure hypercholesterolemia 10/14/2009 HTN (hypertension) 10/14/2009 Colon polyp 10/14/2009 Immunizations Immunization Administration Dates Next Due Influenza High Dose 03/07/2016,03/16/2015 Influenza Vaccine Quadrivalent 02/24/2014 Influenza Vaccine, Unspecified Formulation 04/16,03/12/2012,03/07/2011 Pneumococcal Conjugate Vaccine 13 Valent 016 Pneumococcal Polysaccharide 23 Valent 01/05/2012 Zoster 03/12/2012 Surgical History Surgery Date Site/Laterality Comments ROTATOR CUFF REPAIR 2008 B/L SHOULDERS HERNIA REPAIR SHOULDER SURGERY CARDIAC SURGERY october 2010 pt states they closed a hole in my heart Medical History Medical History Date Comments Arthritis Syncope and collapse COPD (chronic obstructive pulmonary disease) (HC C) Hyperlipemia HTN (hypertension) Depression Anxiety 05/29/2010 T2DM (type 2 diabetes mellitus) (HCC) 03/05/2011 Renal insufficiency 03/16/2015 Family History Medical History Relation Name Comments High Blood Pressure Brother Diabetes Father High Blood Pressure Father Cancer Mother Diabetes Mother High Blood Pressure Mother High Blood Pressure Sister Relation Name Status Comments Brother Father Mother Sister Social History Tobacco Use Types Packs/Day Years Used Date Smoking Tobacco: Every Day Cigarettes 0.8 50 Smokeless Tobacco: Never Tobacco Cessation:Ready to Q uit: Yes Alcohol Use Standard Drinks/Week Comments Yes 20 (1 standard drink = 0.6 oz pu re alcohol) Sex and Gender Information Value Date Recorded Sex Assigned at Not on file Legal Sex Male 3:52 PM EDT Gender Identity Not on file Sexual Orientation Not on file Obstetrics History Last Filed Vital Signs Vital Sign Reading Time Taken Comments Blood Pressure 120/60 03/07/2016 10:10 AM EDT Pulse 87 03/07/2016 10:10 AM EDT Temperature 36.4 C (97.6 F) 03/07/2016 10:10 AM EDT Respiratory Rate 10 03/07/2016 10:10 AM EDT Oxygen Saturation 94% 03/07/2016 10:10 AM EDT Inhaled Oxygen Concentration - - Weight 100.2 kg (221 lb) 03/07/2016 10:10 AM EDT Height 175.3 cm (5' 9 ) 03/07/2016 10:10 AM EDT Body Mass Index 32.64 03/07/2016 10:10 AM EDT Plan of Treatment Health Maintenance Due Date Last Done Comments Wellness Exam Medicare 1953 Diabetic Eye Exam 12/26/1967 Hepatitis C Screening 12/26/1967 DTaP/TDaP/Td (1 - Tdap) 1968 Cologuard 1994 FIT 1994 Sigmoidoscopy 1994 Virtual Colonography 1994 Zoster (2 of 3) 05/07/2012 03/12/2012 Low Dose Lung Cancer Screening 04/10/2013 04/10/2012, 01/05/2012, 08/03/2010 AAA Screening 2014 Kidney Health: uACR 03/07/2016 03/07/2015, 08/18/2014, 10/14/2012 Hemoglobin A1c 08/19/2016 02/20/2016, 04/, 03/07/2015, Additional history exists Kidney Health: eGFR 02/19/2017 02/20/2016, 09/21/2015, 03/07/2015, Additional history exists Lipids 02/19/2017 02/20/2016, 02/01, 09/21/2015, Additional history exists Colon Cancer Screening 07/05/2018 Colonoscopy 07/05/2018 07/05/2015, 11/02, 06/29/2009 Pneumococcal Vaccine 50+ (3 of 3 - PCV20 or PCV21) 10/11/2020 10/12/2015, 01/05/2012 RSV or 60+ (1 - 1-dose 75+ series) 2024 COVID-19 Vaccine ( - season) 2025 Influenza Vaccine (#1) 2025 6, 03/16/2015, 02/24/2014, Additional history exists Hepatitis B Vaccine Aged Out No longe r eligible based on patient's age to complete this topic Meningococcal B Vaccine Aged Out No l onger eligible based on patient's age to complete this topic Goals Goal Patient Goal Type Associated Problems Recent Progress Patient-Stated? Author Blood Pressure < 140/90 Blood Pressure 120/60(2015 10:10 AM EDT) No Delaney Sesay MA BMI (Calculated) < 30 General 32.7(03/07/20 16 10:10 AM EDT) No Delaney Sesay MA Maintain a healthy diet, exercise regularly and maintain an ideal body weight General No Delaney Sesay MA Stay Tobacco Free Lifestyle No Delaney Sesay MA HEMOGLOBIN A1C < 7.0 Result Component 6.1( 6 10:33 AM EDT) No Delaney Sesay MA Procedures Procedure Name Priority Date/Time Associated Diagnosis Comments COMPREHENSIVE METABOLIC PANEL Routine 02/20/2016 10:33 AM EDT High triglycerides Type 2 diabetes mellitus without complication (HCC) LIPID PANEL REFLEX Routine 02/20/2016 10 :33 AM EDT High triglycerides HEMOGLOBIN A1C Routine 02/20/2016 10:33 AM EDT Type 2 diabetes mellitus without complication (HCC) GMED COLONOSCOPY Routine 07/05/2015 12:0 0 PM EST MICROALBUMIN/CREATINI NE RATIO URINE Routine 03/07/2015 7:40 AM EDT Type 2 diabetes mellitus without complication (HCC) CT CHEST WO CONTRAST Routine 04/10/2012 2:20 PM EST Pneumonia from Last 3 Months or Most Recently Relevant to Health Maintenance Results * (ABNORMAL) LIPID PANEL REFLEX (02/20/2016 10:33 AM EDT) Cholesterol 222(H) <=200 mg/dL [facility] Comment: < 200 Desirable 200 - 239 Borderline High >= 240 High Triglyceride 198(H) <=150 mg/dL [facility] Comment: < 150 Normal 150 - 199 Borderline High 200 - 499 High >= 500 Very High HDL 42 >=40 mg/dL [facility] Comment: > 60 Optimal 40 - 60 Acceptable < 40 Low Blood specimen (specimen) UPPER LIMB STRUCTURE / Unknown 02/20/2016 10:33 AM EDT 02/20/2016 2:05 PM EDT us Jayy Wheeler MD CHEMISTRY ORDERABLES Final Resul t Performing Organization Address [facility] de Phone Number [facility] [address] [place] [address] * HEMOGLOBIN A1C (02/20/2016 10:33 AM EDT) Hgb A1c 6.1 <=7.0 % [facility] Comment: Reference Interval for Hgb A1c Hgb A1c Interpretation < 6.0 Non-Diabetic Range 6.0 - 7.0 ADA Therapeutic Target > 7.0 Action suggested Blood specimen (specimen) UPPER LIMB STRUCTURE / Unknown 02/20/2016 10:33 AM EDT 02/20/2016 2:09 PM EDT us Jayy Wheeler MD CHEMISTRY ORDERABLES Final Resul t Performing Organization Address [facility]/State/ZIP Co de Phone Number [facility] [address] [place] [address] * (ABNORMAL) COMPREHENSIVE METABOLIC PANEL (02/20/2016 10:33 AM EDT) Sodium 139 136 - 145 mmol/L [facility] Potassium 4.5 3.5 - 5.0 mmol/L [facility] Chloride 100 98 - 107 mmol/L [facility] Total CO2 26 22 - 29 mmol/L [facility] Anion Gap 13 7 - 16 mmol/L [facility] Calcium 9.9 8.8 - 10.2 mg/dL [facility] Glucose Lvl 104(H) 82 - 100 mg/dL [facility] BUN 17 8 - 23 mg/dL [facility] Creatinine 1.26 0.67 - 1.30 mg/dL [facility] Albumin 4.7(H) 3.2 - 4.6 gm/dL [facility] Total Protein 7.1 6.4 - 8.3 gm/dL [facility] Bili Total 0.4 0.1 - 1.4 mg/dL [facility] AST 22 <=40 IU/L [facility] ALT 21 <=41 IU/L [facility] Alk Phos 44 40 - 129 IU/L [facility] GFR Afr Am >60 [facility] GFR Non Afr Am 57 [facility] Blood specimen (specimen) UPPER LIMB STRUCTURE / Unknown 02/20/2016 10:33 AM EDT 02/20/2016 2:05 PM EDT us Jayy Wheeler MD CHEMISTRY ORDERABLES Edited Resu lt - Final [facility] [address] [place] [address] * GMED COLONOSCOPY (07/05/2015 12:00 PM EST) 07/05/2015 12:0 0 PM EST Impressions [facility] - 07/05/2015 12:25 PM EST Moderate [...] Rosalio Faye MD GI PROCEDURE ORDERABLES Eleanor l Result Performing Organization Address [facility] de Phone Number [facility] [address] [place] [address] * (ABNORMAL) MICROALBUMIN/CREATININE RATIO URINE (03/07/2015 7:40 AM EDT) Urine Microalb 53.0 mg/L [facility] Urine Creatinine 38.2 mg/dL [facility] Ur Microalb/Creat 139(H) 0 - 20 mg/gm [facility] Urine specimen (specimen) 03/07/2015 7:40 AM EDT 03/07/2015 2:08 PM EDT Jayy Wheeler MD URINE ORDERABLES Edited Result - Final Performing Organization Address [facility] de Phone Number [facility] [address] [place] [address] * CT CHEST WO CONTRAST (04/10/2012 2:20 PM EST) Anatomical Region Laterality Modality Chest Computed Tomogra phy 04/10/2012 Impressions 04/10/2012 4:02 PM EST IMPRESSION: 1. Asymmetric mild irregular peripheral scarring and central clustered air- filled cystic changes left lower lobe. No acute pneumonia. 2. Biapical pleural parenchymal scarring and peripheral cystic changes, right greater than left. Narrative 04/10/2012 4:[address] without contrast: 04/10/2012. COMPARISON: 01/05/2012, 08/03/2010 and 04/20/2006. INDICATION: 61-year-old with recurrent pneumonia. TECHNICAL FACTORS: 5 mm axial images obtained from lung apices through symphysis pubis. No contrast given due to allergy to iodine. Coronal and sagittal reconstructed images obtained. FINDINGS: Trachea and proximal bronchial airways are patent. There are localized air- filled cystic changes clustered in central left lower lobe. Small irregular areas of scarring are noted posterior lateral lower lung periphery. Most recent prior infiltrate has resolved. There are no pulmonary masses. There is biapical mild pleural parenchymal scar with subpleural air-filled cystic changes, right greater than left. There is minimal spotty biapical centrilobular emphysema. Calcified granulomas are in paratracheal and right hilar locations. No enlarged or suspicious mediastinal or hilar lymph nodes. ASD closure device noted. Included images of upper abdomen show scattered diverticula of splenic flexure. Degenerative changes involve thoracic endplates. Procedure Note Yelitza Meier MD - 04/10/[address] without contrast: 04/10/2012. COMPARISON: 01/05/2012, 08/03/2010 and 04/20/2006. INDICATION: 61-year-old with recurrent pneumonia. TECHNICAL FACTORS: 5 mm axial images obtained from lung apices throughsymphysis pubis. No contrast given due to allergy to iodine. Coronal and sagittalreconstructed images obtained. FINDINGS: Trachea and proximal bronchial airways are patent. There are localizedair-filled cystic changes clustered in central left lower lobe. Small irregular areas ofscarring are noted posterior lateral lower lung periphery. Most recent prior infiltrate hasresolved. There are no pulmonary masses. There is biapical mild pleural parenchymal scar withsubpleural air-filled cystic changes, right greater than left. There is minimal spotty biapicalcentrilobular emphysema. Calcified granulomas are in paratracheal and right hilar locations. Noenlarged or suspicious mediastinal or hilar lymph nodes. ASD closure device noted. Included images of upper abdomen show scattered diverticula of splenicflexure. Degenerative changes involve thoracic endplates. IMPRESSION: 1. Asymmetric mild irregular peripheral scarring and central clusteredair-filled cystic changes left lower lobe. No acute pneumonia. 2. Biapical pleural parenchymal scarring and peripheral cystic changes,right greater than left. Ean Paz DO IMG CT ORDERABLES Final Resul t from Last 3 Months or Most Recently Relevant to Health Maintenance Insurance MEDICARE [place] PART A AND B MEDICARE SELECT SU[employer]LEMENT MEDICARE [place] PART A AND B MEDICARE [employer] SU[employer]MENT Advance Directives For more information, please contact: [phone] * Full Code (Latest Code Status on File) Date Activated Date Inactivated Comments 01/04/2012 1:39 PM 01/07/2012 1:07 PM Care Teams Plasterer Helper Relationship Specialty Start Date End Date Obi Lock MD [address] [place] [address] [place] [phone] PCP - General Internal Medicine-Adolescent Medicine 10/21/17
--- OUTSIDE RECORDS SUMMARY | 2025-02-10 07:12 | XMS_ITS | Encounter Summary ---
Author Organization [place] [address] Care Team Providers Care Crackling Press Operator Name Role Phone Ean Syed MD Primary Care Provider + bOi Lock MD Primary Care Provider [phone] Encounter Details Date Type Department Care Team (Late st Contact Info) Description 11/21/2011 Orders Only [facility] [address] [place] [address] Rosalio Faye MD Social History Tobacco Use Types Packs/Day Years Used Date Smoking Tobacco: Every Day Cigarettes 2 40 Smokeless Tobacco: Never Alcohol Use Standard Drinks/Week Comments Yes 5 (1 standard drink = 0.6 oz pur e alcohol) Sex and Gender Information Value Date Recorded Sex Assigned at Not on file Legal Sex Male 3:52 PM EDT Gender Identity Not on file Sexual Orientation Not on file documented as of this encounter Plan of Treatment Not on file documented as of this encounter Procedures Procedure Name Priority Date/Time Associated Diagnosis Comments GMED COLONOSCOPY Routine 11/21/2011 12:0 0 AM EDT documented in this encounter Results * GMED COLONOSCOPY (11/21/2011 12:00 AM EDT) 11/21/2011 Impressions [facility] - 11/21/2011 10:30 AM EDT The patient has a very redundant colon. Diverticulosis of the sigmoid colon and distal descending colon Polyp at 50cm in the descending colon (polypectomy) Otherwise normal colonoscopy to cecum Narrative [facility] - 11/21/2011 10:30 AM EDT Performing Provider: Rosalio Guenthner, M.D. Referring Provider: Shaun Syed MD us Rosalio Faye MD GI PROCEDURE ORDERABLES Eleanor l Result [facility] [address] [place] [id number] documented in this encounter Visit Diagnoses Not on filedocumented in this encounter Care Teams Crackling Press Operator Relationship Specialty Start Date End Date Ean Syed MD [address] [place] [address] PCP - General 06/22/09 04/30/17 Obi Lock MD [address] [place] [address] [address] [place] [phone] PCP - General Internal Medicine-Adolescent Medicine 10/21/17 documented as of this encounter
--- OUTSIDE RECORDS SUMMARY | 2025-02-10 07:12 | XMS_ITS | Patient Health Record ---
Author Organization [facility] D LUC[facility] Address [address] [place] [address] Care Team Providers Care Editor Continuity And Script Name Role Phone Obi Lock Primary Care Provider Migration, Provider Unavailable Unavailable Allergies Allergen (clinical drug ingredient) Drug/Non Drug Allergy documented on EMR Reaction Allergy Type Onset Date Status IV DYE (uncoded) Hands and feet swelling Allergy Active niacin Niacin Shook all over Drug Allergy Ac tive Results Component Value Reference Range Notes THYROID PANEL WITH TSH (5644 ) Reviewed date:08/22/2024 02:04:47 PM Interpretation: Performing Lab:CB, [facility] [place] Flores Notes/Report: NON-FASTING; NON-FASTING; NON-FASTING; NON-FASTING T3 UPTAKE 29 22-35 % T4 (THYROXINE), TOTAL 7.0 4.9-10.5 mcg/dL FREE T4 INDEX (T7) 2.0 1.4-3.8 TSH 4.43 0.40-4.50 mIU/L QUEST AD DETECT(TM), BETA AM YLOID 42/40 RATIO, P ([id number]) Reviewed date:05/13/2024 02:19:00 PM Interpretation: Performing Lab:EZ, [facility],[address] [facility], [facility] HospitalXkwlatpstdWT[address] Yesi Del Rio MD,PhD,JUDY Notes/Report: NON-FASTING ABETA 42 68 Reference Range: NOT ESTABLISHED ABETA 40 544 Reference Range: NOT ESTABLISHED ABETA 42/40 RATIO 0.125 > OR = 0.170 Higher Risk: <0.150 The concentrations on this report only represent wild type Abeta 40 and 42. The variants of Abeta 40 and 42 are not detected in this assay. This test was developed and its analytical performance characteristics have been determined by [employer]. It has not been cleared or approved by FDA. This assay has been validated pursuant to the CLIA regulations and is used for clinical purposes. Plasma beta-amyloid 42/40 ratio Risk Table: Risk of Alzheimer's Disease: Lower Risk: > or = 0.170 Intermediate Risk: 0.150 - 0.169 Echocardiogram - Bubble Stud y Reviewed date:05/04/2024 03:26:29 PM Interpretation: Performing Lab: Notes/Report: DEMENTIA PANEL, MERON(KAYLA) ([id number]) Reviewed date:05/13/2024 02:19:00 PM Interpretation: Performing Lab:[facility] [employer] [facility]-Jcarlos Abrahame[address] [facility], [place] DktnDK[address] Everett Flores Notes/Report: NON-FASTING GLUCOSE 189 65-99 mg/dL Fasting reference interval For someone without known diabetes, a glucose value >125 mg/dL indicates that they may have diabetes and this should be confirmed with a follow-up test. UREA NITROGEN (BUN) 23 7-25 mg/dL CREATININE 1.85 0.70-1.28 mg/dL EGFR 38 > OR = 60 mL/min/1.73m2 BUN/CREATININE RATIO 12 6-22 (calc) SODIUM 136 135-146 mmol/L POTASSIUM 5.1 3.5-5.3 mmol/L CHLORIDE 98 98-110 mmol/L CARBON DIOXIDE 23 20-32 mmol/L CALCIUM 9.8 8.6-10.3 mg/dL PROTEIN, TOTAL 7.9 6.1-8.1 g/dL ALBUMIN 4.5 3.6-5.1 g/dL GLOBULIN 3.4 1.9-3.7 g/dL (calc) ALBUMIN/GLOBULIN RATIO 1.3 1.0-2.5 (calc) BILIRUBIN, TOTAL 0.5 0.2-1.2 mg/dL ALKALINE PHOSPHATASE 92 35-144 U/L AST 26 10-35 U/L ALT 44 9-46 U/L WHITE BLOOD CELL COUNT 8.6 3.8-10.8 Thousand/ uL RED BLOOD CELL COUNT 5.48 4.20-5.80 Million/uL HEMOGLOBIN 16.4 13.2-17.1 g/dL HEMATOCRIT 48.8 38.5-50.0 % MCV 89.1 80.0-100.0 fL MCH 29.9 27.0-33.0 pg MCHC 33.6 32.0-36.0 g/dL For adults, a slight decrease in the calculated MCHC value (in the range of 30 to 32 g/dL) is most likely not clinically significant; however, it should be interpreted with caution in correlation with other red cell parameters and the patient's clinical condition. RDW 13.0 11.0-15.0 % PLATELET COUNT 232 140-400 Thousand/uL MPV 9.9 7.5-12.5 fL ABSOLUTE NEUTROPHILS 4721 1609-8195 cells/uL ABSOLUTE LYMPHOCYTES 3010 850-3900 cells/uL ABSOLUTE MONOCYTES 697 200-950 cells/uL ABSOLUTE EOSINOPHILS 95 15-500 cells/uL ABSOLUTE BASOPHILS 77 0-200 cells/uL NEUTROPHILS 54.9 LYMPHOCYTES 35.0 MONOCYTES 8.1 EOSINOPHILS 1.1 BASOPHILS 0.9 TSH 4.95 0.40-4.50 mIU/L VITAMIN B12 521 142-2264 pg/mL FOLATE, SERUM 9.9 Reference Range Low: <3.4 Borderline: 3.4-5.4 Normal: >5.4 COMMENT If a patient with suspected dementia has a history of risk factors for sexually transmitted infections, blood testing for syphilis and human immunodeficiency virus (HIV) infection should be considered. For information on advanced diagnostic testing for dementia including Alzheimer's Disease please click on Frequently Asked Questions (FAQs) or visit the following link http://education.Within3.[employer]/faq/FAQ88 Enhanced report to follow. COMPREHENSIVE METABOLIC JEFFREY Michelle ([id number]) Reviewed date:08/22/2024 02:04:48 PM Interpretation: Performing Lab:S[facility]ANT [employer] Shyla-Jcarlos Zpvy[address] [facility], Jcarlos AbrahamEmrlUK[address] Everett Flores Notes/Report: NON-FASTING; NON-FASTING; NON-FASTING; NON-FASTING GLUCOSE 450 65-99 mg/dL Verified by repeat analysis. Fasting reference interval For someone without known diabetes, a glucose value >125 mg/dL indicates that they may have diabetes and this should be confirmed with a follow-up test. UREA NITROGEN (BUN) 20 7-25 mg/dL CREATININE 1.37 0.70-1.28 mg/dL EGFR 54 > OR = 60 mL/min/1.73m2 BUN/CREATININE RATIO 15 6-22 (calc) SODIUM 132 135-146 mmol/L POTASSIUM 4.6 3.5-5.3 mmol/L CHLORIDE 92 98-110 mmol/L CARBON DIOXIDE 27 20-32 mmol/L CALCIUM 9.8 8.6-10.3 mg/dL PROTEIN, TOTAL 7.3 6.1-8.1 g/dL ALBUMIN 4.4 3.6-5.1 g/dL GLOBULIN 2.9 1.9-3.7 g/dL (calc) ALBUMIN/GLOBULIN RATIO 1.5 1.0-2.5 (calc) BILIRUBIN, TOTAL 0.8 0.2-1.2 mg/dL ALKALINE PHOSPHATASE 99 35-144 U/L AST 21 10-35 U/L ALT 31 9-46 U/L CBC (INCLUDES DIFF/PLT) (639 9) Reviewed date:08/22/2024 02:04:48 PM Interpretation: Performing Lab:CB, [facility] [address], [facility] HealthYqvhHG[address] Everett Flores Notes/Report: NON-FASTING; NON-FASTING; NON-FASTING; NON-FASTING WHITE BLOOD CELL COUNT 8.5 3.8-10.8 Thousand/ uL RED BLOOD CELL COUNT 5.53 4.20-5.80 Million/uL HEMOGLOBIN 16.5 13.2-17.1 g/dL HEMATOCRIT 50.3 38.5-50.0 % MCV 91.0 80.0-100.0 fL MCH 29.8 27.0-33.0 pg MCHC 32.8 32.0-36.0 g/dL condition. For adults, a slight decrease in the calculated MCHC value (in the range of 30 to 32 g/dL) is most likely not clinically significant; however, it should be interpreted with caution in correlation with other red cell parameters and the patient's clinical RDW 12.0 11.0-15.0 % PLATELET COUNT 201 140-400 Thousand/uL MPV 10.3 7.5-12.5 fL ABSOLUTE NEUTROPHILS 4641 6853-0548 cells/uL ABSOLUTE LYMPHOCYTES 3145 850-3900 cells/uL ABSOLUTE MONOCYTES 587 200-950 cells/uL ABSOLUTE EOSINOPHILS 60 15-500 cells/uL ABSOLUTE BASOPHILS 68 0-200 cells/uL NEUTROPHILS 54.6 LYMPHOCYTES 37.0 MONOCYTES 6.9 EOSINOPHILS 0.7 BASOPHILS 0.8 HEMOGLOBIN A1c (496) Reviewed date:08/22/2024 02:04:48 PM Interpretation: Performing Lab:SUSHANT [facility] Arzn[address] [facility] Everett Flores Notes/Report: NON-FASTING; NON-FASTING; NON-FASTING; NON-FASTING HEMOGLOBIN A1c >14.0 <5.7 % of total Hgb For someone without known diabetes, a hemoglobin [...] A1c for diagnosis of diabetes for children. Verified by repeat analysis. Microalbumin (In-House) Reviewed date:10/21/2024 11:46:44 AM Interpretation: Performing Lab: Notes/Report: ALB 150 CRE 50 A:C >300 COMPREHENSIVE METABOLIC PANE L ([id number]) Reviewed date:03/12/2024 01:41:57 PM Interpretation: Performing Lab:[facility]USHANT [facility] Yibz[address] [facility] HealthZfwiJK[address] Everett Flores Notes/Report: NON-FASTING; NON-FASTING; NON-FASTING GLUCOSE 121 65-99 mg/dL between 100 and 125 mg/dL is consistent with prediabetes and should be confirmed with a follow-up test. Fasting reference interval For someone without known diabetes, a glucose value UREA NITROGEN (BUN) 21 7-25 mg/dL CREATININE 2.60 0.70-1.28 mg/dL EGFR 25 > OR = 60 mL/min/1.73m2 BUN/CREATININE RATIO 8 6-22 (calc) SODIUM 140 135-146 mmol/L POTASSIUM 4.7 3.5-5.3 mmol/L CHLORIDE 101 98-110 mmol/L CARBON DIOXIDE 26 20-32 mmol/L CALCIUM 9.2 8.6-10.3 mg/dL PROTEIN, TOTAL 7.2 6.1-8.1 g/dL ALBUMIN 4.2 3.6-5.1 g/dL GLOBULIN 3.0 1.9-3.7 g/dL (calc) ALBUMIN/GLOBULIN RATIO 1.4 1.0-2.5 (calc) BILIRUBIN, TOTAL 0.6 0.2-1.2 mg/dL ALKALINE PHOSPHATASE 76 35-144 U/L AST 31 10-35 U/L ALT 54 9-46 U/L BASIC METABOLIC PANEL (36739 ) Reviewed date:03/18/2024 10:54:42 AM Interpretation: Performing Lab:SUSHANT [employer] [email or web address], [employer]ated InsightsFakxHR[address] Everett Flores Notes/Report: NON-FASTING GLUCOSE 119 65-99 mg/dL Fasting reference interval For someone without known diabetes, a glucose value between 100 and 125 mg/dL is consistent with prediabetes and should be confirmed with a follow-up test. UREA NITROGEN (BUN) 23 7-25 mg/dL CREATININE 2.76 0.70-1.28 mg/dL EGFR 23 > OR = 60 mL/min/1.73m2 BUN/CREATININE RATIO 8 6-22 (calc) SODIUM 137 135-146 mmol/L POTASSIUM 4.8 3.5-5.3 mmol/L CHLORIDE 99 98-110 mmol/L CARBON DIOXIDE 26 20-32 mmol/L CALCIUM 9.1 8.6-10.3 mg/dL HEMOGLOBIN A1c (496) Reviewed date:03/12/2024 01:41:57 PM Interpretation: Performing Lab:[facility] [email or web address], Automated InsightsXfmeBL[address] Everett Flores Notes/Report: NON-FASTING; NON-FASTING; NON-FASTING HEMOGLOBIN A1c 9.3 <5.7 % of total Hgb For someone without known diabetes, a hemoglobin [...] A1c for diagnosis of diabetes for children. VITAMIN D,25-OH,TOTAL,IA (17 306) Reviewed date:03/12/2024 01:41:57 PM Interpretation: Performing Lab:SUSHANT [facility] [address], [place] OmjwAJ[address] Everett Flores Notes/Report: NON-FASTING; NON-FASTING; NON-FASTING VITAMIN D,25-OH,TOTAL,IA 37 30-100 ng/mL Vitamin D Status 25-OH Vitamin D: Deficiency: <20 ng/mL Insufficiency: 20 - 29 ng/mL Optimal: > or = 30 ng/mL For 25-OH Vitamin D testing on patients on D2-supplementation and patients for whom quantitation of D2 and D3 fractions is required, the QuestAssureD(TM) 25-OH VIT D, (D2,D3), LC/MS/MS is recommended: order code 71960 (patients >2yrs). See Note 1 Note 1 For additional information, please refer to http://education.Tripl.[employer]/faq/DGE963 (This link is being provided for informational/ educational purposes only.) HEMOGLOBIN A1c (496) Reviewed date:2024 11:12:41 AM Interpretation: Performing Lab:SUSHANT [facility] [address], [place] LhoxVK[address] Everett Flores Notes/Report: NON-FASTING; NON-FASTING HEMOGLOBIN A1c [...] A1c for diagnosis of diabetes for children. BASIC METABOLIC PANEL (56864 ) Reviewed date:2024 11:12:41 AM Interpretation: Performing Lab:SUSHANT [facility] [address], [place] InnpVP[address] Everett Flores Notes/Report: NON-FASTING; NON-FASTING GLUCOSE 92 65-99 mg/dL Fasting reference interval UREA NITROGEN (BUN) 23 7-25 mg/dL CREATININE 1.47 0.70-1.28 mg/dL EGFR 50 > OR = 60 mL/min/1.73m2 BUN/CREATININE RATIO 16 6-22 (calc) SODIUM 140 135-146 mmol/L POTASSIUM 4.7 3.5-5.3 mmol/L CHLORIDE 99 98-110 mmol/L CARBON DIOXIDE 30 20-32 mmol/L CALCIUM 9.7 8.6-10.3 mg/dL BASIC METABOLIC PANEL (83648 ) (Not yet reviewed by provider) Interpretation: Performing Lab:CB, [facility] Jblm6077 [facility] Everett Flores Notes/Report: NON-FASTING GLUCOSE 74 65-99 [...] history of nicotine dependence (Z87.891) Referral Organization [facility] Referring Provider First Name Obi Referring Provider Last Name Hayde Referring Provider Speciality Internal edicine Referred Organization [facility] Referred Address [address] [place] [phone],[place] Referred Provider Specialty Diagnostic R adiology Referral Priority Routine Reason Echo with bubble jimmy dy Referral Organization [facility] Referring Provider First Name Obi Referring Provider Last Name Hayde Referring Provider Speciality Internal edicine Referred Organization [facility] Referred Address [address] [place] [phone],[place] Referred Provider Specialty Diagnostic R adiology Referral Priority Routine Referral Appointment Date 04/23/2024 Medications Medication SIG (Take, Route, Frequency, Duration) Notes Start Date End Date Status Mupirocin 2 % 1 gomez applied topically 3 times a day; Duration: 7 day(s) 02/03/2025 Active Albuterol Sulfate HFA 108 (90 Base) MCG/ACT 2 puff as needed Inhalation every 6 hours; Duration: 90 days 11/20/2024 Active Fish Oil 1000 MG 2 TABS PO QD; Duration: 90 DAYS Active Memantine HCl 5 MG TAKE 1 TABLET TWICE DAILY; Duration: 90 Active Metamucil 2 TABS ORALLY ONCE DAILY Active Dexcom G7 Gauge Inspector use for CGM; Duratio n: 90 days DX: E11.69 09/23/2024 Active Trelegy Ellipta 100-62.5-25 MCG/ACT INHALE 1 PUFF ONE TIME DAILY; Duration: 90 Active True Metrix Blood Glucose Test - USE DAILY AND NEEDED; Duration: 30 Active Losartan Potassium 50 MG 1 tab(s) orally once a day; Duration: 90 days 03/16/2024 Active Rybelsus 14 MG 1 tab(s) orally once a day; Duration: 90 days 03/16/2024 Active Dexcom G7 Sensor - use for CGM; Duratio n: 90 days DX: E11.69 09/23/2024 Active HumuLIN 70/30 KwikPen (70-30) 100 UNIT/ML 24 units Subcutaneous breakfast and supper; Duration: 90 days 09/16/2024 Active Docusate Sodium 250 MG 1 cap(s) orally o nce a day; Duration: 90 days 06/21/2022 Active Tamsulosin HCl 0.4 MG 1 cap(s) orally on ce a day; Duration: 90 days Active ALLERGY AND CONGESTION RELIEF 10 MG-240 MG 1 TAB(S) ORALLY ONCE A DAY; Duration: 90 DAYS 06/24/2023 Active Aspirin 81 MG 1 TAB(S) ORALLY ONCE A DAY; Duration: 90 DAYS Active Levocetirizine Dihydrochloride 5 MG 1 tab(s) orally once a day (in the evening); Duration: 90 days Active Ipratropium-Albuterol 0.5-2.5 (3) MG/3ML 3 mL by nebulizer 1 to 2 times daily; Duration: 90 days Active Fluticasone Propionate 50 MCG/ACT 2 sprays in each nostril once a day; Duration: 90 days prn Active ALBUTEROL (EQV-PROAIR HFA) 90 MCG/INH 2 PUFF(S) INHALED EVERY 6 HOURS; Duration: 90 DAYS prn 06/24/2023 Active buPROPion HCl ER (SR) 150 MG 1 tab(s) orally every 24 hours; Duration: 90 days Active Atorvastatin Calcium 80 MG 1 tab(s) orally once a day; Duration: 90 days Active Metoprolol Tartrate 25 MG 2 tab(s) orall y once daily; Duration: 90 days Active Immunizations Vaccine Route Administration Date Status Comme nts Zostavax (Shingles) Unknown 03/12/2012 Administered Zostavax (Shingles) SC Subcutaneous 07/24/2017 Administere d Prevnar PCV-20 (Pneumococcal conjugate 20) IM Intramuscular 03/03/2022 Administered Prevnar PCV-13 (Pneumococcal conjugate 13) Unknown 10/12/2015 Administered Pneumovax 23 Unknown 01/05/2012 Administered Pneumovax 23 IM Intramuscular 02/12/2018 Administered Influenza-Fluzone 3+years (NON-MEDICARE) Unknown 03/16/2015 Administered Influenza-Fluzone 3+years (NON-MEDICARE) Unknown 03/07/2016 Administered Influenza (Fluzone)--Medicare only IM Intramuscular 04/10/2017 Administered Influenza (Fluzone)--Medicare only IM Intramuscular 02/12/2018 Administered Fluzone High Dose IM Intramuscular 03/13/2019 Administered Fluzone High Dose IM Intramuscular 04/06/2020 Administered Fluzone High Dose IM Intramuscular 03/08/2021 Administered Fluzone High Dose IM Intramuscular 03/03/2022 Administered Fluzone High Dose IM Intramuscular 02/13/2023 Administered Fluzone High Dose IM Intramuscular 03/16/2024 Administered Fluzone High Dose IM Intramuscular 02/03/2025 Administered Covid Moderna Unknown 07/13/2020 Administered Covid Moderna Unknown 08/10/2020 Administered Covid Moderna Unknown 04/21/2021 Administered Arexvy IM Intramuscular 06/01/2024 Administered Social History Tobacco Use: Social History Observation Description Date Details (start date - stop date) Former Smoker NA - NA Tobacco Control (Standard) Question Answer Notes Tobacco use: Former smoker How long has it been since you last smoked? 3-6 months Problems Problem Type SNOMED Code ICD Code Onset Dates Problem Status W/U Status Risk Notes Problem Hyperglycemia due to type 2 diabetes mellitus (043165224985051) Type 2 diabetes mellitus with hyperglycemia (E11.65) Active confirmed Problem Type 2 diabetes mellitus with other specified complication (E11.69) Active confirmed Problem Obesity (920422031) Obesity, unspecified (E66.9) Active confirmed Problem Hyperlipidemia (66220692) Hyperlipidemia, unspecified (E78.5) Active confirmed Problem Seasonal allergic rhinitis (345894222) Other seasonal allergic rhinitis (J30.2) Active confirmed Problem Allergic rhinitis (12096023) Other allergic rhinitis (J30.89) Active confirmed Problem Centrilobular emphysema (68210658) Centrilobular emphysema (J43.2) Active confirmed Problem Lower abdominal pain (31394510) Lower abdominal pain, unspecified (R10.30) Active confirmed Problem Obese class I (finding) (712405324752250) Obesity (BMI 30.0-34.9) (E66.9) Active confirmed Problem Vitamin D deficiency (52025478) Vitamin D deficiency (E55.9) Active confirmed Problem Mild cognitive impairment (511039838) Mild cognitive impairment (G31.84) Active confirmed Problem Essential hypertension (47147549) Hypertension, essential (I10) Active confirmed Problem Idiopathic peripheral neuropathy (52007606) Idiopathic peripheral neuropathy (G60.9) Active confirmed Problem Long-term current use of insulin (326616232) nursing home (current) use of insulin (Z79.4) Active confirmed Problem Obesity (363261132) Obesity (BMI 30-39.9) (E66.9) Active confirmed Problem Memory loss (56925599) Memory loss (R41.3) Active confirmed Problem COPD - Chronic obstructive pulmonary disease (52891564) Chronic obstructive pulmonary disease, unspecified COPD type (J44.9) Active confirmed Problem Primary osteoarthritis (854975367) Primary osteoarthritis involving multiple joints (M15.0) Active confirmed Problem Obese class II (236323714391992) BMI 36.0-36.9,adult (Z68.36) Active confirmed Problem Peripheral arterial disease (460561243) Peripheral arterial disease (I73.9) Active confirmed Problem Pulmonary nodule (701310340) Pulmonary nodule (R91.1) Active confirmed Problem Benign prostatic hypertrophy with outflow obstruction (233881069) BPH loc w urin obs/LUTS (N40.1) Active confirmed Problem Low oxygen saturation (337841922) Low oxygen saturation (R79.81) Active confirmed Problem Disorder of kidney and/or ureter (956029857) Left renal mass (N28.89) Active confirmed Problem Renal mass (464178134) Renal mass (N28.89) Active confirmed Problem Plain X-ray of chest abnormal (finding) (4153673353) Abnormal chest xray (R93.89) Active confirmed Problem Status post patent foramen ovale closure (Z87.74) Active confirmed Problem Radiology result abnormal (082692726) Abnormal chest CT (R93.89) Active confirmed Problem Tomography - chest abnormal (707412511) Abnormal CT scan, chest (R93.89) Active confirmed Problem Pressure injury of left buttock stage I (disorder) (46932601818063) Pressure injury of left buttock, stage 1 (L89.321) Active confirmed Vital Signs Heart Rate 88 /min 02/03/2025 Temperature 97.3 degrees Fahrenheit 02/03/2025 Blood pressure diastolic 78 mm Hg 02/03/2025 Height 69 in 02/03/2025 Blood pressure systolic 122 mm Hg 02/03/2025 Weight 227.6 lbs 02/03/2025 BMI 33.61 kg/m2 02/03/2025 Encounters Encounter Location Date Provider Diagnosis [facility] [address] [place] [address] 03/11/2024 Obi Besson [facility] [address] [facility] [address] [place] [address] 08/19/2024 Obi Besson [facility] [address] [facility] [address] [place] [address] 09/05/2024 Provider Migration Type 2 diabetes mellitus with other specified complication E11.69 [facility] [address] [place] [address] 03/16/2024 Obi Lock Elevated serum creatinine R79.89 ; Type 2 diabetes mellitus with other specified complication E11.69 ; Immunization(s) administered Z23 ; Medicare annual wellness visit, subsequent Z00.00 and Hypertension, essential I10 [facility] [address] [place] [address] 04/15/2024 Obi Lock Memory loss R41.3 ; Hypertension, essential I10 ; Chronic obstructive pulmonary disease, unspecified COPD type J44.9 ; Type 2 diabetes mellitus with other specified complication E11.69 and Status post patent foramen ovale closure Z87.74 [facility] [address] [place] [address] 06/01/2024 Obi Lock Mild cognitive impairment G31.84 and Encounter for immunization Z23 [facility] [address] [place] [address] 08/31/2024 Obi Lock Type 2 diabetes mellitus with other specified complication E11.69 ; Cognitive impairment R41.89 and Mild cognitive impairment G31.84 [facility] [address] [place] [address] 09/16/2024 Obi Lock Type 2 diabetes mellitus with hyperglycemia E11.65 and nursing home (current) use of insulin Z79.4 [facility] [address] [place] [address] 09/23/2024 Obi Lock Type 2 diabetes mellitus with other specified complication E11.69 [facility] [address] [place] [address] 10/21/2024 Obi Lock Type 2 diabetes mellitus with hyperglycemia E11.65 and Chronic obstructive pulmonary disease, unspecified COPD type J44.9 [facility] [address] [place] [address] 12/23/2024 Obi Lock Type 2 diabetes mellitus with other specified complication E11.69 ; Hyperlipemia, idiopathic familial E78.5 ; Hypertension, essential I10 and Routine medical exam Z00.00 [facility] [address] [facility] [place] [address] 02/03/2025 Obi Lock Type 2 diabetes mellitus with other specified complication E11.69 ; Elevated serum creatinine R79.89 ; Pressure injury of left buttock, stage 1 L89.321 ; Personal history of nicotine dependence Z87.891 ; Hypertension, essential I10 ; Chronic obstructive pulmonary disease, unspecified COPD type J44.9 ; Routine medical exam Z00.00 and Immunization(s) administered Z23 [facility] [address] [place] [address] 03/10/2024 Obi Besson Vitamin D deficiency E55.9 and Type 2 diabetes mellitus with other specified complication E11.69 [facility] [address] [place] [address] 04/15/2024 Obi Besson Patent foramen ovale Q21.12 and Dyspnea R06.00 [facility] [address] [place] [address] 06/15/2024 Obi Besson Type 2 diabetes mellitus with other specified complication E11.69 [facility] [address] [place] [address] 07/09/2024 Obi Besson [facility] [address] [address] 07/13/2024 Obi Besson Type 2 diabetes mellitus with other specified complication E11.69 [facility] [address] [place] [address] 08/19/2024 Obi Besson [facility] [address] [place] [address] 08/19/2024 Obi Besson Type 2 diabetes mellitus with other specified complication E11.69 and Idiopathic peripheral neuropathy G60.9 [facility] [address] [address] 09/16/2024 Obi Besson [facility] [address] [place] [address] 09/16/2024 Obi Besson Type 2 diabetes mellitus with hyperglycemia E11.65 [facility] [address] [place] [address] 09/23/2024 Obi Besson [facility] [address] [place] [address] 10/16/2024 Obi Besson [facility] [address] [place] [address] 10/16/2024 Obi Besson [facility] [address] [facility] [address] [place] [address] 10/21/2024 Obi Lock [facility] [place] [address], [place] [address] 11/20/2024 Obi Besnelda [facility] [place] [address] [facility] [address] [place] [address] 12/21/2024 Obi Lock [facility] [address] [facility] [address] [place] [address] 02/04/2025 Obi Lock Personal history of nicotine dependence Z87.891 Assessments Encounter Date Diagnosis (ICD Code) Assessment Notes Treatment Notes Treatment Clinical Notes Section Notes 03/10/2024 Type 2 diabetes mellitus with other specified complication (ICD-10 - E11.69) 03/10/2024 Vitamin D deficiency (ICD-10 - E55.9) 03/16/2024 Type 2 diabetes mellitus with other specified complication (ICD-10 - E11.69) A1c 9.2% recently from 8.0% three months ago. No change in diet. Compliant with all medications. Also had UACR which was 855mg/g. Plan - stop metformin given elevated creatinine - start Rybelsus. Continue Jardiance and Januvia. - increase losartan to 50mg daily given proteinuria 04/15/2024 Hypertension, essential (ICD-10 - I10) Elevated blood pressure today, patient did not take Losartan prior to visit today. He does not report symptoms. Continue current regimen. 04/15/2024 Memory loss (ICD-10 - R41.3) MOCA score . Patient lost points specifically in areas of delayed recall. 04/15/2024 Patent foramen ovale (ICD-10 - Q21.12) 06/01/2024 Mild cognitive impairment (ICD-10 - G31.84) Long discussion about his labs. He would benefit from specific vitamin B supplementation. I went over this in detail, recommending thiamine and vitamin B12. We discussed doing different brain exercises. He started balancing his checkbook using pencil and paper addition instead of a calculator and he thinks this has helped. He gets outside daily but struggles to walk because of his dyspnea. We discussed doing antioxidant based fruits and vegetables as well as reducing processed meats and doing more natural sources of fat. Given his high risk of Alzheimer's on his lab test I think memantine is indicated. He is agreeable, will start 5 mg twice daily, discussed side effects. He has very mild cognitive impairment and is in no way impaired from signing legal or financial documents or driving. Follow-up in a couple months 06/01/2024 Encounter for immunization (ICD-10 - Z23) 06/15/2024 Type 2 diabetes mellitus with other specified complication (ICD-10 - E11.69) 07/13/2024 Type 2 diabetes mellitus with other specified complication (ICD-10 - E11.69) 08/19/2024 Type 2 diabetes mellitus with other specified complication (ICD-10 - E11.69) 08/19/2024 Idiopathic peripheral neuropathy (ICD-10 - G60.9) 08/31/2024 Type 2 diabetes mellitus with other specified complication (ICD-10 - E11.69) Counseled on decreasing sugar intake by eliminating fruits and juice. Replace juices with water. If eating fruit better to consume fruits lower in sugar: strawberries, blackberries, raspberries and bluberries. Cans of fruit have added sugars; fruits like apples, pears, bananas and oranges are high in sugar and contribute to increase in A1C. Discussed adding metformin, patient notes he has taken metformin in the past with side effects. Will hold off on this for now and increase Rybelsus to 14. 08/31/2024 Cognitive impairment (ICD-10 - R41.89) Patient remains on memantine. Seems to be fairly stable. No side effects. Will continue to follow. Obviously improving glycemic control will help vision and sensory issues and hopefully cognitive impairment 09/05/2024 Type 2 diabetes mellitus with other specified complication (ICD-10 - E11.69) 09/16/2024 Type 2 diabetes mellitus with hyperglycemia (ICD-10 - E11.65) Given inability to take metformin or other medications and significant hyperglycemia I think his pancreas has progressed towards failure. Will start supplementing with insulin. Will do 7030 twice a day with meals, low-dose, extensive discussion with him and his about how to start this medication, gave him handouts about carb reduction, water and walking, follow-up in 1 week. 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 Fasting glucose has began decreasing daily. Fasting glucose today was 199, first day that it was below 200. We would like to see fasting glucose below 200 daily, goal is 100-150. We will increase insulin to 15 units of 70/30 twice daily. We will also be placing a Dexcom in office today for continous glucose monitoring. 10/21/2024 Type 2 diabetes mellitus with hyperglycemia (ICD-10 - E11.65) -BG much improved, continue insulin 24u BID as titrated per Pt -RT Opthal 2/2 vision changes, establish a new baseline and monitor for improvement now that BG control improved -Frothy urine: Urine protien:Cr today, may need to add jardiance/SGLT2, on ARB -Cont Rybelsus -RTC 6-8w for A1c following Pt's [facility] cruise 10/21/2024 Chronic obstructive pulmonary disease, unspecified COPD type (ICD-10 - J44.9) Patient is doing well, does use 1.5 L nasal cannula oxygen. I have provided documentation that he would need this on his plane flight. Otherwise I think he should do well. Again follow-up when he gets back from [place] 12/23/2024 Type 2 diabetes mellitus with other [...] labs today and assess at next visit 03/16/2024 Elevated serum creatinine (ICD-10 - R79.89) Creatinine 2.6 from 1.0 on recent labs. Had course of antibiotics recently. No changes in urination, hydration. 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 Will recheck today 02/04/2025 Personal history of nicotine dependence (ICD-10 - Z87.891) 02/03/2025 Pressure injury of left buttock, stage 1 (ICD-10 - L89.321) Discussed adjusting pillows on his chairs, discussed mupirocin to help with healing 12/23/2024 Hypertension, essential (ICD-10 - I10) - BP well controlled - Continue losartan, refilled 03/16/2024 Immunization(s) administered (ICD-10 - Z23) 04/15/2024 Dyspnea (ICD-10 - R06.00) 08/31/2024 Mild cognitive impairment (ICD-10 - G31.84) 04/15/2024 Chronic obstructive pulmonary disease, unspecified COPD type (ICD-10 - J44.9) Patient follows with pulmonology. Reports use of oxygen at night and inhalers. Continue current regimen. 03/16/2024 Medicare annual wellness visit, subsequent (ICD-10 - Z00.00) UTD on healthcare maintenance. Given flu vaccination today. He lives alone and is independent for all ADLs. He does not have a living will. His brothers would be surrogate healthcare decision makers if needed. No concerns about mood. I reviewed his HRA. 08/03 on word recall. 04/15/2024 Type 2 diabetes mellitus with other specified complication (ICD-10 - E11.69) Continue current regimen. 02/03/2025 Personal history of nicotine dependence (ICD-10 - Z87.891) Has been a neck smoker for a while, still needs low-dose CTs, this will be ordered 12/23/2024 Routine medical exam (ICD-10 - Z00.00) Up-to-date with colon screening and low-dose CT screening. Has stopped smoking. Vaccines up-to-date. No recent falls. No Cognitive impairment not noted. 02/03/2025 Hypertension, essential (ICD-10 - I10) 04/15/2024 Status post patent foramen ovale closure (ICD-10 - Z87.74) Closure in 2008, patient reports increased exertional dyspnea over the past few months and states he feels similar to before procedure for closure. 03/16/2024 Hypertension, essential (ICD-10 - I10) BP 138/80 in office today. Given macroalbuminuria, will increase losartan to 50mg daily. 02/03/2025 Chronic obstructive pulmonary disease, unspecified COPD type (ICD-10 - J44.9) 02/03/2025 Routine medical exam (ICD-10 - Z00.00) Flu shot today, up-to-date with cancer screenings. Other vaccines up-to-date. No falls. Depression screening negative. 3 word recall intact. is healthcare surrogate. 02/03/2025 Immunization(s) administered (ICD-10 - Z23) 12/23/2024 Other - Has brittle nails - Recommended daily multivitamen Plan Of Treatment Pending Test Test Name Order Date CT Scan : Chest, With & Without Contrast 03/08/2021 Over Night Pulse Oximetry 03/23/2022 H-VIT D, 25-HYDROXY 06/29/2016 H-VIT D, 25-HYDROXY 01/07/2017 H-VIT D, 25-HYDROXY 04/02/2017 H-URINE CREATININE PROTEIN 04/10/2017 Lexiscan Stress Test 08/11/2020 M-Complete Blood Count Auto Diff 020 M-Complete Blood Count Auto Diff 021 M-Comprehensive Metabolic Panel 01/24/20 21 M-Comprehensive Metabolic Panel 10/16/19 20 M-BUN & Creatinine 10/23/2019 M-Hemoglobin A1C 10/16/2019 M-Hemoglobin A1C 01/23/2021 M-Lipid Panel 01/23/2021 M-Lipid Panel 10/16/2019 M-Prostate Specific Ag Screen 03/01/2021 M-ABG PH 03/21/2022 M-Vitamin D 25 Hydroxy 10/16/2019 M-Vitamin D 25 Hydroxy 03/29/2020 M-Vitamin D 25 Hydroxy 08/01/2020 M-Vitamin D 25 Hydroxy 11/02/2020 M-Vitamin D 25 Hydroxy 03/01/2021 M-Vitamin D 25 Hydroxy 06/05/2021 M-Vitamin D 25 Hydroxy 08/30/2021 M-Vitamin D 25 Hydroxy 01/23/2021 M-Vitamin D 25 Hydroxy 02/05/2023 M-Vitamin D 25 Hydroxy 11/30/2021 CT Scan : Chest, Lung Cancer Screening 0 02/04/2025 CT Scan : Abdomen with IV contrast 10/02 CULTURE, AEROBIC AND ANAEROBIC W/GRAM ST AIN (4446) 09/03/2023 LIPID PANEL, STANDARD (7600) 11/14/2023 COMPREHENSIVE METABOLIC PANEL (50329) BASIC METABOLIC PANEL (35780) 02/03/2025 CBC (INCLUDES DIFF/PLT) (6399) CBC (INCLUDES DIFF/PLT) WITH SMEAR REVIE W () 09/02/2023 HEMOGLOBIN A1c (496) 11/14/2023 VITAMIN D,25-OH,TOTAL,IA (83543) 024 Future Test Test Name Order Date Hemoglobin A1c 04/22/2017 Basic Metabolic Panel (8) 04/22/2017 Next Appt Details Provider Name:Obi Crockettterrell Lock, 05/17/2025 09:30:00 AM, [address], [address], [place], [address], Insurance Providers Payer Name Payer Address Payer Phone Subscriber Number Group Number Insured Name Patient Relationship to Insured Coverage Start Date Coverage End Date [employer] [address] [address] [place] [address] [phone] [id number] Martin Flanagan Self - patient is the insured Medications Administered Medication Instructions Date of Administration Dosage Notes Ceftriaxone 500 06/10/2019 250 mg Ceftriaxone 500 06/10/2019 250 mg Ceftriaxone 500 08/12/2023 500 mL Dexamethasone 4mg Injection 08/12/2023 4 mL Triamcinolone Acetonide 40mg Injection 06/10/2019 1 mL TRIAMCINOLONE 07/23/2022 1 mL Medical (General) History Medical History History ICD Code COPD High Blood pressure HLD Vitamin D Deficiency Normal abdominal aortic ultrasound for A AA screening in 2016 Low-dose CT scan January 2021 with benign-appearing mass, f/u with contrast appeared unchanged.. recheck one year Colonoscopy 03/2022 with 4 tubular adeno mas Lung Nodule or Mass 2023 Surgical History Surgery Date(Month/Year) Colonoscopy 07/05/15 Hole fixed in heart 2006 Bilateral Rotator Cuff Repair 2008 Colonoscopy 03/2017 Colonoscopy 03/2022 Eyelid lift 04/2022 laser surgery on prostate 09/2022 Dental extraction 10/23 Hospitalization History Reason Date(Month/Year) pneumonia 2011
--- NOTE | 2025-02-10 07:13 | CT_ITS ---
FINAL REPORT TECHNIQUE: Thin section axial images were obtained through the lungs using a low-dose technique per lung cancer screening protocol. Reconstruction images were obtained using the axial data. Exam was performed using dose reduction technique. This study was performed with techniques to keep radiation doses as low as reasonably achievable (ALARA). Individualized dose reduction techniques using automated exposure control or adjustment of mA and/or kV according to the patient's size were employed. CLINICAL HISTORY: SCREENING former smoker quit 1 year ago 3-4ppd x63 years COMPARISON: LDCT 12/29/2020, CT of the chest 03/20/2021 FINDINGS: CTDLvol: 2.90 DLP: 107.33 Former smoker quit 1 year ago Greater than 189 pack year history Lungs: Changes in emphysema are noted with biapical scarring similar to the prior examination. There is a 4 mm subpleural left upper lobe nodule best seen on image #12 of series 4, which was probably present on the prior exam of 2020. There is a subpleural right upper lobe nodule measuring 3 mm in size, best seen on image #27, which is stable. There are stable ground glass and airspace opacities in the left lower lobe, with bronchiectasis present in the left lower lobe as well. No new nodules or masses are noted. Lymph nodes: No thoracic lymphadenopathy. Mediastinum: Heart size is normal. Prominent coronary artery calcifications are present. Pleura/pericardium: No pleural or pericardial effusion. Other: There is a partially exophytic lesion in the upper pole of the left kidney which is slightly hyperdense, measures 28 mm, was previously 12 mm. IMPRESSION: Multiple stable pulmonary nodules are identified, along with ground glass and airspace disease in the left lower lobe with bronchiectasis. No new nodules are identified. Partially exophytic lesion in the upper left kidney, hyperintense, significantly larger than seen on the prior exam. Lung RADS: 2S, the S designation for the hyperdense renal mass Recommendation: 1. 12-month follow-up LDCT. 2. Recommend CT renal mass protocol for further evaluation of the hyperdense renal mass. Reviewed, Interpreted and Dictated by Domitila Johnson MD Transcribed by Miriam Royal Authenticated and [facility]
== END 2025-02-10 23:59 | disposition home or self-care (01) ==
LOC: RAD 07:09
PROVIDERS: PCP Internal Medicine Adolescent Medicine; Visit Provider Internal Medicine Adolescent Medicine
DX: J98.4 Other disorders of lung (principal); J47.9 Bronchiectasis, uncomplicated; R91.8 Other nonspecific abnormal finding of lung field; N28.89 Other specified disorders of kidney and ureter; Z12.2 Encounter for screening for malignant neoplasm of respiratory organs; Z87.891 Personal history of nicotine dependence
CPT/HCPCS: 71271

== ENCOUNTER 2025-06-01 07:48 | Outpatient (CLI) | payer MEDICARE, SELFPAY ==
--- OUTSIDE RECORDS SUMMARY | 2024-09-05 16:30 | XMS_ITS ---
Author Organization [facility] Address [address] [place] [address] Care Team Providers Care Mail Delivery Supervisor Name Role Phone Obi Lock Primary Care Provider [phone] Migration, Provider Unavailable Unavailable Allergies Allergen (clinical drug ingredient) Drug/Non Drug Allergy documented on EMR Reaction Allergy Type Onset Date Status IV DYE (uncoded) Hands and feet swelling Allergy Active niacin Niacin Shook all over Drug Allergy Ac tive REASON FOR VISIT [facility] Encounter Medications Medication SIG (Take, Route, Frequency, Duration) Notes Start Date End Date Status Rybelsus 14 MG Tablet 1 tab(s) orally once a day; Duration: 90 days 03/16/2024 Active Atorvastatin Calcium 80 MG Tablet 1 tab(s) orally once a day; Duration: 90 days Active Memantine HCl 5 MG Tablet 1 tab(s) orally 2 times a day; Duration: 90 days 06/01/2024 Active Ipratropium-Albuterol 0.5-2.5 (3) MG/3ML Solution 3 mL by nebulizer 1 to 2 times daily; Duration: 90 days Active Metoprolol Tartrate 25 MG Tablet 2 tab(s) orally once daily; Duration: 90 days Active Trelegy Ellipta 100 MCG-62.5 MCG-25 MCG/INH POWDER INHALE 1 PUFF BY MOUTH ONCE A DAY; Duration: 90 DAYS *Please review and pick correct strength-formulati on from [facility] options. If intended option is not shown, discontinue and re-order from Quick Search* Active Fluticasone Propionate 50 MCG/ACT Suspension 2 sprays in each nostril once a day; Duration: 90 days Active Levocetirizine Dihydrochloride 5 MG Tablet 1 tab(s) orally once a day (in the evening); Duration: 90 days Active buPROPion HCl ER (SR) 150 MG Tablet Extended Release 12 Hour 1 tab(s) orally every 24 hours; Duration: 90 days Active Losartan Potassium 50 MG Tablet 1 tab(s) orally once a day; Duration: 90 days 03/16/2024 Active Gemtesa 75 MG Tablet TAKE 1 TABLET ONE TIME DAILY; Duration: 90 Active ALBUTEROL (EQV-PROAIR HFA) 90 MCG/INH AEROSOL 2 PUFF(S) INHALED EVERY 6 HOURS; Duration: 90 DAYS *Please review for potential replacement for e-prescription and drug interaction check* 06/24/2023 Active Jardiance 25 MG Tablet 1 tab(s) orally once a day (in the morning); Duration: 90 days 06/28/2023 Active Tamsulosin HCl 0.4 MG Capsule 1 cap(s) orally once a day; Duration: 90 days Active Docusate Sodium 250 MG Capsule 1 cap(s) orally once a day; Duration: 90 days 06/21/2022 Active Metamucil TABS 2 TABS ORALLY ONCE DAILY *Please review and pick correct strength-formulati on from [employer] options. If intended option is not shown, discontinue and re-order from Quick Search* Active ALLERGY AND CONGESTION RELIEF 10 MG-240 MG TABLET, EXTENDED RELEASE 1 TAB(S) ORALLY ONCE A DAY; Duration: 90 DAYS *Please review for potential replacement for e-prescription and drug interaction check* 06/24/2023 Active Fish Oil 1000 MG 2 TABS PO QD; Duration: 90 DAYS *Please review and pick correct strength-formulati on from [employer] options. If intended option is not shown, discontinue and re-order from Quick Search* Active Aspirin 81 MG TABLET 1 TAB(S) ORALLY ONCE A DAY; Duration: 90 DAYS *Please review and pick correct strength-formulati on from [employer] options. If intended option is not shown, discontinue and re-order from Quick Search* Active Encounters Encounter Location Date Provider Diagnosis [facility] [address] [facility] [address] [place] [address] 09/05/2024 Provider Migration Type 2 diabetes mellitus with other specified complication E11.69 Assessments Encounter Date Diagnosis (ICD Code) Assessment Notes Treatment Notes Treatment Clinical Notes Section Notes 09/05/2024 Type 2 diabetes mellitus with other specified complication (ICD-10 - E11.69) Plan Of Treatment Medication Medication Name Sig Start Date Stop Date Notes Rybelsus 14 MG Tablet 1 tab(s) orally on ce a day; Duration: 90 days 03/16/2024 Next Appt Details Provider Name:Obi Lock, 07/19/2025 09:00:00 AM, [address], [address], [place], [address], Progress Notes * Elida FLANAGANOB:1950 ([age] yo M)Acc No.[id number]:09/05/2024 Patient: Martin Melo Provider: Aram jolly Migration :1950 A ge:73 Y S ex:Male Date:09/05/2024 Address:[address], [id number] Pcp:Obi Lock Subjective: * Chief Complaints: * M ultum To Medispan Conversion Encounter * Medications: T akingMetamucil TABS 2 TABS ORALLY ONCE DAILY , Notes to Pharmacist: *Please review and pick correct strength-formulation from [employer] options. If intended option is not shown, discontinue and re-order from Quick Search*Fish Oil 1000 MG 2 TABS PO QD , Notes to Pharmacist: *Please review and pick correct strength-formulation from [employer] options. If intended option is not shown, discontinue and re-order from Quick Search*Aspirin 81 MG TABLET 1 TAB(S) ORALLY ONCE A DAY , Notes to Pharmacist: *Please review and pick correct strength-formulation from [employer] options. If intended option is not shown, discontinue and re-order from Quick Search*ALLERGY AND CONGESTION RELIEF 10 MG-240 MG TABLET, EXTENDED RELEASE 1 TAB(S) ORALLY ONCE A DAY , Notes to Pharmacist: *Please review for potential replacement for e-prescription and drug interaction check*Tamsulosin HCl 0.4 MG Capsule 1 cap(s) orally once a day Docusate Sodium 250 MG Capsule 1 cap(s) orally once a day ALBUTEROL (EQV-PROAIR HFA) 90 MCG/INH AEROSOL 2 PUFF(S) INHALED EVERY 6 HOURS , Notes to Pharmacist: *Please review for potential replacement for e-prescription and drug interaction check*Jardiance 25 MG Tablet 1 tab(s) orally once a day (in the morning) Gemtesa 75 MG Tablet TAKE 1 TABLET ONE TIME DAILY Levocetirizine Dihydrochloride 5 MG Tablet 1 tab(s) orally once a day (in the evening) Trelegy Ellipta 100 MCG-62.5 MCG-25 MCG/INH POWDER INHALE 1 PUFF BY MOUTH ONCE A DAY , Notes to Pharmacist: *Please review and pick correct strength-formulation from [employer] options. If intended option is not shown, discontinue and re-order from Quick Search*Fluticasone Propionate 50 MCG/ACT Suspension 2 sprays in each nostril once a day buPROPion HCl ER (SR) 150 MG Tablet Extended Release 12 Hour 1 tab(s) orally every 24 hours Losartan Potassium 50 MG Tablet 1 tab(s) orally once a day Atorvastatin Calcium 80 MG Tablet 1 tab(s) orally once a day Ipratropium-Albuterol 0.5-2.5 (3) MG/3ML Solution 3 mL by nebulizer 1 to 2 times daily Metoprolol Tartrate 25 MG Tablet 2 tab(s) orally once daily Memantine HCl 5 MG Tablet 1 tab(s) orally 2 times a day Taking Metamucil TABS 2 TABS ORALLY ONCE DAILY , Notes to Pharmacist: *Please review and pick correct strength- formulation from [employer] options. If intended option is not shown, discontinue and re-order from Quick Search*Taking Fish Oil 1000 MG 2 TABS PO QD , Notes to Pharmacist: *Please review and pick correct strength-formulation from [employer] options. If intended option is not shown, discontinue and re-order from Quick Search*Taking Aspirin 81 MG TABLET 1 TAB(S) ORALLY ONCE A DAY , Notes to Pharmacist: *Please review and pick correct strength-formulation from [employer] options. If intended option is not shown, discontinue and re-order from Quick Search*Taking ALLERGY AND CONGESTION RELIEF 10 MG-240 MG TABLET, EXTENDED RELEASE 1 TAB(S) ORALLY ONCE A DAY , Notes to Pharmacist: *Please review for potential replacement for e-prescription and drug interaction check*Taking Tamsulosin HCl 0.4 MG Capsule 1 cap(s) orally once a day Taking Docusate Sodium 250 MG Capsule 1 cap(s) orally once a day Taking ALBUTEROL (EQV-PROAIR HFA) 90 MCG/INH AEROSOL 2 PUFF(S) INHALED EVERY 6 HOURS , Notes to Pharmacist: *Please review for potential replacement for e-prescription and drug interaction check*Taking Jardiance 25 MG Tablet 1 tab(s) orally once a day (in the morning) Taking Gemtesa 75 MG Tablet TAKE 1 TABLET ONE TIME DAILY Taking Levocetirizine Dihydrochloride 5 MG Tablet 1 tab(s) orally once a day (in the evening) Taking Trelegy Ellipta 100 MCG-62.5 MCG-25 MCG/INH POWDER INHALE 1 PUFF BY MOUTH ONCE A DAY , Notes to Pharmacist: *Please review and pick correct strength-formulation from [employer] options. If intended option is not shown, discontinue and re-order from Quick Search*Taking Fluticasone Propionate 50 MCG/ACT Suspension 2 sprays in each nostril once a day Taking buPROPion HCl ER (SR) 150 MG Tablet Extended Release 12 Hour 1 tab(s) orally every 24 hours Taking Losartan Potassium 50 MG Tablet 1 tab(s) orally once a day Taking Atorvastatin Calcium 80 MG Tablet 1 tab(s) orally once a day Taking Ipratropium-Albuterol 0.5-2.5 (3) MG/3ML Solution 3 mL by nebulizer 1 to 2 times daily Taking Metoprolol Tartrate 25 MG Tablet 2 tab(s) orally once daily Taking Memantine HCl 5 MG Tablet 1 tab(s) orally 2 times a day * Allergies: N iacin: Shook all overIV DYE: Hands and feet swelling Assessment: * Assessment: 1. T ype 2 diabetes mellitus with other specified complication - E11.69 (Primary) ? Plan: * Treatment: Billing Information: * Procedure Codes: * Electronic signature of Prov jose Migration on 06/01/2025 at 07:51 AM EST Sign off status: Pending * Provider: Aram jolly Migration Date: 0 09/05/2024 Generated for Brandie mcintyre/Arash/Kathleen on: 07:51 AM EST
--- OUTSIDE RECORDS SUMMARY | 2025-05-11 05:35 | XMS_ITS ---
Author Organization [facility] D LUCIA Address [address] [place] [address] Care Team Providers Care Milking Machine Operator Name Role Phone Obi Lock Primary Care Provider Results Component Value Reference Range Flag Notes THYROID PANEL WITH TSH (7444 ) Reviewed date:05/15/2025 09:39:30 PM Interpretation: Performing Lab:[facility], [email or web address] [id number] [place], DealPingXwecZZ[address] Everett Flores Notes/Report: FASTING: YES FASTING:YES NON-FASTING; NON-FASTING; NON-FASTING; NON-FASTING; NON-FAST T3 UPTAKE 27 22-35 % N T4 (THYROXINE), TOTAL 8.1 4.9-10.5 mcg/dL N FREE T4 INDEX (T7) 2.2 1.4-3.8 N TSH 6.10 0.40-4.50 mIU/L H LIPID PANEL, STANDARD (7600) Reviewed date:05/15/2025 09:39:31 PM Interpretation: Performing Lab:[facility] [employer] [id number] [employer], DealPingPxoqZC[address] Everett Flores Notes/Report: NON-FASTING; NON-FASTING; NON-FASTING; NON-FASTING; NON-FAST FASTING:YES FASTING: YES CHOLESTEROL, TOTAL 159 <200 mg/dL N HDL CHOLESTEROL 39 > OR = 40 mg/dL L TRIGLYCERIDES 261 <150 mg/dL H If a non-fasting specimen was collected, consider repeat triglyceride testing on a fasting specimen if clinically indicated. Radha et al. J. of Clin. Lipidol. 2015;9:129-169. LDL-CHOLESTEROL 86 N Reference range: <100 Desirable range <100 mg/dL for primary prevention; <70 mg/dL for patients with CHD or diabetic patients with > or = 2 CHD risk factors. LDL-C is now calculated using the King-Duff calculation, which is a validated novel method providing better accuracy than the Friedewald equation in the estimation of LDL-C. King SS et al. DIEUDONNE. 2013;310(19): 0350-7874 (http://CreditPing.com.Game Closure/faq/MUX589) CHOL/HDLC RATIO 4.1 <5.0 (calc) N NON HDL CHOLESTEROL 120 <130 mg/dL (calc) N For patients with diabetes plus 1 major ASCVD risk factor, treating to a non-HDL-C goal of <100 mg/dL (LDL-C of <70 mg/dL) is considered a therapeutic option. COMPREHENSIVE METABOLIC JEFFREY Michelle (35664) Reviewed date:05/15/2025 09:39:31 PM Interpretation: Performing Lab:CB, [employer] [facility] [id number], [facility] HospitalNmlyEX[address] Everett Flores Notes/Report: NON-FASTING; NON-FASTING; NON-FASTING; NON-FASTING; NON-FAST FASTING:YES FASTING: YES GLUCOSE 91 65-99 mg/dL N Fasting reference interval UREA NITROGEN (BUN) 17 7-25 mg/dL N CREATININE 1.53 0.70-1.28 mg/dL H EGFR 47 > OR = 60 mL/min/1.73m2 L BUN/CREATININE RATIO 11 6-22 (calc) N SODIUM 140 135-146 mmol/L N POTASSIUM 4.8 3.5-5.3 mmol/L N CHLORIDE 98 98-110 mmol/L N CARBON DIOXIDE 32 20-32 mmol/L N CALCIUM 9.4 8.6-10.3 mg/dL N PROTEIN, TOTAL 7.2 6.1-8.1 g/dL N ALBUMIN 4.4 3.6-5.1 g/dL N GLOBULIN 2.8 1.9-3.7 g/dL (calc) N ALBUMIN/GLOBULIN RATIO 1.6 1.0-2.5 (calc) N BILIRUBIN, TOTAL 0.6 0.2-1.2 mg/dL N ALKALINE PHOSPHATASE 101 35-144 U/L N AST 22 10-35 U/L N ALT 27 9-46 U/L N CBC (INCLUDES DIFF/PLT) (639 9) Reviewed date:05/15/2025 09:39:31 PM Interpretation: Performing Lab:[facility] [employer] [id number] [employer] [employer] [address], [place] IyzpLQ[address] Everett Flores Notes/Report: NON-FASTING; NON-FASTING; NON-FASTING; NON-FASTING; NON-FAST FASTING:YES FASTING: YES WHITE BLOOD CELL COUNT 10.5 3.8-10.8 Thousand/uL N RED BLOOD CELL COUNT 6.70 4.20-5.80 Million/uL H HEMOGLOBIN 18.7 13.2-17.1 g/dL H HEMATOCRIT 57.3 39.4-51.1 % H Verified by r epeat analysis. MCV 85.5 81.4-101.7 fL N MCH 27.9 27.0-33.0 pg N MCHC 32.6 31.6-35.4 g/dL N RDW 14.4 11.0-15.0 % N PLATELET COUNT 226 140-400 Thousand/uL N MPV 9.3 7.5-12.5 fL N ABSOLUTE NEUTROPHILS 6269 4236-3583 cells/uL N ABSOLUTE LYMPHOCYTES 3339 850-3900 cells/uL N ABSOLUTE MONOCYTES 683 200-950 cells/uL N ABSOLUTE EOSINOPHILS 116 15-500 cells/uL N ABSOLUTE BASOPHILS 95 0-200 cells/uL N NEUTROPHILS 59.7 N LYMPHOCYTES 31.8 N MONOCYTES 6.5 N EOSINOPHILS 1.1 N BASOPHILS 0.9 N HEMOGLOBIN A1c (496) Reviewed date:05/15/2025 09:39:31 PM Interpretation: Performing Lab:[facility] [employer] [address], [place] RltzIB[address] Everett Flores Notes/Report: NON-FASTING; NON-FASTING; NON-FASTING; NON-FASTING; NON-FAST FASTING:YES FASTING: YES HEMOGLOBIN A1c 6.8 <5.7 % H value of 6.5% or greater indicates that [...] A1c for diagnosis of diabetes for children. For someone without known diabetes, a hemoglobin A1c VITAMIN B12/FOLATE, SERUM PA BRANDI (1979) Reviewed date:05/15/2025 09:39:31 PM Interpretation: Performing Lab:[facility] [email or web address]-Usentrice[address] [facility]eteHealth[facility], [facility] HospitalHtyjSQ[address] Everett Flores Notes/Report: NON-FASTING; NON-FASTING; NON-FASTING; NON-FASTING; NON-FAST FASTING:YES FASTING: YES VITAMIN B12 888 460-6008 pg/mL N FOLATE, SERUM 14.3 N Reference Range Low: <3.4 Borderline: 3.4-5.4 Normal: >5.4 PSA, TOTAL (1246) Reviewed date:05/15/2025 09:39:31 PM Interpretation: Performing Lab:[facility] [email or web address]-[address] [facility], [facility] HospitalFwtvRV[address] Everett Flores Notes/Report: NON-FASTING; NON-FASTING; NON-FASTING; NON-FASTING; NON-FAST FASTING:YES FASTING: YES PSA, TOTAL 1.61 < OR = 4.00 ng/mL N The total PSA value from this assay system is standardized against the WHO standard. The test result will be approximately 20% lower when compared to the equimolar-standardized total PSA (Salvatore Humera). Comparison of serial PSA results should be interpreted with this fact in mind. This test was performed using the Siemens chemiluminescent method. Values obtained from different assay methods cannot be used interchangeably. PSA levels, regardless of value, should not be interpreted as absolute evidence of the presence or absence of disease. VITAMIN D,25-OH,TOTAL,IA (17 306) Reviewed date:05/15/2025 09:39:31 PM Interpretation: Performing Lab:[facility] [employer] [address], Mer[facility] HospitalYfgoNW[address] Everett Flores Notes/Report: NON-FASTING; NON-FASTING; NON-FASTING; NON-FASTING; NON-FAST FASTING:YES FASTING: YES VITAMIN D,25-OH,TOTAL,IA 43 30-100 ng/mL N Vitamin D Status 25-OH Vitamin D: Deficiency: <20 ng/mL Insufficiency: 20 - 29 ng/mL Optimal: > or = 30 ng/mL For 25-OH Vitamin D testing on patients on D2-supplementation and patients for whom quantitation of D2 and D3 fractions is required, the QuestAssureD(TM) 25-OH VIT D, (D2,D3), LC/MS/MS is recommended: order code 20196 (patients >2yrs). See Note 1 Note 1 For additional information, please refer to http://education.Choister/faq/NCD644 (This link is being provided for informational/ educational purposes only.) REASON FOR VISIT Lab Order Encounters Encounter Location Date Provider Diagnosis [facility] LUCIA [address] [facility] [address] [place] [address] 05/11/2025 Obi Lock Vitamin D deficiency E55.9 ; Type 2 diabetes mellitus with other specified complication E11.69 ; Hyperlipidemia, unspecified E78.5 ; Idiopathic peripheral neuropathy G60.9 and Prostate cancer screening Z12.5 Assessments Encounter Date Diagnosis (ICD Code) Assessment Notes Treatment Notes Treatment Clinical Notes Section Notes 05/11/2025 Vitamin D deficiency (ICD-10 - E55.9) 05/11/2025 Type 2 diabetes mellitus with other specified complication (ICD-10 - E11.69) 05/11/2025 Hyperlipidemia, unspecified (ICD-10 - E78.5) 05/11/2025 Idiopathic peripheral neuropathy (ICD-10 - G60.9) 05/11/2025 Prostate cancer screening (ICD-10 - Z12.5) Plan Of Treatment Next Appt Details Provider Name:Obi Lock, 07/19/2025 09:00:00 AM, [address] [facility], [address], [place], [address], Progress Notes * Elida FLANAGANOB:1950 ([age] yo M)Acc No.[id number]:05/11/2025 Patient: Martin BEARDEN :1950 A ge:74 Y S ex:Male Address:[address] [place], [address] Subjective: * Chief Complaints: * L ab Order * Medical History: * Surgical History: * Hospitalization/Major Diagno stic Procedure: * Medications: Objective: * Vitals: * Physical Examination: Assessment: * Assessment: 1. V itamin D deficiency - E55.9 (Primary) 2 . T ype 2 diabetes mellitus with other specified complication - E11.69 3 . H yperlipidemia, unspecified - E78.5 4 . I diopathic peripheral neuropathy - G60.9 5 . P rostate cancer screening - Z12.5 Plan: * Treatment: Value Reference Range T 3 UPTAKE 27 22-35 - % * T 4 (THYROXINE), TOTAL 8.1 4.9-10.5 - mcg/dL * F REE T4 INDEX (T7) 2.2 1.4-3.8 - * T SH 6.10 H 0.40-4.50 - mIU/L * This lab was reviewed by Aditya Lock on 05/15/2025 at 21:39 PM EST ?LAB: LIPID PANEL, STANDARD (7600)* Value Reference Range T RIGLYCERIDES 261 H <150 - mg/dL * C HOLESTEROL, TOTAL 159 <200 - mg/dL * H DL CHOLESTEROL 39 L > OR = 40 - mg/dL * L DL-CHOLESTEROL 86 - mg/dL (calc) * C HOL/HDLC RATIO 4.1 <5.0 - (calc) * N ON HDL CHOLESTEROL 120 <130 - mg/dL (calc) * This lab was reviewed by Aditya Lock on 05/15/2025 at 21:39 PM EST ?LAB: COMPREHENSIVE METABOLIC PANEL (66802)* Value Reference Range G LUCOSE 91 65-99 - mg/dL * U ABE NITROGEN (BUN) 17 7-25 - mg/dL * C REATININE 1.53 H 0.70-1.28 - mg/dL * B UN/CREATININE RATIO 11 6-22 - (calc) * S ODIUM 140 135-146 - mmol/L * P OTASSIUM 4.8 3.5-5.3 - mmol/L * C HLORIDE 98 98-110 - mmol/L * C ARBON DIOXIDE 32 20-32 - mmol/L * C ALCIUM 9.4 8.6-10.3 - mg/dL * P ROTEIN, TOTAL 7.2 6.1-8.1 - g/dL * A LBUMIN 4.4 3.6-5.1 - g/dL * G LOBULIN 2.8 1.9-3.7 - g/dL (calc ) * A LBUMIN/GLOBULIN RATIO 1.6 1.0-2.5 - (calc) * B ILIRUBIN, TOTAL 0.6 0.2-1.2 - mg/dL * A LKALINE PHOSPHATASE 101 35-144 - U/L * A ST 22 10-35 - U/L * A LT 27 9-46 - U/L * E GFR 47 L > OR = 60 - mL/min/1 .73m2 * This lab was reviewed by Aditya Lock on 05/15/2025 at 21:39 PM EST ?LAB: CBC (INCLUDES DIFF/PLT) (6880)* Value Reference Range W DK BLOOD CELL COUNT 10.5 3.8-10.8 - Thousan d/uL * R ED BLOOD CELL COUNT 6.70 H 4.20-5.80 - Million/ uL * H EMOGLOBIN 18.7 H 13.2-17.1 - g/dL * H EMATOCRIT 57.3 H 39.4-51.1 - % * M CV 85.5 81.4-101.7 - fL * M CH 27.9 27.0-33.0 - pg * M CHC 32.6 31.6-35.4 - g/dL * R DW 14.4 11.0-15.0 - % * P LATELET COUNT 226 140-400 - Thousand/u L * N EUTROPHILS 59.7 - % * A BSOLUTE NEUTROPHILS 6269 1053-0512 - cells/uL * L YMPHOCYTES 31.8 - % * A BSOLUTE LYMPHOCYTES 3339 850-3900 - cells/uL * M ONOCYTES 6.5 - % * A BSOLUTE MONOCYTES 683 200-950 - cells/uL * E OSINOPHILS 1.1 - % * A BSOLUTE EOSINOPHILS 116 15-500 - cells/uL * B ASOPHILS 0.9 - % * A BSOLUTE BASOPHILS 95 0-200 - cells/uL * M PV 9.3 7.5-12.5 - fL * This lab was reviewed by [facility] Hayde on 05/15/2025 at 21:39 PM EST ?LAB: HEMOGLOBIN A1c (496)* Value Reference Range H EMOGLOBIN A1c 6.8 H <5.7 - % * This lab was reviewed by [facility] Hayde on 05/15/2025 at 21:39 PM EST ?LAB: VITAMIN B12/FOLATE, SERUM PANEL (7065)* Value Reference Range F OLATE, SERUM 14.3 - ng/mL * V ITAMIN B12 826 908-3308 - pg/mL * This lab was reviewed by [facility] Hayde on 05/15/2025 at 21:39 PM EST ?LAB: PSA, TOTAL (5363)* Value Reference Range P SA, TOTAL 1.61 < OR = 4.00 - ng/mL * This lab was reviewed by [facility] Hayde on 05/15/2025 at 21:39 PM EST ?LAB: VITAMIN D,25-OH,TOTAL,IA (98269)* Value Reference Range V ITAMIN D,25-OH,TOTAL,IA 43 30-100 - ng/mL * This lab was reviewed by [facility] Hayde on 05/15/2025 at 21:39 PM EST 2.?Type 2 diabetes mellitus with other specified complication?LAB: THYROID PANEL WITH TSH (7444)* Value Reference Range T 3 UPTAKE 27 22-35 - % * T 4 (THYROXINE), TOTAL 8.1 4.9-10.5 - mcg/dL * F REE T4 INDEX (T7) 2.2 1.4-3.8 - * T SH 6.10 H 0.40-4.50 - mIU/L * This lab was reviewed by [facility] Hayde on 05/15/2025 at 21:39 PM EST ?LAB: LIPID PANEL, STANDARD (3290)* Value Reference Range T RIGLYCERIDES 261 H <150 - mg/dL * C HOLESTEROL, TOTAL 159 <200 - mg/dL * H DL CHOLESTEROL 39 L > OR = 40 - mg/dL * L DL-CHOLESTEROL 86 - mg/dL (calc) * C HOL/HDLC RATIO 4.1 <5.0 - (calc) * N ON HDL CHOLESTEROL 120 <130 - mg/dL (calc) * This lab was reviewed by Aditya Lock on 05/15/2025 at 21:39 PM EST ?LAB: COMPREHENSIVE METABOLIC PANEL (87833)* Value Reference Range G LUCOSE 91 65-99 - mg/dL * U ABE NITROGEN (BUN) 17 7-25 - mg/dL * C REATININE 1.53 H 0.70-1.28 - mg/dL * B UN/CREATININE RATIO 11 6-22 - (calc) * S ODIUM 140 135-146 - mmol/L * P OTASSIUM 4.8 3.5-5.3 - mmol/L * C HLORIDE 98 98-110 - mmol/L * C ARBON DIOXIDE 32 20-32 - mmol/L * C ALCIUM 9.4 8.6-10.3 - mg/dL * P ROTEIN, TOTAL 7.2 6.1-8.1 - g/dL * A LBUMIN 4.4 3.6-5.1 - g/dL * G LOBULIN 2.8 1.9-3.7 - g/dL (calc ) * A LBUMIN/GLOBULIN RATIO 1.6 1.0-2.5 - (calc) * B ILIRUBIN, TOTAL 0.6 0.2-1.2 - mg/dL * A LKALINE PHOSPHATASE 101 35-144 - U/L * A ST 22 10-35 - U/L * A LT 27 9-46 - U/L * E GFR 47 L > OR = 60 - mL/min/1 .73m2 * This lab was reviewed by Aditya Lock on 05/15/2025 at 21:39 PM EST ?LAB: CBC (INCLUDES DIFF/PLT) (4699)* Value Reference Range W DK BLOOD CELL COUNT 10.5 3.8-10.8 - Thousan d/uL * R ED BLOOD CELL COUNT 6.70 H 4.20-5.80 - Million/ uL * H EMOGLOBIN 18.7 H 13.2-17.1 - g/dL * H EMATOCRIT 57.3 H 39.4-51.1 - % * M CV 85.5 81.4-101.7 - fL * M CH 27.9 27.0-33.0 - pg * M CHC 32.6 31.6-35.4 - g/dL * R DW 14.4 11.0-15.0 - % * P LATELET COUNT 226 140-400 - Thousand/u L * N EUTROPHILS 59.7 - % * A BSOLUTE NEUTROPHILS 6269 1877-4809 - cells/uL * L YMPHOCYTES 31.8 - % * A BSOLUTE LYMPHOCYTES 3339 850-3900 - cells/uL * M ONOCYTES 6.5 - % * A BSOLUTE MONOCYTES 683 200-950 - cells/uL * E OSINOPHILS 1.1 - % * A BSOLUTE EOSINOPHILS 116 15-500 - cells/uL * B ASOPHILS 0.9 - % * A BSOLUTE BASOPHILS 95 0-200 - cells/uL * M PV 9.3 7.5-12.5 - fL * This lab was reviewed by [facility] nicholas Lock on 05/15/2025 at 21:39 PM EST ?LAB: HEMOGLOBIN A1c (496)* Value Reference Range H EMOGLOBIN A1c 6.8 H <5.7 - % * This lab was reviewed by [facility] nicholas Lock on 05/15/2025 at 21:39 PM EST ?LAB: VITAMIN B12/FOLATE, SERUM PANEL (6065)* Value Reference Range F OLATE, SERUM 14.3 - ng/mL * V ITAMIN B12 694 710-6881 - pg/mL * This lab was reviewed by [facility] Hayde on 05/15/2025 at 21:39 PM EST ?LAB: PSA, TOTAL (5363)* Value Reference Range P SA, TOTAL 1.61 < OR = 4.00 - ng/mL * This lab was reviewed by [facility] Hayde on 05/15/2025 at 21:39 PM EST ?LAB: VITAMIN D,25-OH,TOTAL,IA (89275)* Value Reference Range V ITAMIN D,25-OH,TOTAL,IA 43 30-100 - ng/mL * This lab was reviewed by [facility] nicholas Lock on 05/15/2025 at 21:39 PM EST 3.?Hyperlipidemia, unspecified?LAB: THYROID PANEL WITH TSH (1435)* Value Reference Range T 3 UPTAKE 27 22-35 - % * T 4 (THYROXINE), TOTAL 8.1 4.9-10.5 - mcg/dL * F REE T4 INDEX (T7) 2.2 1.4-3.8 - * T SH 6.10 H 0.40-4.50 - mIU/L * This lab was reviewed by Aditya Lock on 05/15/2025 at 21:39 PM EST ?LAB: LIPID PANEL, STANDARD (2420)* Value Reference Range T RIGLYCERIDES 261 H <150 - mg/dL * C HOLESTEROL, TOTAL 159 <200 - mg/dL * H DL CHOLESTEROL 39 L > OR = 40 - mg/dL * L DL-CHOLESTEROL 86 - mg/dL (calc) * C HOL/HDLC RATIO 4.1 <5.0 - (calc) * N ON HDL CHOLESTEROL 120 <130 - mg/dL (calc) * This lab was reviewed by Aditya Lock on 05/15/2025 at 21:39 PM EST ?LAB: COMPREHENSIVE METABOLIC PANEL (74155)* Value Reference Range G LUCOSE 91 65-99 - mg/dL * U ABE NITROGEN (BUN) 17 7-25 - mg/dL * C REATININE 1.53 H 0.70-1.28 - mg/dL * B UN/CREATININE RATIO 11 6-22 - (calc) * S ODIUM 140 135-146 - mmol/L * P OTASSIUM 4.8 3.5-5.3 - mmol/L * C HLORIDE 98 98-110 - mmol/L * C ARBON DIOXIDE 32 20-32 - mmol/L * C ALCIUM 9.4 8.6-10.3 - mg/dL * P ROTEIN, TOTAL 7.2 6.1-8.1 - g/dL * A LBUMIN 4.4 3.6-5.1 - g/dL * G LOBULIN 2.8 1.9-3.7 - g/dL (calc ) * A LBUMIN/GLOBULIN RATIO 1.6 1.0-2.5 - (calc) * B ILIRUBIN, TOTAL 0.6 0.2-1.2 - mg/dL * A LKALINE PHOSPHATASE 101 35-144 - U/L * A ST 22 10-35 - U/L * A LT 27 9-46 - U/L * E GFR 47 L > OR = 60 - mL/min/1 .73m2 * This lab was reviewed by Aditya Lock on 05/15/2025 at 21:39 PM EST ?LAB: CBC (INCLUDES DIFF/PLT) (0027)* Value Reference Range W DK BLOOD CELL COUNT 10.5 3.8-10.8 - Thousan d/uL * R ED BLOOD CELL COUNT 6.70 H 4.20-5.80 - Million/ uL * H EMOGLOBIN 18.7 H 13.2-17.1 - g/dL * H EMATOCRIT 57.3 H 39.4-51.1 - % * M CV 85.5 81.4-101.7 - fL * M CH 27.9 27.0-33.0 - pg * M CHC 32.6 31.6-35.4 - g/dL * R DW 14.4 11.0-15.0 - % * P LATELET COUNT 226 140-400 - Thousand/u L * N EUTROPHILS 59.7 - % * A BSOLUTE NEUTROPHILS 6269 8535-5778 - cells/uL * L YMPHOCYTES 31.8 - % * A BSOLUTE LYMPHOCYTES 3339 850-3900 - cells/uL * M ONOCYTES 6.5 - % * A BSOLUTE MONOCYTES 683 200-950 - cells/uL * E OSINOPHILS 1.1 - % * A BSOLUTE EOSINOPHILS 116 15-500 - cells/uL * B ASOPHILS 0.9 - % * A BSOLUTE BASOPHILS 95 0-200 - cells/uL * M PV 9.3 7.5-12.5 - fL * This lab was reviewed by Aditya Lock on 05/15/2025 at 21:39 PM EST ?LAB: HEMOGLOBIN A1c (496)* Value Reference Range H EMOGLOBIN A1c 6.8 H <5.7 - % * This lab was reviewed by Aditya Lock on 05/15/2025 at 21:39 PM EST ?LAB: VITAMIN B12/FOLATE, SERUM PANEL (3765)* Value Reference Range F OLATE, SERUM 14.3 - ng/mL * V ITAMIN B12 826 276-2191 - pg/mL * This lab was reviewed by Aditya Lock on 05/15/2025 at 21:39 PM EST ?LAB: PSA, TOTAL (5363)* Value Reference Range P SA, TOTAL 1.61 < OR = 4.00 - ng/mL * This lab was reviewed by Aditya Lock on 05/15/2025 at 21:39 PM EST ?LAB: VITAMIN D,25-OH,TOTAL,IA (84516)* Value Reference Range V ITAMIN D,25-OH,TOTAL,IA 43 30-100 - ng/mL * This lab was reviewed by Aditya Lock on 05/15/2025 at 21:39 PM EST 4.?Idiopathic peripheral neuropathy?LAB: THYROID PANEL WITH TSH (7444)* Value Reference Range T 3 UPTAKE 27 22-35 - % * T 4 (THYROXINE), TOTAL 8.1 4.9-10.5 - mcg/dL * F REE T4 INDEX (T7) 2.2 1.4-3.8 - * T SH 6.10 H 0.40-4.50 - mIU/L * This lab was reviewed by Aditya Lock on 05/15/2025 at 21:39 PM EST ?LAB: LIPID PANEL, STANDARD (7600)* Value Reference Range T RIGLYCERIDES 261 H <150 - mg/dL * C HOLESTEROL, TOTAL 159 <200 - mg/dL * H DL CHOLESTEROL 39 L > OR = 40 - mg/dL * L DL-CHOLESTEROL 86 - mg/dL (calc) * C HOL/HDLC RATIO 4.1 <5.0 - (calc) * N ON HDL CHOLESTEROL 120 <130 - mg/dL (calc) * This lab was reviewed by Aditya Lock on 05/15/2025 at 21:39 PM EST ?LAB: COMPREHENSIVE METABOLIC PANEL (57336)* Value Reference Range G LUCOSE 91 65-99 - mg/dL * U ABE NITROGEN (BUN) 17 7-25 - mg/dL * C REATININE 1.53 H 0.70-1.28 - mg/dL * B UN/CREATININE RATIO 11 6-22 - (calc) * S ODIUM 140 135-146 - mmol/L * P OTASSIUM 4.8 3.5-5.3 - mmol/L * C HLORIDE 98 98-110 - mmol/L * C ARBON DIOXIDE 32 20-32 - mmol/L * C ALCIUM 9.4 8.6-10.3 - mg/dL * P ROTEIN, TOTAL 7.2 6.1-8.1 - g/dL * A LBUMIN 4.4 3.6-5.1 - g/dL * G LOBULIN 2.8 1.9-3.7 - g/dL (calc ) * A LBUMIN/GLOBULIN RATIO 1.6 1.0-2.5 - (calc) * B ILIRUBIN, TOTAL 0.6 0.2-1.2 - mg/dL * A LKALINE PHOSPHATASE 101 35-144 - U/L * A ST 22 10-35 - U/L * A LT 27 9-46 - U/L * E GFR 47 L > OR = 60 - mL/min/1 .73m2 * This lab was reviewed by Aditya Lock on 05/15/2025 at 21:39 PM EST ?LAB: CBC (INCLUDES DIFF/PLT) (1635)* Value Reference Range W DK BLOOD CELL COUNT 10.5 3.8-10.8 - Thousan d/uL * R ED BLOOD CELL COUNT 6.70 H 4.20-5.80 - Million/ uL * H EMOGLOBIN 18.7 H 13.2-17.1 - g/dL * H EMATOCRIT 57.3 H 39.4-51.1 - % * M CV 85.5 81.4-101.7 - fL * M CH 27.9 27.0-33.0 - pg * M CHC 32.6 31.6-35.4 - g/dL * R DW 14.4 11.0-15.0 - % * P LATELET COUNT 226 140-400 - Thousand/u L * N EUTROPHILS 59.7 - % * A BSOLUTE NEUTROPHILS 6269 3432-4381 - cells/uL * L YMPHOCYTES 31.8 - % * A BSOLUTE LYMPHOCYTES 3339 850-3900 - cells/uL * M ONOCYTES 6.5 - % * A BSOLUTE MONOCYTES 683 200-950 - cells/uL * E OSINOPHILS 1.1 - % * A BSOLUTE EOSINOPHILS 116 15-500 - cells/uL * B ASOPHILS 0.9 - % * A BSOLUTE BASOPHILS 95 0-200 - cells/uL * M PV 9.3 7.5-12.5 - fL * This lab was reviewed by Aditya Lock on 05/15/2025 at 21:39 PM EST ?LAB: HEMOGLOBIN A1c (496)* Value Reference Range H EMOGLOBIN A1c 6.8 H <5.7 - % * This lab was reviewed by Aditya Lock on 05/15/2025 at 21:39 PM EST ?LAB: VITAMIN B12/FOLATE, SERUM PANEL (7065)* Value Reference Range F OLATE, SERUM 14.3 - ng/mL * V ITAMIN B12 [phone] - pg/mL * This lab was reviewed by Aditya Lock on 05/15/2025 at 21:39 PM EST ?LAB: PSA, TOTAL (5363)* Value Reference Range P SA, TOTAL 1.61 < OR = 4.00 - ng/mL * This lab was reviewed by Aditya Lock on 05/15/2025 at 21:39 PM EST ?LAB: VITAMIN D,25-OH,TOTAL,IA (70087)* Value Reference Range V ITAMIN D,25-OH,TOTAL,IA 43 30-100 - ng/mL * This lab was reviewed by Aditya Lock on 05/15/2025 at 21:39 PM EST 5.?Prostate cancer screening?LAB: THYROID PANEL WITH TSH (7444)* Value Reference Range T 3 UPTAKE 27 22-35 - % * T 4 (THYROXINE), TOTAL 8.1 4.9-10.5 - mcg/dL * F REE T4 INDEX (T7) 2.2 1.4-3.8 - * T SH 6.10 H 0.40-4.50 - mIU/L * This lab was reviewed by Aditya Lock on 05/15/2025 at 21:39 PM EST ?LAB: LIPID PANEL, STANDARD (7920)* Value Reference Range T RIGLYCERIDES 261 H <150 - mg/dL * C HOLESTEROL, TOTAL 159 <200 - mg/dL * H DL CHOLESTEROL 39 L > OR = 40 - mg/dL * L DL-CHOLESTEROL 86 - mg/dL (calc) * C HOL/HDLC RATIO 4.1 <5.0 - (calc) * N ON HDL CHOLESTEROL 120 <130 - mg/dL (calc) * This lab was reviewed by Aditya Lock on 05/15/2025 at 21:39 PM EST ?LAB: COMPREHENSIVE METABOLIC PANEL (41832)* Value Reference Range G LUCOSE 91 65-99 - mg/dL * U ABE NITROGEN (BUN) 17 7-25 - mg/dL * C REATININE 1.53 H 0.70-1.28 - mg/dL * B UN/CREATININE RATIO 11 6-22 - (calc) * S ODIUM 140 135-146 - mmol/L * P OTASSIUM 4.8 3.5-5.3 - mmol/L * C HLORIDE 98 98-110 - mmol/L * C ARBON DIOXIDE 32 20-32 - mmol/L * C ALCIUM 9.4 8.6-10.3 - mg/dL * P ROTEIN, TOTAL 7.2 6.1-8.1 - g/dL * A LBUMIN 4.4 3.6-5.1 - g/dL * G LOBULIN 2.8 1.9-3.7 - g/dL (calc ) * A LBUMIN/GLOBULIN RATIO 1.6 1.0-2.5 - (calc) * B ILIRUBIN, TOTAL 0.6 0.2-1.2 - mg/dL * A LKALINE PHOSPHATASE 101 35-144 - U/L * A ST 22 10-35 - U/L * A LT 27 9-46 - U/L * E GFR 47 L > OR = 60 - mL/min/1 .73m2 * This lab was reviewed by Aditya Lock on 05/15/2025 at 21:39 PM EST ?LAB: CBC (INCLUDES DIFF/PLT) (2554)* Value Reference Range W DK BLOOD CELL COUNT 10.5 3.8-10.8 - [place] d/uL * R ED BLOOD CELL COUNT 6.70 H 4.20-5.80 - Million/ uL * H EMOGLOBIN 18.7 H 13.2-17.1 - g/dL * H EMATOCRIT 57.3 H 39.4-51.1 - % * M CV 85.5 81.4-101.7 - fL * M CH 27.9 27.0-33.0 - pg * M CHC 32.6 31.6-35.4 - g/dL * R DW 14.4 11.0-15.0 - % * P LATELET COUNT 226 140-400 - Thousand/u L * N EUTROPHILS 59.7 - % * A BSOLUTE NEUTROPHILS [phone] - cells/uL * L YMPHOCYTES 31.8 - % * A BSOLUTE LYMPHOCYTES 3339 850-3900 - cells/uL * M ONOCYTES 6.5 - % * A BSOLUTE MONOCYTES 683 200-950 - cells/uL * E OSINOPHILS 1.1 - % * A BSOLUTE EOSINOPHILS 116 15-500 - cells/uL * B ASOPHILS 0.9 - % * A BSOLUTE BASOPHILS 95 0-200 - cells/uL * M PV 9.3 7.5-12.5 - fL * This lab was reviewed by Aditya Lock on 05/15/2025 at 21:39 PM EST ?LAB: HEMOGLOBIN A1c (496)* Value Reference Range H EMOGLOBIN A1c 6.8 H <5.7 - % * This lab was reviewed by Aditya nicholas Lock on 05/15/2025 at 21:39 PM EST ?LAB: VITAMIN B12/FOLATE, SERUM PANEL (7065)* Value Reference Range F OLATE, SERUM 14.3 - ng/mL * V ITAMIN B12 [phone] - pg/mL * This lab was reviewed by Aditya nicholas Lock on 05/15/2025 at 21:39 PM EST ?LAB: PSA, TOTAL (5363)* Value Reference Range P SA, TOTAL 1.61 < OR = 4.00 - ng/mL * This lab was reviewed by Aditya nicholas Lock on 05/15/2025 at 21:39 PM EST ?LAB: VITAMIN D,25-OH,TOTAL,IA (32354)* Value Reference Range V ITAMIN D,25-OH,TOTAL,IA 43 30-100 - ng/mL * This lab was reviewed by Aditya Lock on 05/15/2025 at 21:39 PM EST * Procedure Codes: * true * Date: Generated for Carriei ng/Famaguig/eTransmitting on: 1 07:51 AM EST
--- OUTSIDE RECORDS SUMMARY | 2025-05-12 03:15 | XMS_ITS ---
Author Organization [facility] Address [address] [facility] [address] [place] [address] Care Team Providers Care Desk Representative Name Role Phone Obi Lock Primary Care Provider [phone] REASON FOR VISIT Labs Encounters Encounter Location Date Provider Diagnosis [facility] [address] [facility] [address] [place] [address] 05/12/2025 Obi Lock Plan Of Treatment Next Appt Details Provider Name:Obi Lock, 07/19/2025 09:00:00 AM, [address] [facility] [address], [address], [place], [address], Progress Notes * Elida FLANAGANOB:1950 ([age] yo M)Acc No.[id number]:05/12/2025 LABS Patient: Martin Melo Provider: Milan Lock MD :1950 A ge:74 Y S ex:Male Date:05/12/2025 Address:[place] [id number] Subjective: * Chief Complaints: * L abs Billing Information: * Procedure Codes: * Electronic signature of Mario Lock MD FAAP on 06/01/2025 at 07:51 AM EST Sign off status: Pending * Provider: Milan Lock MD Date: 1 07/13/2024 Generated for Brandie mcintyre/Arash/Kathleen on: 07:51 AM EST
--- OUTSIDE RECORDS SUMMARY | 2025-05-17 04:30 | XMS_ITS ---
Author Organization [facility] Address [address] [place] [address] Care Team Providers Care Ward Clerk Name Role Phone Obi Lock Primary Care Provider Allergies Allergen (clinical drug ingredient) Drug/Non Drug Allergy documented on EMR Reaction Allergy Type Onset Date Status IV DYE (uncoded) Hands and feet swelling Allergy Active niacin Niacin Shook all over Drug Allergy Ac tive REASON FOR VISIT f/u Medications Medication SIG (Take, Route, Frequency, Duration) Notes Start Date End Date Status Atorvastatin Calcium 80 MG Tablet 1 tab(s) orally once a day; Duration: 90 days Active NovoLIN 70/30 FlexPen (70-30) 100 UNIT/ML Suspension Pen-injector 24 units Subcutaneous breakfast and supper 04/27/2025 Active True Metrix Blood Glucose Test - Strip USE DAILY AND NEEDED; Duration: 30 Active Mupirocin 2 % Ointment 1 gomez applied topically 3 times a day; Duration: 7 day(s) 02/03/2025 Active buPROPion HCl ER (SR) 150 MG Tablet Extended Release 12 Hour 1 tab(s) orally every 24 hours; Duration: 90 days Active Dexcom G7 Sensor - Miscellaneous use for CGM; Duration: 90 days DX: E11.69 09/23/2024 Active Metoprolol Tartrate 25 MG Tablet 2 tab(s) orally once daily; Duration: 90 days Active Losartan Potassium 50 MG Tablet 1 tab(s) orally once a day; Duration: 90 days 03/16/2024 Active Rybelsus 14 MG Tablet 1 tab(s) orally on ce a day; Duration: 90 days 03/16/2024 Active Albuterol Sulfate HFA 108 (90 Base) MCG/ACT Aerosol Solution 2 puff as needed Inhalation every 6 hours; Duration: 90 days 11/20/2024 Active Dexcom G7 Mine Exploration Engineer use for CGM; Dominic n: 90 days DX: E11.69 09/23/2024 Active Trelegy Ellipta 100-62.5-25 MCG/ACT Aerosol Powder Breath Activated INHALE 1 PUFF ONE TIME DAILY; Duration: 90 Active Levocetirizine Dihydrochloride 5 MG Tablet 1 tab(s) orally once a day (in the evening); Duration: 90 days Active Ipratropium-Albuterol 0.5-2.5 (3) MG/3ML Solution 3 mL by nebulizer 1 to 2 times daily; Duration: 90 days Active Memantine HCl 5 MG Tablet TAKE 1 TABLET TWICE DAILY; Duration: 90 Active Fluticasone Propionate 50 MCG/ACT Suspension 2 sprays in each nostril once a day; Duration: 90 days prn Active ALBUTEROL (EQV-PROAIR HFA) 90 MCG/INH AEROSOL 2 PUFF(S) INHALED EVERY 6 HOURS; Duration: 90 DAYS prn 06/24/2023 Active Docusate Sodium 250 MG Capsule 1 cap(s) orally once a day; Duration: 90 days 06/21/2022 Active Tamsulosin HCl 0.4 MG Capsule 1 cap(s) orally once a day; Duration: 90 days Active ALLERGY AND CONGESTION RELIEF 10 MG-240 MG TABLET, EXTENDED RELEASE 1 TAB(S) ORALLY ONCE A DAY; Duration: 90 DAYS 06/24/2023 Active Metamucil TABS 2 TABS ORALLY ONCE DAILY Active Aspirin 81 MG TABLET 1 TAB(S) ORALLY ONC E A DAY; Duration: 90 DAYS Active Fish Oil 1000 MG 2 TABS PO QD; Duration: 90 DAYS Active Social History Tobacco Use: Social History Observation Description Date Details (start date - stop date) Former Smoker NA - NA Social History Social History Social Info Question Answer Notes Tobacco Control (Standard) Tobacco use: Former smoker How long has it been since you last smoked? 3-6 months Additional Details Category Social Info Options Details Social History Occupation: Retired Travel outside [place]: yes July 2023 - [place] Alcohol: socially Last drink on Gloria nday - one beer Sexually active: no Recreational drug use: no Exercise: yes Home smoke detector use: yes Caffeine: yes frequency:pot of coffee daily Living Will No Problems Problem Type SNOMED Code ICD Code Onset Dates Problem Status W/U Status Risk Notes Problem Diabetic renal disease (380470846) Type 2 diabetes mellitus with diabetic chronic kidney disease (E11.22) Active confirmed Problem Chronic kidney disease stage 2 (488294073) Chronic kidney disease, stage 2 (mild) (N18.2) Active confirmed Vital Signs Temperature 97.6 degrees Fahrenheit 05/17/20 25 Blood pressure systolic 140 mm Hg 05/17/20 25 Blood pressure diastolic 82 mm Hg 025 Heart Rate 96 /min 05/17/2025 Height 69 in 05/17/2025 Weight 237.2 lbs 05/17/2025 BMI 35.02 kg/m2 05/17/2025 Encounters Encounter Location Date Provider Diagnosis Merg[facility] with [facility] [address] [place] [address] 05/17/2025 Obi Lock Type 2 diabetes mellitus with diabetic chronic kidney disease E11.22 ; Chronic kidney disease, stage 2 (mild) N18.2 ; MCFP (current) use of insulin Z79.4 ; Chronic obstructive pulmonary disease, unspecified COPD type J44.9 and Elevated TSH R79.89 Assessments Encounter Date Diagnosis (ICD Code) Assessment Notes Treatment Notes Treatment Clinical Notes Section Notes 05/17/2025 Type 2 diabetes mellitus with diabetic chronic kidney disease (ICD-10 - E11.22) Will work on getting off of insulin due to improvement in A1c, insurance coverage. Plan to decrease by 4u per week until at zero, and repeat labs shortly afterwards. Continue Rybelsus, and add different medication (SGLT-2?) at that time if indicated. 05/17/2025 Chronic kidney disease, stage 2 (mild) (ICD-10 - N18.2) Cr elevated at new baseline, ~1.3 - 1.5. Repeat metabolic panel and urine microalbumin at next visit. 05/17/2025 termite treater (current) use of insulin (ICD-10 - Z79.4) 05/17/2025 Chronic obstructive pulmonary disease, unspecified COPD type (ICD-10 - J44.9) Continue Trelegy inh. Has adequate supply of rescue inhaler. 05/17/2025 Elevated TSH (ICD-10 - R79.89) TSH mildly elevated to 6.1, but patient is asx. Will repeat labs at next visit. Plan Of Treatment Treatment Notes Assessment Notes Type 2 diabetes mellitus wit h diabetic chronic kidney disease Will work on getting off of insulin due to improvement in A1c, insurance coverage. Plan to decrease by 4u per week until at zero, and repeat labs shortly afterwards. Continue Rybelsus, and add different medication (SGLT-2?) at that time if indicated. Chronic kidney disease, stage 2 (mild) C r elevated at new baseline, ~1.3 - 1.5. Repeat metabolic panel and urine microalbumin at next visit. Chronic obstructive pulmonar y disease, unspecified COPD type Continue Trelegy inh. Has adequate suppl y of rescue inhaler. Elevated TSH TSH mildly elevated to 6.1, but patient is asx. Will repeat labs at next visit. Next Appt Details Provider Name:Obi Lock, 07/19/2025 09:00:00 AM, [address] [facility] [address] [facility], [address], [place], [address], History and Physical Notes * HPI (History of Present Illness) Category Sub-Category Detail Notes Category Not es gen Patient present s for scheduled follow-up. He has no concerns since last visit. He comes with a letter from [employer] stating they will not cover his insulin prescription in 2025 and is wondering what to do about it. He had labs last week showing another decline in A1c from 7.8% --> 6.8% (and all the way down from > 14% in 08/2024) so he may be able to go off of insulin altogether now. No symptoms of high or low blood sugar at home. Other labs last week unremerkable aside from mildly elevated TSH, new baseline elevated Cr (1.35 --> 1.5). Examination Category Sub-Category Detail Notes Category Not es General Examination Heart: Regular Rate and Rhythm, no murmur, rubs or gallops Lungs: LCTAB, No wheezes, c rackles or rhonchi, Good air movement, Extremities: no LE edema Peripheral pulses: normal (2+) bilatera lly General Pleasant and Cooper[place] tive, NAD on RA, Progress Notes * Elida FLANAGANOB:1950 ([age] yo M)Acc No.[id number]:05/17/2025 Progress Notes Patient: Martin BEARDEN Provider: Milan Lock MD :1950 A ge:74 Y S ex:Male Date:05/17/2025 Address:[address], [id number] Subjective: * Chief Complaints: * 1 . F/u. * HPI: g en: Patient presents for scheduled follow-up. He has no concerns since last visit. He comes with a letter from [employer] stating they will not cover his insulin prescription in 2025 and is wondering what to do about it. He had labs last week showing another decline in A1c from 7.8% 6.8% (and all the way down from > 14% in 08/2024) so he may be able to go off of insulin altogether now. No symptoms of high or low blood sugar at home. Other labs last week unremerkable aside from mildly elevated TSH, new baseline elevated Cr (1.35 1.5). * Medical History: * Surgical History: * Hospitalization/Major Diagno stic Procedure: * Family History: F ather: 66 yrs, Brain Hemerage. M other: 56 yrs, Cancer. P aternal Grand Father: . P aternal Grand Mother: . M aternal Grand Father: . Maternal Grand Mother: . P aternal aunt: unknown. M aternal uncle: , cancer. M aternal aunt: , cancer. S iblings: alive, 1 sister -brain cancer, diagnosed with Cancer. C maría: alive. 3 brother(s) , 3 sister(s) . 1 son(s) , 3 daughter(s) - healthy. . * Social History: R ecreational drug use: no. Exercise: yes. Home smoke detector use: yes. Caffeine: yes, frequency:pot of coffee daily. Living Will: No. Alcohol: socially, Last drink on Saturday - one beer. Sexually active: no. Travel outside [place]: yes, July 2023- . Occupation: Retired. Tobacco Control (Standard) T obacco [...] ONE TIME DAILY , Taking Dexcom G7 Mine Exploration Engineer use for CGM , Notes to Pharmacist: DX: E11.69, Taking Memantine HCl 5 MG Tablet TAKE 1 TABLET TWICE DAILY , Taking Albuterol Sulfate HFA 108 (90 Base) MCG/ACT Aerosol Solution 2 puff as needed Inhalation every 6 hours , Taking Dexcom G7 Sensor - Miscellaneous [...] tab(s) orally every 24 hours , Taking Mupirocin 2 % Ointment 1 gomez applied topically 3 times a day , Taking True Metrix Blood Glucose Test - Strip USE DAILY AND NEEDED , Taking NovoLIN 70/30 FlexPen (70-30) 100 UNIT/ML Suspension Pen- injector 24 units Subcutaneous breakfast and supper , Medication List reviewed and reconciled with the patient * Allergies: N iacin: Shook all over, IV DYE: Hands and feet swelling. Objective: * Vitals: N urse: jl, Pain: 0, Temp: 97.6, RR: 18, HR: 96, BP: 140/82, Ht: 69, Wt: 237.2, BMI:35.02. * Examination: G eneral Examination: General P leasant and Cooperative, NAD on RA,. Heart: R egular Rate and Rhythm, no murmur, rubs or gallops. Lungs: L CTAB, No wheezes, crackles or rhonchi, Good air movement,. Peripheral pulses: n ormal (2+) bilaterally. Extremities: n o LE edema. Assessment: * Assessment: 1. T ype 2 diabetes mellitus with diabetic chronic kidney disease - E11.22 (Primary) 2 . C hronic kidney disease, stage 2 (mild) - N18.2 3 . L catrachita term (current) use of insulin - Z79.4 4 . C hronic obstructive pulmonary disease, unspecified COPD type - J44.9 5 . E levated TSH - R79.89 Plan: * Treatment: 2. C hronic kidney disease, stage 2 (mild) Notes: Cr elevated at new baseline, ~1.3 - 1.5. Repeat metabolic panel and urine microalbumin at next visit. 3. C hronic obstructive pulmonary disease, unspecified COPD type Notes: Continue Trelegy inh. Has adequate supply of rescue inhaler. 4. E levated TSH Notes: TSH mildly elevated to 6.1, but patient is asx. Will repeat labs at next visit. * Procedure Codes: G 2211 Complex e/m visit add on * * Sign off status: Completed true * Provider: Milan Lock MD Date: 07/18/2024 Generated for Printi ng/Famaguig/eTransmitting on: 1 07:52 AM EST
--- OUTSIDE RECORDS SUMMARY | 2025-06-01 07:51 | XMS_ITS | Clinical Summary ---
Author Organization [facility] Address [address] [place] [address] Phone Care Team Providers Care Plaster Applicator Name Role Phone Obi Lock MD Primary Care Provider [phone] Allergies Active Allergy Reactions Criticality Noted Date [...] Aerosol InhalerIndications:Pulm onary emphysema, unspecified emphysema type Inhale 2 Puffs into the lungs every [...] Oral TabletIndications:Type 2 diabetes mellitus without complication Take 1 Tab by mouth daily (with breakfast). 90 Tab 3 05/11/20 16 Active metoprolol (LOPRESSOR) 25 mg Oral TabletIndications:Shelbi pierson hypertension, unspecified Take 1 Tab by mouth daily. 90 Tab 3 10/12/19 16 Active tamsulosin (FLOMAX) 0.4 mg Oral Capsule, Sust. Release 24 hrIndications:BPH with urinary obstruction Take 1 Cap by mouth nightly. 90 Cap 3 10/12/19 16 Active tiotropium (SPIRIVA WITH HANDIHALER) 18 mcg Inhl Capsule, w/Inhalation DeviceIndications:Pulmo nary emphysema, unspecified emphysema type inhale the contents of one capsule in [...] 03/07/2015, 08/18/2014, 10/14/2012 Hemoglobin A1c 08/19/2016 02/20/2016, 09/02, 03/07/2015, Additional history exists Kidney Health: eGFR 02/19/2017 02/20/2016, 09/21/2015, 03/07/2015, Additional history exists Lipids 02/19/2017 02/20/2016, 02/01, 09/21/2015, Additional history exists Colon Cancer Screening 07/05/2018 Colonoscopy 07/05/2018 07/05/2015, 11/02, 06/29/2009 Pneumococcal Vaccine 50+ (3 of 3 - PCV20 or PCV21) 10/11/2020 10/12/2015, 01/05/2012 RSV or 60+ (1 - 1-dose 75+ series) 2024 COVID-19 Vaccine ( - 2024- season) 2025 Influenza Vaccine (#1) 2025 6, [...] 30 General 32.7(03/07/20 16 10:10 AM EDT) Delaney Castillo MA Maintain a healthy diet, exercise regularly and maintain an ideal body weight General No Delaney Sesay MA Stay Tobacco Free Lifestyle No Delaney Sesay MA HEMOGLOBIN A1C < 7.0 Result Component 6.1( 6 10:33 AM EDT) Delaney Castillo MA Procedures Procedure Name Priority Date/Time Associated Diagnosis Comments COMPREHENSIVE METABOLIC PANEL Routine 02/20/2016 10:33 AM EDT High triglycerides Type 2 diabetes mellitus without complication (HCC) LIPID PANEL REFLEX Routine 02/20/2016 10 :33 AM EDT High triglycerides HEMOGLOBIN A1C Routine 02/20/2016 10:33 AM EDT Type 2 diabetes mellitus without complication (HCC) GMED COLONOSCOPY Routine 07/05/2015 12:0 0 PM EST ALBUMIN/CREATININE RATIO, RANDOM URINE Routine 03/07/2015 7:40 AM EDT Type 2 diabetes mellitus without complication (HCC) CT CHEST WO CONTRAST Routine 04/10/2012 2:20 PM EST Pneumonia from Last 3 Months or Most Recently Relevant to Health Maintenance Results * (ABNORMAL) LIPID PANEL REFLEX (02/20/2016 10:33 AM EDT) Cholesterol 222(H) <=200 mg/dL [facility] Comment: < 200 Desirable 200 - 239 Borderline High >= 240 High Triglyceride 198(H) <=150 mg/dL [facility] Comment: < 150 Normal 150 - 199 Borderline High 200 - 499 High >= 500 Very High HDL 42 >=40 mg/dL [facility] Comment: > 60 Optimal 40 - 60 Acceptable < 40 Low Blood specimen (specimen) UPPER LIMB STRUCTURE / Unknown 02/20/2016 10:33 AM EDT 02/20/2016 2:05 PM EDT us Jayy Wheeler MD CHEMISTRY ORDERABLES Final Resul t Performing Organization Address [facility] Co de Phone Number [facility] [address] [place] [address] * HEMOGLOBIN A1C (02/20/2016 10:33 AM EDT) Hgb A1c 6.1 <=7.0 % [facility] Comment: Reference Interval for Hgb A1c Hgb A1c Interpretation < 6.0 Non-Diabetic Range 6.0 - 7.0 ADA Therapeutic Target > 7.0 Action suggested Blood specimen (specimen) UPPER LIMB STRUCTURE / Unknown 02/20/2016 10:33 AM EDT 02/20/2016 2:09 PM EDT us Jayy Wheeler MD CHEMISTRY ORDERABLES Final Resul t Performing Organization Address [facility] Co de Phone Number [facility] [address] [place] [address] * (ABNORMAL) COMPREHENSIVE METABOLIC PANEL (02/20/2016 10:33 AM EDT) Sodium 139 136 - 145 mmol/L [facility] Potassium 4.5 3.5 - 5.0 mmol/L [facility] Chloride 100 98 - 107 mmol/L [facility] Total CO2 26 22 - 29 mmol/L [facility] Anion Gap 13 7 - 16 mmol/L [facility] Calcium 9.9 8.8 - 10.2 mg/dL [facility] Glucose Lvl 104(H) 82 - 100 mg/dL [facility] BUN 17 8 - 23 mg/dL [facility] Creatinine 1.26 0.67 - 1.30 mg/dL [facility] Albumin 4.7(H) 3.2 - 4.6 gm/dL [facility] Total Protein 7.1 6.4 - 8.3 gm/dL [facility] Bili Total 0.4 0.1 - 1.4 mg/dL [facility] AST 22 <=40 IU/L [facility] ALT 21 <=41 IU/L [facility] Alk Phos 44 40 - 129 IU/L [facility] GFR Afr Am >60 [facility] GFR Non Afr Am 57 [facility] Blood specimen (specimen) UPPER LIMB STRUCTURE / Unknown 02/20/2016 10:33 AM EDT 02/20/2016 2:05 PM EDT us Jayy Wheeler MD CHEMISTRY ORDERABLES Edited Resu lt - Final [facility] [address] [place] [address] * GMED COLONOSCOPY (07/05/2015 12:00 PM EST) 07/05/2015 12:0 0 PM EST Impressions [facility] - 07/05/2015 12:25 PM EST Moderate [...] MD GI PROCEDURE ORDERABLES Eleanor ramachandran Result Performing Organization Address [facility]/ZIP Co de Phone Number [facility] [address] [place] [address] * (ABNORMAL) MICROALBUMIN/CREATININE RATIO URINE (03/07/2015 7:40 AM EDT) Urine Albumin 53.0 mg/L [facility] Urine Creatinine 38.2 mg/dL [facility] Ur Albumin/Creat 139(H) 0 - 20 mg/gm [facility] Urine specimen (specimen) 03/07/2015 7:40 AM EDT 03/07/2015 2:08 PM EDT Jayy Wheeler MD URINE ORDERABLES Edited Result - Final Performing Organization Address City/[facility]/ZIP Co de Phone Number [facility] [address] [place] [address] * CT CHEST WO CONTRAST (04/10/2012 2:20 [...] and peripheral cystic changes,right greater than left. us Ean Paz DO IMG CT ORDERABLES Final Resul t from Last 3 Months or Most Recently Relevant to Health Maintenance Insurance MEDICARE [place] PART A [place] B MEDICARE SELECT SUPPLEMENT MEDICARE [place] PART A [place] B MEDICARE [employer] SU[employer]LEMENT Advance Directives For more information, please contact: [phone] * Full Code (Latest Code Status on File) Date Activated Date Inactivated Comments 01/04/2012 1:39 PM 01/07/2012 1:07 PM Care Teams Plaster Applicator Relationship Specialty Start Date End Date Obi Lock MD [address] [place] [id number] PCP - General Internal Medicine-Adolescent Medicine 10/21/17
--- OUTSIDE RECORDS SUMMARY | 2025-06-01 07:51 | XMS_ITS | Clinical Summary ---
Author Organization [facility] Address [address] [place] [address] Care Team Providers Care Flumer Name Role Phone Obi Lock MD Primary Care Provider [phone] Allergies Active Allergy Reactions Criticality Noted Date [...] by mouth 2 (two) times a day. 10/12/19 16 Active buPROPion XL (Wellbutrin XL) 150 MG 24 hr tablet Take 1 tablet (150 mg) by mouth 1 (one) time each day. 04/15/20 23 Active polyethylene glycol (Miralax) 17 g packet Take 17 g by mouth 1 (one) time each day. Active levocetirizine (Xyzal) 5 MG tablet Take 1 tablet (5 mg) by mouth 1 (one) time each day in the evening. 04/03/20 23 Active atorvastatin (Lipitor) 80 MG tablet Take 1 tablet (80 mg) by mouth 1 (one) time each day in the evening. 03/07/20 16 Active omega-3 (Fish Oil) 1200 MG capsule Take 1 capsule (1,200 mg) by mouth 1 (one) time each day in the evening. Active Aspirin 81 MG capsule Take 81 mg by mouth 1 (one) time each day in the evening. Active fluticasone (Flonase) 50 MCG/ACT nasal spray Administer 2 sprays into each nostril if needed for allergies. 06/05/19 24 Active promethazine-de xtromethorphan (Phenergan-DM) 6.25-15 MG/5ML syrup Take by mouth 4 (four) times a day if needed for cough. Active semaglutide (Rybelsus) 3 MG tablet Take 3 mg by mouth 1 (one) time each day before breakfast. Active Continuous Glucose Nailing Machine Operator (Dexcom G7 Nailing Machine Operator) device use as directed 10/15/19 25 Active Continuous Glucose Sensor (Dexcom G7 Sensor) misc change every 10 days as directed 10/15/19 25 Active HumuLIN 70/30 KWIKPEN (70-30) 100 UNIT/ML injection pen inject 24 units subcutaneously 2 TIMES A DAY 10/17/19 25 Active BD Pen Needle Hodan 2nd Gen 32G X 4 MM misc use as directed 10/24/19 25 Active dapagliflozin (Farxiga) 10 MG tabletIndicatio ns:Type 2 diabetes mellitus with diabetic chronic kidney disease, unspecified CKD stage, unspecified whether skilled nursing insulin use Take 1 tablet by mouth daily. 90 tablet 3 11/07/19 25 Active losartan (Cozaar) 25 MG tabletIndicatio ns:Type 2 diabetes mellitus with diabetic chronic kidney disease, unspecified CKD stage, unspecified whether ocean transportation intermediary insulin use Take 1 tablet by mouth daily. 90 tablet 3 11/07/19 25 Active TRUEplus Lancets 28G misc USE DAILY AND NEEDED 01/07/20 25 Active Multiple Vitamin (MULTI VITAMIN MENS PO) 11/21/19 25 Active albuterol 108 (90 Base) MCG/ACT inhaler Inhale 2 puffs every 4 hours as needed for shortness of breath or wheezing. 1 each 01/28/20 25 Active ipratropium-alb uterol (Duo-Neb) 0.5-2.5 mg/3 mL nebulizer solution Take 3 mL by nebulization every evening. 180 mL 01/28/20 25 Active Trelegy Ellipta 100-62.5-25 MCG/ACT aerosol powder Inhale 1 puff daily. 28 each 01/28/20 25 Active Active Problems Problem Noted Date Diagnosed Date Class 2 severe obesity due t o excess calories with serious comorbidity and body mass index (BMI) of 36.0 to 36.9 in adult 05/08/2024 Acute kidney injury (OBI) with acute tubular nec rosis (ATN) 04/09/2024 [...] (10/23/2023): Added automatically from request for surgery [id number] Bacterial pneumonia 05/09/2016 Renal insufficiency 03/16/2015 Hyponatremia 08/25/2014 BPH with urinary obstruction 06/01/2014 COPD (chronic obstructive pulmonary disease) High triglycerides 10/22/2012 ED (erectile dysfunction) 07/01/2012 T2DM (type 2 diabetes mellitus) 03/05/2011 Anxiety 05/29/2010 Colon polyp 10/14/2009 HTN (hypertension) 10/14/2009 Pure hypercholesterolemia 10/14/2009 Resolved Problems Problem Noted Date Diagnosed Date Resolved Date Lower urinary tract symptoms (LUTS) 06/08/2024 07/08/2024 Pneumonia 04/04/2016 02/21/2025 Encounters Date Type Department Care Team Description 05/31/2025 Travel from Last 3 Months Immunizations Immunization Administration [...] Care Team (Late st Contact Info) Description 06/04/2025 9:40 AM EST Office Visit [facility] [address] [place] [address] Tony Hernandez MD [address] [place] [address] 01/26/2026 1:00 PM EDT Office Visit [facility] [address] [place] [address] Alice Robbins MD [address] [place] [address] Health Maintenance Due Date Last Done Comments [facility]-Diabetes: Hemoglobin A1C 1950 [facility]-Hepatitis C Screening 1950 [facility]-Medicare Annual Wellness (AWV) 1950 [facility]-/Child/Adol SDOH Screenings 1950 Diabetes: Dental Exam 12/26/1959 [facility]- SDOH Screenings 12/26/1967 [facility]-Adult SDOH Screenings 12/26/1967 [facility]-DTaP,Tdap,and Td Vaccines (1 - Tdap) 1968 CT Colonography 1994 Colonoscopy 1994 FIT-DNA 1994 FIT 1994 FOBT 1994 Sigmoidoscopy 1994 [facility]-Colorectal Cancer Screening 1994 [facility]-Zoster Vaccines (2 of 3) 09/18/2017 07/24/2017, 03/12/2012 [id number] Vaccine (4 - season) 2025 04/21/2021, 08/10/2020, 07/13/2020 [facility]-Depression Screening 07/08/2025 07/08/2024 [facility]-Pneumococcal Vaccine: 50+ Years Completed 03/03/2022, 02/12/2018, 10/12/2015, Additional history exists [facility]-RSV Vaccine: 60+ Years or Completed 06/01/2024 [facility]-Abdominal Aortic Aneurysm (AAA) Screening Completed 06/25/2024, 05/06/2024 [facility]-Obesity Intervention Completed 025, 11/06/2024, 07/08/2024, Additional history exists [facility]-Influenza Vaccine Completed 02/03/2025 , 03/16/2024, 02/13/2023, Additional history exists HPV Vaccines (No Doses Required) Completed [facility]-HIB Vaccines Aged Out No longer e [...] patient's age to complete this topic Insurance [facility] MEDICARE Care Teams Flumer Relationship Specialty Start Date End Date Obi Lock MD [facility] [address] PCP - General Internal Medicine 10/23/23
--- OUTSIDE RECORDS SUMMARY | 2025-06-01 07:51 | XMS_ITS | Encounter Summary ---
Author Organization [facility] Address [address] [place] [address] Care Team Providers Care Finished Hardware Erector Name Role Phone Obi Lock MD Primary Care Provider [phone] Encounter Details Date Type Department Care Team (Late st Contact Info) Description 03/23/2024 Telephone [facility] [address] [facility] [address] [place] [address] Tawanda Pires MD [address] [place] [address] Social History Tobacco Use Types Packs/Day Years [...] or training? Not on file Preferred Language Korean 09/20/2022 Sex and Gender Information Value Date Recorded Sex Assigned at Not on file Legal Sex Male 10:02 AM EST Gender Identity Not on file Sexual Orientation Not on file documented as of this encounter Plan of Treatment Upcoming Encounters Date Type Department Care Team (Late st Contact Info) Description 06/11/2025 9:40 AM EST Office Visit [facility] [address] [facility] [address] [place] [address] Tawanda Pires MD [address] [facility] [address] [place], [place] [id number] documented as of this encounter Visit Diagnoses Not on filedocumented in this encounter Care Teams Finished Hardware Erector Relationship Specialty Start Date End Date Obi Lock MD [address] [facility] [address] [place] [address] PCP - General Adolescent Medicine 07/19/22 documented as of this encounter
--- OUTSIDE RECORDS SUMMARY | 2025-06-01 07:51 | XMS_ITS | Encounter Summary ---
Author Organization [place] [address] Care Team Providers Care Signal Worker Name Role Phone Ean Syed MD Primary Care Provider + Obi Lock MD Primary Care Provider [phone] Encounter Details Date Type Department Care Team (Late st Contact Info) Description 07/05/2015 Orders Only [facility] [address] [facility] [address] [place] [id number] Rosalio Faye MD Social History Tobacco Use [...] EST) 07/05/2015 12:0 0 PM EST Impressions [facility] - 07/05/2015 12:25 PM EST Moderate [...] MD GI PROCEDURE ORDERABLES Eleanor ramachandran Result [address] [address] documented in this encounter Visit Diagnoses Not on filedocumented in this encounter Care Teams Signal Worker Relationship Specialty Start Date End Date Ean Syed MD [address] [place] [address] PCP - General 06/22/09 04/30/17 Obi Lock MD [address] [place] [address] [address] [place] [address] PCP - General Internal Medicine-Adolescent Medicine 10/21/17 documented as of this encounter
--- OUTSIDE RECORDS SUMMARY | 2025-06-01 07:51 | XMS_ITS | Encounter Summary ---
Author Organization [facility] Address [address] [place] [address] Care Team Providers Care Qa Intern Name Role Phone Obi Lock MD Primary Care Provider [phone] Reason for Referral * Consultation (Routine) - Closed Specialty Diagnoses / Procedures Referred By Charles giang Referred To Contact Nephrology Diagnoses Renal insufficiency Renal cyst Elevated serum creatinine Obi Lock MD [facility] [address] [address] fax: [facility] Nephrology, Bone & Mineral Metabolism [address] [place] [address] Phone: tel: fax: Referral ID Status Reason Start Date Expiration Date V isits Requested Visits Authorized [id number] Closed Specialty Services Required 03/18/2024 09/17/2025 1 1 Encounter Details Date Type Department Care Team (Latest Contact Info) Description 03/18/2024 Community Orders Community Practice [address] [place] [address] [place] [address] Renal insufficiency (Primary Dx); Renal cyst; Elevated serum creatinine Social History Tobacco Use Types Packs/Day Years Used Date Smoking Tobacco: Some Days Cigarettes 0.3 68.1 Started: [birth year]03/1958 Passive Smoke Exposure: Past Smokeless [...] Description 06/04/2025 9:40 AM EST Office Visit [facility] [address] [facility] [address] [place] [address] Tony Hernandez MD [address] [place] [address] 01/26/2026 1:00 PM EDT Office Visit [facility] [address] [place] [address] Alice Robbins MD [address] [place] [address] Scheduled Referrals Name Type Priority [...] documented as of this encounter Care Teams Qa Intern Relationship Specialty Start Date End Date Obi Lock MD [facility] [address] [address] PCP - General Internal Medicine 10/23/23 documented as of this encounter
--- OUTSIDE RECORDS SUMMARY | 2025-06-01 07:51 | XMS_ITS | Encounter Summary ---
Author Organization [facility] Address [address] [place] [address] Care Team Providers Care Search Planner Name Role Phone Obi Lock MD Primary Care Provider [phone] Encounter Details Date Type Department Care Team (Latest Contact Info) Description 05/31/2025 Travel Social History Tobacco Use Types Packs/Day [...] as of this encounter Functional Status * Travel Screening Question Answer Date of Assessment Author Have you traveled internatio augustine or domestically in the last month? No 05/31/2025 2:54 PM EST Mycha rt, Generic documented as of this encounter Mental Status * Travel Screening Question Answer Entry Date Author Have you traveled internatio augustine or domestically in the last month? No 05/31/2025 2:54 PM EST Mycha rt, Generic documented in this encounter Plan of Treatment Upcoming Encounters Date Type Department Care Team (Late st Contact Info) Description 06/04/2025 9:40 AM EST Office Visit [facility] [address] [facility] [address] [place] [address] Tony Hernandez MD [address] [place] [address] 01/26/2026 1:00 PM EDT Office Visit [facility] [address] [place] [address] Alice Robbins MD [address] [place] [address] documented as of this encounter Visit Diagnoses Not on filedocumented in this encounter Additional Health Concerns Assessment Noted Time A fall risk assessment has been complete d for the patient 01/27/2025 4:17 PM EDT A Body Mass Index follow-up plan has been documented for the patient 01/27/2025 4:52 PM EDT documented as of this encounter Care Teams Search Planner Relationship Specialty Start Date End Date Obi Lock MD [facility] [address] [address] PCP - General Internal Medicine 10/23/23 documented as of this encounter
--- OUTSIDE RECORDS SUMMARY | 2025-06-01 07:51 | XMS_ITS | Encounter Summary ---
Author Organization [facility] [place] [address] Care Team Providers Care Programming Development Project Manager Name Role Phone Ean Syed MD Primary Care Provider + Obi Lock MD Primary Care Provider [phone] Encounter Details Date Type Department Care Team (Late st Contact Info) Description 11/21/2011 Orders Only [facility] [address] [facility] [address] [place] [address] Rosalio Faye MD Social History Tobacco Use [...] COLONOSCOPY (11/21/2011 12:00 AM EDT) 11/21/2011 Impressions [facility] - 11/21/2011 10:30 AM EDT The patient has a very redundant colon. Diverticulosis of the sigmoid colon and distal descending colon Polyp at 50cm in the descending colon (polypectomy) Otherwise normal colonoscopy to cecum Narrative [facility] - 11/21/2011 10:30 AM EDT Performing Provider: Rosalio Guenthner, M.D. Referring Provider: Shaun Syed MD us Rosalio Faye MD GI PROCEDURE ORDERABLES Eleanor l Result [facility] [address] [place] [id number] documented in this encounter Visit Diagnoses Not on filedocumented in this encounter Care Teams Programming Development Project Manager Relationship Specialty Start Date End Date Ean Syed MD [address] [place] [address] PCP - General 06/22/09 04/30/17 Obi Lock MD [address] [place] [address] [address] [place] [id number] PCP - General Internal Medicine-Adolescent Medicine 10/21/17 documented as of this encounter
--- OUTSIDE RECORDS SUMMARY | 2025-06-01 07:51 | XMS_ITS | Encounter Summary ---
Author Organization [facility] Address [address] [place] [address] Care Team Providers Care Etl Manager Name Role Phone Obi Lock MD Primary Care Provider [phone] Reason for Referral * Consultation (Routine) - Closed Specialty Diagnoses / Procedures Referred By Contac t Referred To Contact Pulmonary Disease / Pulmonology Diagnoses Abnormal findings on imaging test Chronic cough Sweating increase Renal mass Obi Lock MD [facility] [address] [address] fax: Denny Ybarra MD [address] [place] [address] Phone: tel: fax: Referral ID Status Reason Start Date Expiration Date V isits Requested Visits Authorized [id number] Closed Specialty Services Required 09/13/2023 03/14/2025 1 1 Encounter Details Date Type Department Care Team (Late st Contact Info) Description 09/13/2023 Community [facility] Community Practice [address] [place] [address] [place] [address] Abnormal findings on imaging test (Primary Dx); [...] Description 06/04/2025 9:40 AM EST Office Visit [facility] [address] [facility] [address] [place] [address] Tony Hernandez MD [address] [place] [address] 01/26/2026 1:00 PM EDT Office Visit [place] [facility] [address] [place] [address] Alice Robbins MD [address] [place] [address] Scheduled Referrals Name Type Priority [...] documented as of this encounter Care Teams Etl Manager Relationship Specialty Start Date End Date Obi Lock MD [facility] [address] [address] PCP - General Internal Medicine 10/23/23 documented as of this encounter
--- OUTSIDE RECORDS SUMMARY | 2025-06-01 07:52 | XMS_ITS | Patient Health Record ---
Author Organization [facility] D LUCIA Address [address] [place] [address] Care Team Providers Care Guide Dog Trainer Name Role Phone Obi Lock Primary Care Provider [phone] Migration, Provider Unavailable Unavailable Allergies Allergen (clinical drug ingredient) Drug/Non Drug Allergy documented on EMR Reaction Allergy Type Onset Date Status IV DYE (uncoded) Hands and feet swelling Allergy Active niacin Niacin Shook all over Drug Allergy Ac tive Results Component Value Reference Range Flag Notes THYROID PANEL WITH TSH (3236 ) Reviewed date:05/15/2025 09:39:30 PM Interpretation: Performing Lab:SUSHANT, [employer]-eCommHube13[address], LeftronicFuxcYI[address] Everett Flores Notes/Report: NON-FASTING; NON-FASTING; NON-FASTING; NON-FASTING; NON-FAST FASTING:YES FASTING: YES T3 UPTAKE 27 22-35 % N T4 (THYROXINE), TOTAL 8.1 4.9-10.5 mcg/dL N FREE T4 INDEX (T7) 2.2 1.4-3.8 N TSH 6.10 0.40-4.50 mIU/L H LIPID PANEL, STANDARD (8190) Reviewed date:05/15/2025 09:39:31 PM Interpretation: Performing Lab:SUSHANT eCardioe[address]ABLE Assessment Centres, LeftronicInowWU[address] Everett Flores Notes/Report: NON-FASTING; NON-FASTING; NON-FASTING; NON-FASTING; [...] LDL-C. King SS et al. DIEUDONNE. 2013;310(19): 8058-9658 ([email or web address]) CHOL/HDLC RATIO 4.1 <5.0 (calc) N NON HDL CHOLESTEROL 120 <130 mg/dL (calc) N For patients with diabetes plus 1 major ASCVD risk factor, treating to a non-HDL-C goal of <100 mg/dL (LDL-C of <70 mg/dL) is considered a therapeutic option. COMPREHENSIVE METABOLIC JEFFREY Michelle (13369) Reviewed date:05/15/2025 09:39:31 PM Interpretation: Performing Lab:S[facility]Dorothy Updo9061 [facility], [facility] HospitalVxpyJB[address] Everett Flores Notes/Report: NON-FASTING; NON-FASTING; NON-FASTING; NON-FASTING; [...] Reviewed date:05/15/2025 09:39:31 PM Interpretation: Performing Lab:SUSHANT [employer]-Dorothy [address], [facility] HospitalKxpsGK[address] Everett Flores Notes/Report: NON-FASTING; NON-FASTING; NON-FASTING; NON-FASTING; [...] 9.3 7.5-12.5 fL N ABSOLUTE NEUTROPHILS 6269 1363-3856 cells/uL N ABSOLUTE LYMPHOCYTES 3339 850-3900 cells/uL N ABSOLUTE MONOCYTES 683 200-950 cells/uL N ABSOLUTE EOSINOPHILS 116 15-500 cells/uL N ABSOLUTE BASOPHILS 95 0-200 cells/uL N NEUTROPHILS 59.7 N LYMPHOCYTES 31.8 N MONOCYTES 6.5 N EOSINOPHILS 1.1 N BASOPHILS 0.9 N HEMOGLOBIN A1c (496) Reviewed date:05/15/2025 09:39:31 PM Interpretation: Performing Lab:SUSHANT [employer]-BUX [address], [facility] HospitalXtiqQK[address] Everett Flores Notes/Report: NON-FASTING; NON-FASTING; NON-FASTING; NON-FASTING; NON-FAST FASTING:YES FASTING: YES HEMOGLOBIN A1c 6.8 <5.7 % H For someone without known diabetes, a hemoglobin [...] for diagnosis of diabetes for children. VITAMIN B12/FOLATE, SERUM PA BRANDI (7065) Reviewed date:05/15/2025 09:39:31 PM Interpretation: Performing Lab:SUSHANT [employer]-eCommHube13[address]ki work, Relativity TechnologiesOydpMR[address] Everett Flores Notes/Report: NON-FASTING; NON-FASTING; NON-FASTING; NON-FASTING; NON-FAST FASTING:YES FASTING: YES VITAMIN B12 516 935-8604 pg/mL N FOLATE, SERUM 14.3 N Reference Range Low: <3.4 Borderline: 3.4-5.4 Normal: >5.4 PSA, TOTAL (8560) Reviewed date:05/15/2025 09:39:31 PM Interpretation: Performing Lab:SUSHANT [employer]-eCommHube13[address], Relativity TechnologiesFthdQA[address] Everett Flores Notes/Report: NON-FASTING; NON-FASTING; NON-FASTING; NON-FASTING; NON-FAST FASTING:YES FASTING: YES PSA, TOTAL 1.61 < OR = 4.00 ng/mL N interpreted with this fact in mind. This test was performed using the Siemens chemiluminescent method. Values obtained from different assay methods cannot be used interchangeably. PSA levels, regardless of value, should not be interpreted as absolute evidence of the presence or absence of disease. The total PSA value from this assay system is standardized against the WHO standard. The test result will be approximately 20% lower when compared to the equimolar-standardized total PSA (Salvatore Konawa). Comparison of serial PSA results should be VITAMIN D,25-OH,TOTAL,IA (17 876) Reviewed date:05/15/2025 09:39:31 PM Interpretation: Performing Lab:SUSHANT [facility], LeftronicHxsyIC[address] Everett Flores Notes/Report: NON-FASTING; NON-FASTING; NON-FASTING; NON-FASTING; [...] D, (D2,D3), LC/MS/MS is recommended: order code 18333 (patients >2yrs). See Note 1 Note 1 For additional information, please refer to http://education.[email or web address]/faq/MDT023 (This link is being provided for informational/ educational purposes only.) THYROID PANEL WITH TSH (7444 ) Reviewed date:08/22/2024 02:04:47 PM Interpretation: Performing Lab:SUSHANT [employer]-eCommHube1355 [facility]lex[facility] TherapeuticsHam[facility], [facility] HospitalZcphHC[address] Everett Flores Notes/Report: NON-FASTING; NON-FASTING; NON-FASTING; NON-FASTING T3 UPTAKE 29 22-35 % N T4 (THYROXINE), TOTAL 7.0 4.9-10.5 mcg/dL N FREE T4 INDEX (T7) 2.0 1.4-3.8 N TSH 4.43 0.40-4.50 mIU/L N COMPREHENSIVE METABOLIC PANE L (60335) Reviewed date:08/22/2024 02:04:48 PM Interpretation: Performing Lab:SUSHANT LeanMarketeCommHube1355 Selexagen TherapeuticsHampton [facility]al [facility] Center, St[facility] HospitalHdccHF[address] Everett Flores Notes/Report: NON-FASTING; NON-FASTING; NON-FASTING; NON-FASTING GLUCOSE 450 65-99 mg/dL H Verified by repeat analysis. Fasting reference interval For someone without known diabetes, a glucose value >125 mg/dL indicates that they may have diabetes and this should be confirmed with a follow-up test. UREA NITROGEN (BUN) 20 7-25 mg/dL N CREATININE 1.37 0.70-1.28 mg/dL H EGFR 54 > OR = 60 mL/min/1.73m2 L BUN/CREATININE RATIO 15 6-22 (calc) N SODIUM 132 135-146 mmol/L L POTASSIUM 4.6 3.5-5.3 mmol/L N CHLORIDE 92 98-110 mmol/L L CARBON DIOXIDE 27 20-32 mmol/L N CALCIUM 9.8 8.6-10.3 mg/dL N PROTEIN, TOTAL 7.3 6.1-8.1 g/dL N ALBUMIN 4.4 3.6-5.1 g/dL N GLOBULIN 2.9 1.9-3.7 g/dL (calc) N ALBUMIN/GLOBULIN RATIO 1.5 1.0-2.5 (calc) N BILIRUBIN, TOTAL 0.8 0.2-1.2 mg/dL N ALKALINE PHOSPHATASE 99 35-144 U/L N AST 21 10-35 U/L N ALT 31 9-46 U/L N CBC (INCLUDES DIFF/PLT) (639 9) Reviewed date:08/22/2024 02:04:48 PM Interpretation: Performing Lab:SUSHANT, [facility]-[facility] Hospit[facility]1355 [facility], [facility] HospitalKrcsHF[address] Everett Flores Notes/Report: NON-FASTING; NON-FASTING; NON-FASTING; NON-FASTING WHITE BLOOD CELL COUNT 8.5 3.8-10.8 Thousand/uL N RED BLOOD CELL COUNT 5.53 4.20-5.80 Million/uL N HEMOGLOBIN 16.5 13.2-17.1 g/dL N HEMATOCRIT 50.3 38.5-50.0 % H MCV 91.0 80.0-100.0 fL N MCH 29.8 27.0-33.0 pg N MCHC 32.8 32.0-36.0 g/dL N condition. For adults, a slight decrease in the calculated MCHC value (in the range of 30 to 32 g/dL) is most likely not clinically significant; however, it should be interpreted with caution in correlation with other red cell parameters and the patient's clinical RDW 12.0 11.0-15.0 % N PLATELET COUNT 201 140-400 Thousand/uL N MPV 10.3 7.5-12.5 fL N ABSOLUTE NEUTROPHILS 4641 5512-8469 cells/uL N ABSOLUTE LYMPHOCYTES 3145 850-3900 cells/uL N ABSOLUTE MONOCYTES 587 200-950 cells/uL N ABSOLUTE EOSINOPHILS 60 15-500 cells/uL N ABSOLUTE BASOPHILS 68 0-200 cells/uL N NEUTROPHILS 54.6 N LYMPHOCYTES 37.0 N MONOCYTES 6.9 N EOSINOPHILS 0.7 N BASOPHILS 0.8 N HEMOGLOBIN A1c (496) Reviewed date:08/22/2024 02:04:48 PM Interpretation: Performing Lab:SUSHANT [employer]-BUX Rzpp[address], [facility] HospitalTvgxTD[address] Everett Flores Notes/Report: NON-FASTING; NON-FASTING; NON-FASTING; NON-FASTING HEMOGLOBIN A1c >14.0 <5.7 % of total Hgb H For someone without known diabetes, a hemoglobin [...] diabetes for children. Verified by repeat analysis. CT Scan : Chest, Lung Cancer Screening Reviewed date:02/12/2025 11:40:07 AM Interpretation: Performing Lab: Notes/Report: BASIC METABOLIC PANEL (60690 ) Reviewed date:02/12/2025 11:40:41 AM Interpretation: Performing Lab:SUSHANT [employer]BUX Avkn0572 [employer], St[facility] HospitalKvqbEY[address] Everett Flores Notes/Report: NON-FASTING GLUCOSE 74 65-99 mg/dL N Fasting reference interval UREA NITROGEN (BUN) 21 7-25 mg/dL N CREATININE 1.48 0.70-1.28 mg/dL H EGFR 49 > OR = 60 mL/min/1.73m2 L BUN/CREATININE RATIO 14 6-22 (calc) N SODIUM 136 135-146 mmol/L N POTASSIUM 4.9 3.5-5.3 mmol/L N CHLORIDE 98 98-110 mmol/L N CARBON DIOXIDE 29 20-32 mmol/L N CALCIUM 9.5 8.6-10.3 mg/dL N HEMOGLOBIN A1c (496) Reviewed date:2024 11:12:41 AM Interpretation: Performing Lab:SUSHANT [employer] Rimn[address] [facility] Everett Flores Notes/Report: NON-FASTING; NON-FASTING HEMOGLOBIN A1c 7.8 <5.7 % H For someone without known diabetes, a hemoglobin [...] of diabetes for children. BASIC METABOLIC PANEL (46574 ) Reviewed date:2024 11:12:41 AM Interpretation: Performing Lab:CB, [facility]Dorothy Exyo6972 [facility] Everett Flores Notes/Report: NON-FASTING; NON-FASTING GLUCOSE 92 65-99 mg/dL N Fasting reference interval UREA NITROGEN (BUN) 23 7-25 mg/dL N CREATININE 1.47 0.70-1.28 mg/dL H EGFR 50 > OR = 60 mL/min/1.73m2 L BUN/CREATININE RATIO 16 6-22 (calc) N SODIUM 140 135-146 mmol/L N POTASSIUM 4.7 3.5-5.3 mmol/L N CHLORIDE 99 98-110 mmol/L N CARBON DIOXIDE 30 20-32 mmol/L N CALCIUM 9.7 8.6-10.3 mg/dL N Microalbumin (In-House) Reviewed date:10/21/2024 11:46:44 AM Interpretation: Performing Lab: Notes/Report: ALB 150 CRE 50 A:C >300 Reason For Referral Reason needs repeat low dos e CT scan Diagnosis 1 Personal history of nicotine dependence (Z87.891) Referral Organization [facility] Referring Provider First Name Obi Referring Provider Last Name Hayde Referring Provider Speciality Internal M edicine Referred Organization [facility] Referred Address [address], [place], [place],[address],[place] Referred Provider Specialty Diagnostic R adiology Referral Priority Routine Medications Medication SIG (Take, Route, Frequency, Duration) Notes Start Date End Date Status Dexcom G7 Sensor - Miscellaneous use for CGM; Duration: 90 days DX: E11.69 09/23/2024 Active Fluticasone Propionate 50 MCG/ACT Suspension 2 sprays in each nostril once a day; Duration: 90 days prn Active Atorvastatin Calcium 80 MG Tablet 1 tab(s) orally once a day; Duration: 90 days Active ALBUTEROL (EQV-PROAIR HFA) 90 MCG/INH AEROSOL 2 PUFF(S) INHALED EVERY 6 HOURS; Duration: 90 DAYS prn 06/24/2023 Active Metoprolol Tartrate 25 MG Tablet 2 tab(s) orally once daily; Duration: 90 days Active Docusate Sodium 250 MG Capsule 1 cap(s) orally once a day; Duration: 90 days 06/21/2022 Active Losartan Potassium 50 MG Tablet 1 tab(s) orally once a day; Duration: 90 days 03/16/2024 Active Tamsulosin HCl 0.4 MG Capsule 1 cap(s) orally once a day; Duration: 90 days Active Rybelsus 14 MG Tablet 1 tab(s) orally on ce a day; Duration: 90 days 03/16/2024 Active Metamucil TABS 2 TABS ORALLY ONCE DAILY Active Dexcom G7 Hot Saw Helper use for CGM; Duratio n: 90 days DX: E11.69 09/23/2024 Active NovoLIN 70/30 FlexPen (70-30) 100 UNIT/ML Suspension Pen-injector 24 units Subcutaneous breakfast and supper 04/27/2025 Active Trelegy Ellipta 100-62.5-25 MCG/ACT Aerosol Powder Breath Activated INHALE 1 PUFF ONE TIME DAILY; Duration: 90 Active True Metrix Blood Glucose Test - Strip USE DAILY AND NEEDED; Duration: 30 Active Levocetirizine Dihydrochloride 5 MG Tablet 1 tab(s) orally once a day (in the evening); Duration: 90 days Active Mupirocin 2 % Ointment 1 gomez applied topically 3 times a day; Duration: 7 day(s) 02/03/2025 Active Ipratropium-Albuterol 0.5-2.5 (3) MG/3ML Solution 3 mL by nebulizer 1 to 2 times daily; Duration: 90 days Active buPROPion HCl ER (SR) 150 MG Tablet Extended Release 12 Hour 1 tab(s) orally every 24 hours; Duration: 90 days Active ALLERGY AND CONGESTION RELIEF 10 MG-240 MG TABLET, EXTENDED RELEASE 1 TAB(S) ORALLY ONCE A DAY; Duration: 90 DAYS 06/24/2023 Active Aspirin 81 MG TABLET 1 TAB(S) ORALLY ONC E A DAY; Duration: 90 DAYS Active Albuterol Sulfate HFA 108 (90 Base) MCG/ACT Aerosol Solution 2 puff as needed Inhalation every 6 hours; Duration: 90 days 11/20/2024 Active Fish Oil 1000 MG 2 TABS PO QD; Duration: 90 DAYS Active Memantine HCl 5 MG Tablet TAKE 1 TABLET TWICE DAILY; Duration: 90 Active Immunizations Vaccine Route Administration Date Status Comme nts Arexvy IM Intramuscular 06/01/2024 Administered Covid Moderna Unknown 07/13/2020 Administered Covid Moderna Unknown 08/10/2020 Administered Covid Moderna Unknown 04/21/2021 Administered Fluzone High Dose IM Intramuscular 03/13/2019 Administered Fluzone High Dose IM Intramuscular 04/06/2020 Administered Fluzone High Dose IM Intramuscular 03/08/2021 Administered Fluzone High Dose IM Intramuscular 03/03/2022 Administered Fluzone High Dose IM Intramuscular 02/13/2023 Administered Fluzone High Dose IM Intramuscular 03/16/2024 Administered Fluzone High Dose IM Intramuscular 02/03/2025 Administered Influenza (Fluzone)--Medicare only IM Intramuscular 04/10/2017 Administered Influenza (Fluzone)--Medicare only IM Intramuscular 02/12/2018 Administered Influenza-Fluzone 3+years (NON-MEDICARE) Unknown 03/16/2015 Administered Influenza-Fluzone 3+years (NON-MEDICARE) Unknown 03/07/2016 Administered Pneumovax 23 Unknown 01/05/2012 Administered Pneumovax 23 IM Intramuscular 02/12/2018 Administered Prevnar PCV-13 (Pneumococcal conjugate 13) Unknown 10/12/2015 Administered Prevnar PCV-20 (Pneumococcal conjugate 20) IM Intramuscular 03/03/2022 Administered Zostavax (Shingles) Unknown 03/12/2012 Administered Zostavax (Shingles) SC Subcutaneous 07/24/2017 Administere d Social History Tobacco Use: Social History Observation [...] Status Risk Notes Problem Diabetic renal disease (509574574) Type 2 diabetes mellitus with diabetic chronic kidney disease (E11.22) Active confirmed Problem Hyperglycemia due to type 2 diabetes mellitus (913011604839513) Type 2 diabetes mellitus with hyperglycemia (E11.65) Active confirmed Problem Type 2 diabetes mellitus with other specified complication (E11.69) Active confirmed Problem Obesity (833078185) Obesity, unspecified (E66.9) Active confirmed Problem Hyperlipidemia (54809180) Hyperlipidemia, unspecified (E78.5) Active confirmed Problem Seasonal allergic rhinitis (379681829) Other seasonal allergic rhinitis (J30.2) Active confirmed Problem Allergic rhinitis (72775458) Other allergic rhinitis (J30.89) Active confirmed Problem Centrilobular emphysema (14286602) Centrilobular emphysema (J43.2) Active confirmed Problem Chronic kidney disease stage 2 (245848140) Chronic kidney disease, stage 2 (mild) (N18.2) Active confirmed Problem Lower abdominal pain (92591735) Lower abdominal pain, unspecified (R10.30) Active confirmed Problem Obese class I (finding) (887081144903834) Obesity (BMI 30.0-34.9) (E66.9) Active confirmed Problem Vitamin D deficiency (55324341) Vitamin D deficiency (E55.9) Active confirmed Problem Mild cognitive impairment (074261037) Mild cognitive impairment (G31.84) Active confirmed Problem Essential hypertension (68620422) Hypertension, essential (I10) Active confirmed Problem Idiopathic peripheral neuropathy (51460963) Idiopathic peripheral neuropathy (G60.9) Active confirmed Problem Long-term current use of insulin (687665402) halfway (current) use of insulin (Z79.4) Active confirmed Problem Obesity (593019836) Obesity (BMI 30-39.9) (E66.9) Active confirmed Problem Memory loss (87281105) Memory loss (R41.3) Active confirmed Problem COPD - Chronic obstructive pulmonary disease (16943388) Chronic obstructive pulmonary disease, unspecified COPD type (J44.9) Active confirmed Problem Primary osteoarthritis (758575053) Primary osteoarthritis involving multiple joints (M15.0) Active confirmed Problem Obese class II (042722421297349) BMI 36.0-36.9,adult (Z68.36) Active confirmed Problem Peripheral arterial disease (660939950) Peripheral arterial disease (I73.9) Active confirmed Problem Pulmonary nodule (170363576) Pulmonary nodule (R91.1) Active confirmed Problem Benign prostatic hypertrophy with outflow obstruction (321716527) BPH loc w urin obs/LUTS (N40.1) Active confirmed Problem Low oxygen saturation (320805994) Low oxygen saturation (R79.81) Active confirmed Problem Disorder of kidney and/or ureter (290256149) Left renal mass (N28.89) Active confirmed Problem Renal mass (910706234) Renal mass (N28.89) Active confirmed Problem Plain X-ray of chest abnormal (finding) (6913666226) Abnormal chest xray (R93.89) Active confirmed Problem Status post patent foramen ovale closure (Z87.74) Active confirmed Problem Radiology result abnormal (794153103) Abnormal chest CT (R93.89) Active confirmed Problem Tomography - chest abnormal (592138650) Abnormal CT scan, chest (R93.89) Active confirmed Problem Pressure injury of left buttock stage I (disorder) (07944931953259) Pressure injury of left buttock, stage 1 (L89.321) Active confirmed Vital Signs Heart Rate 96 /min 05/17/2025 Temperature 97.6 degrees Fahrenheit 05/17/2025 Blood pressure diastolic 82 mm Hg 05/17/2025 Height 69 in 05/17/2025 Blood pressure systolic 140 mm Hg 05/17/2025 Weight 237.2 lbs 05/17/2025 BMI 35.02 kg/m2 05/17/2025 Encounters Encounter Location Date Provider Diagnosis [facility] [address] [place] [address] 08/19/2024 O[facility] [address] [place] [address] 09/05/2024 Provider Migration Type 2 diabetes mellitus with other specified complication E11.69 [facility] [address] [facility] [place] [address] 05/12/2025 Obi Lock [facility] [address] [facility] [place] [address] 06/01/2024 Obi Lock Mild cognitive impairment G31.84 and Encounter for immunization Z23 [facility] [address] [facility] [place] [address] 08/31/2024 Obi Lock Type 2 diabetes mellitus with other specified complication E11.69 ; Cognitive impairment R41.89 and Mild cognitive impairment G31.84 [facility] [address] [facility] [place] [address] 09/16/2024 Obi Lock Type 2 diabetes mellitus with hyperglycemia E11.65 and roasterman (current) use of insulin Z79.4 [facility] [address] [facility] [place] [address] 09/23/2024 Obi Lock Type 2 diabetes mellitus with other specified complication E11.69 [facility] [address] [facility] [place] [address] 10/21/2024 Obi Lock Type 2 diabetes mellitus with hyperglycemia E11.65 and Chronic obstructive pulmonary disease, unspecified COPD type J44.9 [facility] [address] [facility] [place] [address] 12/23/2024 Obi Lock Type 2 diabetes mellitus with other specified complication E11.69 ; Hyperlipemia, idiopathic familial E78.5 ; Hypertension, essential I10 and Routine medical exam Z00.00 [facility] [address] [facility] [place] [address] 02/03/2025 Obi Lock Type 2 diabetes mellitus with other specified complication E11.69 ; Elevated serum creatinine R79.89 ; Pressure injury of left buttock, stage 1 L89.321 ; Personal history of nicotine dependence Z87.891 ; Hypertension, essential I10 ; Chronic obstructive pulmonary disease, unspecified COPD type J44.9 ; Routine medical exam Z00.00 and Immunization(s) administered Z23 [facility] [address] [place] [address] 05/17/2025 Obiira Lock Type 2 diabetes mellitus with diabetic chronic kidney disease E11.22 ; Chronic kidney disease, stage 2 (mild) N18.2 ; roasterman (current) use of insulin Z79.4 ; Chronic obstructive pulmonary disease, unspecified COPD type J44.9 and Elevated TSH R79.89 [facility] [address] [place] [address] 06/15/2024 Obiira Lock Type 2 diabetes mellitus with other specified complication E11.69 [facility] [address] [address] 07/09/2024 Obi Besson [facility] [address] [place] [address] 07/13/2024 Obi Besson Type 2 diabetes mellitus with other specified complication E11.69 [facility] [address] [facility] [address] [place] [address] 08/19/2024 Obi Besson [facility] [address] [facility] [address] [place] [address] 08/19/2024 Obi Besson Type 2 diabetes mellitus with other specified complication E11.69 and Idiopathic peripheral neuropathy G60.9 [facility] [address] [place] [address] 09/16/2024 Obi Besson [facility] [address] [place] [address] 09/16/2024 Obi Besson Type 2 diabetes mellitus with hyperglycemia E11.65 [facility] [address] [facility] [address] [place] [address] 09/23/2024 Obi Besson [facility] [address] [place] [address] 10/16/2024 Obi Besson [facility] [address] [place] [address] 10/16/2024 Obi Besson [facility] [address] [facility] [address] [place] [address] 10/21/2024 Obi Besson [facility] [address] [place] [address] 11/20/2024 Obi Lock [facility] [address] [facility] [address] [place] [address] 12/21/2024 Obi Garridoson [facility] [address] [place], [place] [address] 02/04/2025 Obi Lock Personal history of nicotine dependence Z87.891 [facility] [address] [place], [place] [address] 04/16/2025 Obi Lock [facility] [address] [place], [place] [address] 05/11/2025 Obi Lock Vitamin D deficiency E55.9 ; Type 2 diabetes mellitus with other specified complication E11.69 ; Hyperlipidemia, unspecified E78.5 ; Idiopathic peripheral neuropathy G60.9 and Prostate cancer screening Z12.5 Assessments Encounter Date Diagnosis (ICD Code) Assessment Notes Treatment Notes Treatment Clinical Notes Section Notes 08/19/2024 Type 2 diabetes mellitus with other specified complication (ICD-10 - E11.69) 08/19/2024 Idiopathic peripheral neuropathy (ICD-10 - G60.9) 09/05/2024 Type 2 diabetes mellitus with other [...] will bring records in next time 09/16/2024 roasterman (current) use of insulin (ICD-10 - Z79.4) [...] Rybelsus -RTC 6-8w for A1c following Pt's [facility] cruise 10/21/2024 Chronic obstructive pulmonary disease, unspecified COPD type (ICD-10 - J44.9) Patient is doing well, does use 1.5 L nasal cannula oxygen. I have provided documentation that he would need this on his plane flight. Otherwise I think he should do well. Again follow-up when he gets back from [place] 02/04/2025 Personal history of nicotine dependence (ICD-10 - Z87.891) 05/11/2025 Type 2 diabetes mellitus with other specified complication (ICD-10 - E11.69) 05/17/2025 Type 2 diabetes mellitus with diabetic [...] panel and urine microalbumin at next visit. 05/11/2025 Vitamin D deficiency (ICD-10 - E55.9) 02/03/2025 Type 2 diabetes mellitus with other [...] R79.89) Creatinine is improving. Will recheck today 12/23/2024 Type 2 diabetes mellitus with other [...] familial (ICD-10 - E78.5) - Continue statin 08/31/2024 Cognitive impairment (ICD-10 - R41.89) Patient remains on memantine. Seems to be fairly stable. No side effects. Will continue to follow. Obviously improving glycemic control will help vision and sensory issues and hopefully cognitive impairment 07/13/2024 Type 2 diabetes mellitus with other specified complication (ICD-10 - E11.69) 06/15/2024 Type 2 diabetes mellitus with other specified complication (ICD-10 - E11.69) 06/01/2024 Mild cognitive impairment (ICD-10 - G31.84) [...] 06/01/2024 Encounter for immunization (ICD-10 - Z23) 08/31/2024 Type 2 diabetes mellitus with other [...] now and increase Rybelsus to 14. 08/31/2024 Mild cognitive impairment (ICD-10 - G31.84) 12/23/2024 Hypertension, essential (ICD-10 - I10) - BP well controlled - Continue losartan, refilled 02/03/2025 Pressure injury of left buttock, stage 1 (ICD-10 - L89.321) Discussed adjusting pillows on his chairs, discussed mupirocin to help with healing 05/17/2025 roasterman (current) use of insulin (ICD-10 - Z79.4) 05/11/2025 Hyperlipidemia, unspecified (ICD-10 - E78.5) 05/17/2025 Chronic obstructive pulmonary disease, unspecified COPD type (ICD-10 - J44.9) Continue Trelegy inh. Has adequate supply of rescue inhaler. 05/11/2025 Idiopathic peripheral neuropathy (ICD-10 - G60.9) 02/03/2025 Personal history of nicotine dependence (ICD-10 - Z87.891) Has been a neck smoker for a while, still needs low-dose CTs, this will be ordered 12/23/2024 Routine medical exam (ICD-10 - Z00.00) Up-to-date with colon screening and low-dose CT screening. Has stopped smoking. Vaccines up-to-date. No recent falls. No Cognitive impairment not noted. 02/03/2025 Hypertension, essential (ICD-10 - I10) 05/11/2025 Prostate cancer screening (ICD-10 - Z12.5) 05/17/2025 Elevated TSH (ICD-10 - R79.89) TSH mildly elevated to 6.1, but patient is asx. Will repeat labs at next visit. 02/03/2025 Chronic obstructive pulmonary disease, unspecified COPD [...] Night Pulse Oximetry 03/23/2022 H-VIT D, 25-HYDROXY 01/07/2017 H-VIT D, 25-HYDROXY 04/02/2017 H-VIT D, 25-HYDROXY 06/29/2016 H-URINE CREATININE PROTEIN 04/10/2017 Lexiscan Stress Test 08/11/2020 M-Complete Blood Count Auto Diff 021 M-Complete Blood Count Auto Diff 020 M-Comprehensive Metabolic Panel 10/16/19 20 M-Comprehensive Metabolic Panel 01/24/20 21 M-BUN & Creatinine 10/23/2019 M-Hemoglobin A1C 10/16/2019 M-Hemoglobin A1C 01/23/2021 M-Lipid Panel 10/16/2019 M-Lipid Panel 01/23/2021 M-Prostate Specific Ag Screen 03/01/2021 M-ABG PH 03/21/2022 M-Vitamin D 25 Hydroxy 10/16/2019 M-Vitamin D 25 Hydroxy 08/01/2020 M-Vitamin D 25 Hydroxy 08/30/2021 M-Vitamin D 25 Hydroxy 03/01/2021 M-Vitamin D 25 Hydroxy 03/29/2020 M-Vitamin D 25 Hydroxy 01/23/2021 M-Vitamin D 25 Hydroxy 06/05/2021 M-Vitamin D 25 Hydroxy 11/30/2021 M-Vitamin D 25 Hydroxy 02/05/2023 M-Vitamin D 25 Hydroxy 11/02/2020 CT Scan : Abdomen with IV contrast 10/02 CULTURE, AEROBIC AND ANAEROBIC W/GRAM ST AIN (4446) 09/03/2023 LIPID PANEL, STANDARD (7600) 11/14/2023 COMPREHENSIVE METABOLIC PANEL (40994) CBC (INCLUDES DIFF/PLT) (4299) CBC (INCLUDES DIFF/PLT) WITH SMEAR REVIE W (93396) 09/02/2023 HEMOGLOBIN A1c (496) 11/14/2023 VITAMIN D,25-OH,TOTAL,IA (72782) 024 Future Test Test Name Order Date Hemoglobin A1c 04/22/2017 Basic Metabolic Panel (8) 04/22/2017 Next Appt Details Provider Name:Obi Lock, 07/19/2025 09:00:00 AM, [address], [address], [place], [address], Insurance Providers Payer Name Payer Address Payer Phone Subscriber Number Group Number Insured Name Patient Relationship to Insured Coverage Start Date Coverage End Date [employer]ARE [address] [address] [place] [address] [phone] [id number] Martin Flanagan Self - patient is the [...] Low-dose CT scan January 2021 with benign-appearing masses.... last done 01/2025 Colonoscopy 03/2022 with 4 tubular adeno mas Lung Nodule or Mass 2023 Surgical History Surgery Date(Month/Year) Colonoscopy 07/05/15 Hole fixed in heart 2006 Bilateral Rotator Cuff Repair 2008 Colonoscopy 03/2017 Colonoscopy 03/2022 Eyelid lift 04/2022 laser surgery on prostate 09/2022 Dental extraction 10/23 Hospitalization History Reason Date(Month/Year) pneumonia 2011
--- OUTSIDE RECORDS SUMMARY | 2025-06-01 07:52 | XMS_ITS | Clinical Summary ---
[facility] Address [address] [place] [address] Care Team Providers Care Pricing Actuary Name Role Phone Obi Lock MD Primary [...] MG capsule 24 hr capsule Daily. Active [place]-3 Fatty Acids (fish oil) 1000 MG capsule [...] (09/17/2022): Added automatically from request for surgery [id number] Immunizations Immunization Administration Dates Next Due 31-influenza [...] or training? Not on file Preferred Language Uzbek 09/20/2022 Sex and Gender Information Value Date [...] Description 06/11/2025 9:40 AM EST Office Visit [facility] [address] [place] [address] Tawanda Pires MD [address] [place] [address] Health Maintenance Due Date Last Done Comments [...] (1 - 1- dose 75+ series) 2024 INFLUENZA VACCINE 01/01/2025 03/16/2024, , 03/03/2022, Additional history exists COVID-19 Vaccine ( - 2024-2 6 season) 2025 04/21/2021, 08/10/2020, 07/13/2020 COLONOSCOPY 07/05/2025 07/05/2015 COLORECTAL CANCER SCREENING 07/05/2025 Pneumococcal Vaccine 50+ Completed 022, 02/12/2018, 10/12/2015, Additional history exists Insurance [address] [place] [id number] [facility] MEDICARE ADVANTAGE PPO Care Teams Pricing Actuary Relationship Specialty Start Date End Date Obi Lock MD [address] [facility] [place] [address] PCP - General Adolescent Medicine 07/19/22
[2025-06-01 07:59] LABS: Microscopic, Urine URINE MICROSCOPIC (MICROSCOPIC)
[2025-06-01 08:18] LABS: Nucleated Red Blood Cells % 0 %; Red Blood Count 6.58 M/mm3 (4.60-6.20)
[2025-06-01 08:21] LABS: Hematocrit 57.0 % (42.0-52.0); Mean Corpuscular HGB Conc 32.8 g/dL (31.8-35.4); Mean Corpuscular Hemoglobin 28.4 pg (27.0-31.2); Mean Corpuscular Volume 86.6 fl (80-94); Platelet Count 199 K/mm3 (142-424); Red Cell Distribution Width-SD 43.0 fL; White Blood Count 9.2 K/mm3 (4.8-10.8)
[2025-06-01 08:26] LABS: Hemoglobin 18.7 g/dL (14.1-18.0)
[2025-06-01 09:09] LABS: Albumin Level 4.2 g/dl (3.5-5.0); Anion Gap 11.6 mEq/L (5-15); Blood Urea Nitrogen 22 mg/dl (9-20); Calcium 9.1 mg/dl (8.4-10.2); Carbon Dioxide 31 mmol/L (22.0-30.0); Chloride 99 mmol/L (98-107); Creatinine,Serum 1.50 mg/dl (0.66-1.25); Estimated Glomerular Filt Rate 46 ml/min (>60); GFR (African American) 55 ML/MIN (>60); Glucose 121 mg/dl (74-100); Phosphorous 4.8 mg/dl (2.5-4.5); Potassium 4.6 mmoL/L (3.5-5.1); Sodium 137 mmol/L (136-145)
[2025-06-01 09:28] LABS: 25-OH Vitamin D, Total 26.9 ng/mL (30-100)
[2025-06-01 10:57] LABS: Bilirubin,Urine Negative (Negative); Color,Urine YELLOW (Yellow); Glucose,Urine (UA) 3+ (Negative); Ketones,Urine Negative (Negative); Leukocyte Esterase,Urine Negative (Negative); PH,Urine 6.0 (5.0-8.5); Protein,Urine 2+ (Negative); Specific Gravity, Urine 1.025 (1.005-1.030); Urobilinogen,Urine 0.2 EU/dl (0.2)
[2025-06-01 12:07] LABS: Bacteria,Urine Trace /lpf; Squamous Epithelial Cell,Urine Occasional #/hpf (0-5); WBC,Urine Occasional #/hpf (0-3)
[2025-06-02 13:39] LABS: Albumin 3.3 g/dL (2.9-4.4); Alpha-1-Globulin 0.3 g/dL (0.0-0.4); Alpha-2-Globulin 1.1 g/dL (0.4-1.0); Gamma Globulin 0.9 g/dL (0.4-1.8)
== END 2025-06-01 23:59 | disposition home or self-care (01) ==
LOC: LAB 07:49
PROVIDERS: PCP Internal Medicine Adolescent Medicine; Visit Provider Student in an Organized Health Care Education/Training Program
DX: E11.22 Type 2 diabetes mellitus with diabetic chronic kidney disease (principal); N18.9 Chronic kidney disease, unspecified
CPT/HCPCS: 36415; 80069; 81001; 82043; 82306; 82570; 83970; 84155; 84156; 84165; 85027